=== PATIENT | female | born 2000 | race Hispanic/Latino ===

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

== ENCOUNTER 2021-10-14 18:08 | Emergency (ER) | payer OTHER ==
--- OUTSIDE RECORDS SUMMARY | 2021-10-14 18:11 | XMS REPORT | Continuity of Care Document ---
:2000 Author Organization [facility] t Address [address] [place] [address] Care Team Providers Name Role Phone Fatoumata Khan Primary Care Physician [phone] Gaviota Fong LMSW Attending Clinician Unavailable SUDARSHAN Attending Clinician Unavailable RADHA Attending Clinician Unavailable Ranjan MEZA Attending Clinician Unavailable Payers Payer Name Policy Type Policy Number Effective Date Expiration Date S ource Advance Directives Directive Decision Effective Termination Comments Source Date Date Healthcare Agents on N/A [facility] FileNameRelationshipHealthcare [facility] Agent Medical RelationshipCommunicationLeticia Branch [facility] [phone] (Mobile) Problems Condition Condition Condition Status Onset Resolution Last Treating Co mments Source Name Details Category Date Date Treatment Clinician Date Vitamin D Vitamin D Disease Active Uni vers deficiency deficiency 03-05 it y of 00:00: [address] Anxiety Anxiety Disease Active Univers and and 03-05 [place] [facility] [place] Irritabili Irritabili Disease Active U nivers ty and ty and 03-05 ity of anger anger 00:00: [address] Class 1 Class 1 Disease Active Univers obesity obesity 03-05 ity of due to due to 00:00: [place] excess excess 00 Medical calories calories Branch without without serious serious comorbidit comorbidit y with y with body mass body mass index index (BMI) of (BMI) of 34.0 to 34.0 to 34.9 in 34.9 in adult adult Ingrown Ingrown Disease Active Univers hair hair - ity of 00:00: [place] [facility] Nexplanon Nexplanon Disease Active 2018-[address] in place -13 ity of 00:00: [place] 00 Medical Branch Other Other Disease Active 2018-08 [facility] general general 1-04 ity of counseling counseling 00:00: Jack conklin and advice and advice 00 Me dical for for Branch contracept contracept nancie nancie management management Routine Routine Disease Active 2018-08 [facility] 0-14 it y of follow[place] [facility] Allergies, Adverse Reactions, Alerts Allergy Allergy Status Severity Reaction(s) Onset Inactive Treating Comm ents Source Name Type Date Date Clinician NO KNOWN Drug Active Univers ALLERGIE Class ity of S [facility] Social History Social Habit Start Date Stop Date Quantity Comments Source History SDOH University o f Alcohol Frequency [place] M ed[facility] History SDOH University o f Alcohol Std [place] Medical Drinks Branch History SDOH University o f Alcohol Binge [place] [facility] [place] Alcohol intake 2021-03-05 2021-03-05 Current drinker Unive rsity of 00:00:00 00:00:00 of alcohol [place] [facility] (finding) [place] Alcohol Comment 2021-03-04 2021-03-04 occassional/rare Uni versity of 00:00:00 00:00:[address] [facility] Tobacco use and 2018-11-10 2018-11-10 Never used Universit y of exposure 00:00:00 00:00:[address] [facility] Sex Assigned At [birth year] Universit y of 00:00:00 00:00:[address] [facility] Smoking Status Start Date Stop Date Source [facility] Medications Ordered Filled Start Stop Current Ordering Indication Dosage Frequency Signature Comments Components Source Medication Medication Date Date Medication? Clinician (SIG) Name Name ergocalcife Yes [id number] Take 1 Univers rol, 7-13 capsule by ity of vitamin d2, 00:00: mouth [place] (VITAMIN 00 weekly. Medical D2) 1,250 Branch mcg (50,000 unit) capsule traZODone Yes [id number] 50mg Take 1 U nivers 50 mg 7-12 tablet by ity of tablet 00:00: mouth at [place] 00 bedtime. Medical Branch levonorgest 2019-08 Yes [id number] 1{tbl} Take 1 Univers rel-ethinyl 1-18 tablet by ity of estradiol 00:00: mouth [place] (SRONYX) 00 daily. Medical 0.1-20 Branch mg-mcg per tablet Immunizations Ordered Filled Immunization Date Status Comments [facility] e Immunization Name Name Influenza Virus 2020-07-11 Completed Universit y of Vaccine Quad .5 mL 00:00:00 [facility] IM 6+ MO Branch HPV9 2019-05-16 Completed University 00:00:[address] [facility] TDAP (ADACEL) 2019-03-07 Completed University of VACCINE 00:00:[address] [facility] Influenza Virus 2018-11-10 Completed Universit y of Vaccine Quad .5 mL 00:00:00 [facility] 6+ MO Branch HPV 2015-04-17 Completed [facility] 00:00:[address] [facility] Procedures This patient has no known procedures. Encounters Start End Encounter Admission Attending Care Care Encounter Source Date/Time Date/Time Type Type Clinicians Facility Department ID 2021-09-17 2021-09-17 JOSEFINA Schuler [id number] Univers 00:00:00 00:00:00 Management Naa [place] [id number] [id number] [address] 2021-04-08 2021-04-08 Outpatient R SUDARSHAN [facility] [id number] Univers 15:00:00 15:00:00 [facility] [id number] 2021-04-08 [facility] [id number] Univers 15:00:00 15:00:00 [facility] 2021-03-04 2021-03-04 Outpatient R RADHA [facility] [id number] Univers 15:00:00 15:00:00 VICTORIA [id number] mary o [facility] 2021-03-04 2021-03-04 [facility] [id number] Univers 15:00:00 15:00:[address] [facility] 2021-02-06 2021-02-06 Outpatient R DERRICK, [facility] [id number] Univers 13:15:00 13:15:00 FATOUMATA [id number] ity o f [facility] 2020-10-11 2020-10-11 Outpatient R AKINSIPE, [facility] [id number] Univers 15:15:00 15:15:00 FATOUMATA [id number] ity o f [facility] 2020-10-11 2020-10-11 Outpatient R AKINSIPE, [facility] [id number] Univers 15:15:00 15:15:00 FATOUMATA ity o [facility] 2020-09-11 2020-09-11 Outpatient R AKINSIPE, [facility] [id number] Univers 15:00:00 15:00:00 FATOUMATA [id number] ity o [facility] 2020-09-11 2020-09-11 Outpatient R AKINSIPE, [facility] [id number] Univers 15:00:00 15:00:00 FATOUMATA ity o [facility] 2020-07-11 2020-07-11 Outpatient R AKINSIPE, [facility] [id number] Univers 16:00:00 16:00:00 FATOUMATA [id number] ity o [facility] 2020-07-11 2020-07-11 Outpatient R AKINSIPE, [facility] [id number] Univers 16:00:00 16:00:00 FATOUMATA ity o [facility] 2020-07-10 2020-07-10 Outpatient R AKINSIPE, [facility] [id number] Univers 15:00:00 15:00:00 FATOUMATA [id number] ity o [facility] 2020-07-10 2020-07-10 Outpatient R AKINSIPE, [facility] [id number] Univers 15:00:00 15:00:00 FATOUMATA ity o [facility] 2020-06-20 2020-06-20 Outpatient R AKINSIPE, [facility] [id number] Univers 08:15:00 08:15:00 FATOUMATA [id number] ity o [facility] 2020-06-20 2020-06-20 Outpatient R AKINSIPE, [facility] [id number] Univers 08:15:00 08:15:[address] [facility] 2020-01-24 2020-01-24 Outpatient R DERRIKC [facility] [id number] Univers 15:30:00 15:30:00 FATOUMATA [id number] mary silva [facility] 2020-01-24 2020-01-24 Outpatient R DERRICK [facility] [id number] Univers 15:30:00 15:30:00 FATOUMATA hernandez [facility] Results This patient has no known results.
--- NOTE | 2021-10-14 21:12 | RAD REPORT ---
EXAM DESCRIPTION: Abdelrahman Single View10/14/2021 9:05 pm CLINICAL HISTORY: Chest pain COMPARISON: 2015 FINDINGS: The lungs appear clear of acute infiltrate. The heart is normal size IMPRESSION: No acute abnormalities displayed
[2021-10-14] MEDS ORDERED: KETOROLAC 30 MG/ML INJ ONE (21:21)
[2021-10-14] MEDS ORDERED: METHYLPREDNISOLONE 125 MG INJ ONE (21:21)
[2021-10-14 21:29] LABS: Urine Blood Trace-intact (Negative); Urine Glucose Negative (Negative); Urine Protein Negative (Negative)
[2021-10-14 21:56] LABS: Absolute Lymphocytes (CBC) 3.5 K/uL (0.7-4.9); Hematocrit 38.8 % (36.0-45.0); Lymphocytes % 37.5 % (15.3-44.8); MPV 7.2 fL (7.6-11.3); RBC Red Blood Cell Count 4.52 M/uL (3.86-4.86)
[2021-10-14 22:05] LABS: BUN Blood Urea Nitrogen 6 mg/dL (7-18); Bicarbonate 28 mmol/L (21-32); Glucose Level 111 mg/dL (74-106); Potassium 3.4 mmol/L (3.5-5.1); Sodium Level 140 mmol/L (136-145)
--- NOTE | 2021-10-14 22:13 | EDPHYS ---
Physician Documentation [facility] Name: Erna Villeda Age: 20 yrs Sex: Female : 2000 Arrival Date: 10/14/2021 Time: 18:11 Bed 12 Private MD: ED Physician Fernando Alston HPI: 10/14 21:39 This 20 yrs old Female presents to ER via Ambulatory with complaints of Back kdr Pain, Shortness Of Breath. 21:39 The patient presents with pain that is acute, with no known mechanism of injury. The kdr symptoms are located in the. Onset: The symptoms/episode began/occurred gradually, 1 week(s) ago. The pain does not radiate. Associated signs and symptoms: Pertinent positives: weakness, Shortness of breath. The problem was sustained from unknown cause. Modifying factors: The patient symptoms are alleviated by nothing, the patient symptoms are aggravated by any movement, movement. Severity of symptoms: At their worst the symptoms were mild, in the emergency department the symptoms are unchanged. The patient has not experienced similar symptoms in the past. The patient has not recently seen a physician. Patient states that she has had back pain for about a week and also has been short of breath. She feels as if the pain prohibits her from taking a deep breath makes her short of breath. She denies any cough, fever or other associated upper respiratory symptoms. Historical: - Allergies: 18:47 No Known Allergies; ph - PMHx: 18:47 UTI; ph - Immunization history:: Adult Immunizations unknown. - Social history:: Smoking status: Patient denies any tobacco usage or history of. ROS: 21:59 Constitutional: Negative for fever, chills, and weight loss, Eyes: Negative for injury, kdr pain, redness, and discharge, ENT: Negative for injury, pain, and discharge, Neck: Negative for injury, pain, and swelling, Cardiovascular: Negative for chest pain, palpitations, and edema, Abdomen/GI: Negative for abdominal pain, nausea, vomiting, diarrhea, and constipation, : Negative for injury, bleeding, discharge, and swelling, MS/Extremity: Negative for injury and deformity, Skin: Negative for injury, rash, and discoloration, Neuro: Negative for headache, weakness, numbness, tingling, and seizure activity. Psych: Negative for depression, anxiety, suicide ideation, homicidal ideation, and hallucinations, Allergy/Immunology: Negative for hives, rash, and allergies, Endocrine: Negative for neck swelling, polydipsia, polyuria, polyphagia, and marked weight changes, Hematologic/Lymphatic: Negative for swollen nodes, abnormal bleeding, and unusual bruising. 21:59 Respiratory: Positive for dyspnea on exertion, shortness of breath, on exertion. Negative for cough, hemoptysis, orthopnea, pleurisy, sputum production. 21:59 Back: Positive for pain at rest, pain with movement, of the left scapular area and right scapular area. 22:14 : Positive for urinary symptoms, burning with urination. kdr Exam: 21:59 Constitutional: This is a well developed, well nourished patient who is awake, alert, kdr and in no acute distress. Head/Face: Normocephalic, atraumatic. Eyes: Pupils equal round and reactive to light, extra-ocular motions intact. Lids and lashes normal. Conjunctiva and sclera are non-icteric and not injected. Cornea within normal limits. Periorbital areas with no swelling, redness, or edema. Neck: Trachea midline, no thyromegaly or masses palpated, and no cervical lymphadenopathy. Supple, full range of motion without nuchal rigidity, or vertebral point tenderness. No Meningismus. Chest/axilla: Normal chest wall appearance and motion. Nontender with no deformity. No lesions are appreciated. Cardiovascular: Regular rate and rhythm with a normal S1 and S2. No gallops, murmurs, or rubs. Normal PMI, no JVD. No pulse deficits. Respiratory: Lungs have equal breath sounds bilaterally, clear to auscultation and percussion. No rales, rhonchi or wheezes noted. No increased work of breathing, no retractions or nasal flaring. Abdomen/GI: Soft, non-tender, with normal bowel sounds. No distension or tympany. No guarding or rebound. No evidence of tenderness throughout. Back: No spinal tenderness. No costovertebral tenderness. Full range of motion. Skin: Warm, dry with normal turgor. Normal color with no rashes, no lesions, and no evidence of cellulitis. MS/ Extremity: Pulses equal, no cyanosis. Neurovascular intact. Full, normal range of motion. Neuro: Awake and alert, GCS 15, oriented to person, place, time, and situation. Cranial nerves II-XII grossly intact. Motor strength 5/5 in all extremities. Sensory grossly intact. Cerebellar exam normal. Normal gait. Psych: Awake, alert, with orientation to person, place and time. Behavior, mood, and affect are within normal limits. Vital Signs: 18:45 BP 114 / 76; Pulse 77; Resp 18; Temp 98.9; Pulse Ox 100% on R/A; Weight 63.5 kg; Height ph 4 ft. 9 in. (144.78 cm); 22:24 BP 125 / 74; Pulse 66; Resp 16 S; Temp 97.7(O); Pulse Ox 100% on R/A; bb 18:45 Body Mass Index 30.30 (63.50 kg, 144.78 cm) ph MDM: 21:59 Data reviewed: vital signs, nurses notes, lab test result(s), radiologic studies. kdr Counseling: I had a detailed discussion with the patient and/or guardian regarding: the historical points, exam findings, and any diagnostic results supporting the discharge/admit diagnosis, lab results, radiology results, the need for outpatient follow up. 22:12 Patient medically screened. kdr 10/14 20:32 Order name: CBC with Diff; Complete Time: 22:05 kdr 10/14 20:32 Order name: Chem 7; Complete Time: 22:11 kdr 10/14 20:30 Order name: CXR XRAY; Complete Time: 22:05 kdr 10/14 21:28 Order name: Urine Dipstick-Ancillary; Complete Time: 22:05 EDCO 10/14 21:31 Order name: Urine --Ancillary (enter results) mw 10/14 20:30 Order name: Urine Dipstick-Ancillary (obtain specimen); Complete Time: 21:31 kdr 10/14 20:30 Order name: Urine Test (obtain specimen); Complete Time: 21:31 kdr Administered Medications: 20:34 CANCELLED (Other Intervention Used): Ketorolac 15 mg IM once bb 21:31 Drug: SOLU-Medrol (methylPrednisoLONE) 125 mg Route: IVP; Site: left antecubital; bb 22:12 Follow up: Response: No adverse reaction bb 21:36 Drug: Ketorolac 15 mg Route: IVP; Site: left antecubital; bb 22:12 Follow up: Response: No adverse reaction bb 22:12 Drug: Bactrim (trimethoprim-sulfamethoxazole) (160 mg-800 mg (DS) 1 tablet Route: PO; bb 22:26 Follow up: Response: No adverse reaction bb Disposition Summary: 10/14/21 22:12 Discharge Ordered Location: Home kdr Problem: new kdr Symptoms: have improved kdr Condition: Stable kdr Diagnosis - Chest pain on breathing kdr - UTI/ Urinary tract infection, site not specified kdr Followup: kdr - With: Private Physician - When: 2 - 3 days - Reason: If symptoms return, Further diagnostic work-up, Recheck today's complaints, Continuance of care, Re-evaluation by your physician Discharge Instructions: - Discharge Summary Sheet kdr - Chest Wall Pain kdr - Costochondritis kdr - Dysuria kdr - Urinary Tract Infection, Adult, [id number] kdr Forms: - Medication Reconciliation Form kdr - Thank You Letter kdr - Antibiotic Education kdr Prescriptions: - Ibuprofen 600 mg Oral Tablet - take 1 tablet by ORAL route every 6 hours As needed take with food; 30 tablet; kdr Refills: 0, Product Selection Permitted - Medrol (Ton) 4 mg Oral Tablets, Dose Pack - take 1 tablet by ORAL route as directed - follow package instructions; 1 kdr packet; Refills: 0, Product Selection Permitted - Bactrim DS 800-160 mg Oral Tablet - take 1 tablet by ORAL route every 12 hours for 7 days; 14 tablet; Refills: 0, kdr Product Selection Permitted Signatures: Dispatcher [employer] Fernando Jones MD MD kdr Marian Heredia RN RN bb Yeni Dunham RN RN ph Corrections: (The following items were deleted from the chart) 20:34 20:31 Ketorolac 15 mg IM once ordered. kdr bb
--- NOTE | 2021-10-14 22:13 | ER ---
Nurse's Notes [facility] Name: Erna Villeda Age: 20 yrs Sex: Female : 2000 Arrival Date: 10/14/2021 Time: 18:11 Bed 12 Private MD: Diagnosis: Chest pain on breathing;UTI/ Urinary tract infection, site not specified Presentation: 10/14 18:45 Chief complaint: Patient states: Upper back pain x 1 week, also reports SOB, states, " ph It's like I can't breath good because of the pain." Denies cough, fever, or other symptoms, also denies injury. Coronavirus screen: Vaccine status: Patient reports being unvaccinated. Ebola Screen: No symptoms or risks identified at this time. Initial Sepsis Screen: Does the patient meet any 2 criteria? No. Patient's initial sepsis screen is negative. Does the patient have a suspected source of infection? No. Patient's initial sepsis screen is negative. Risk Assessment: Do you want to hurt yourself or someone else? Patient reports no desire to harm self or others. Onset of symptoms was October 14, 2021. 18:45 Method Of Arrival: Ambulatory ph 18:45 Acuity: SIVA 4 ph Historical: - Allergies: 18:47 No Known Allergies; ph - PMHx: 18:47 UTI; ph - Immunization history:: Adult Immunizations unknown. - Social history:: Smoking status: Patient denies any tobacco usage or history of. Screenin:22 Abuse screen: Denies threats or abuse. Nutritional screening: No deficits noted. bb Tuberculosis screening: No symptoms or risk factors identified. Fall Risk None identified. Assessment: 20:22 General: Appears in no apparent distress. well groomed, Behavior is calm, cooperative. bb General: Reports she has been having upper back pain x 1 week and SOB starting today. Pain: Complains of pain in back. Neuro: Level of Consciousness is awake, alert, obeys commands, Oriented to person, place, time, situation. Cardiovascular: Capillary refill < 3 seconds Patient's skin is warm and dry. Respiratory: Respiratory effort is even, unlabored, Respiratory pattern is regular. GI: No signs and/or symptoms were reported involving the gastrointestinal system. Derm: Skin is pink, warm \\T\\ dry. Musculoskeletal: Circulation, motion, and sensation intact. 22:23 Reassessment: Patient is alert, oriented x 3, equal unlabored respirations, skin bb warm/dry/pink. pt verbalized understanding of and agrees to plan of care states pain has improved, discharge instructions given pt ambulated with steady gait to exit. Vital Signs: 18:45 BP 114 / 76; Pulse 77; Resp 18; Temp 98.9; Pulse Ox 100% on R/A; Weight 63.5 kg; Height ph 4 ft. 9 in. (144.78 cm); 22:24 BP 125 / 74; Pulse 66; Resp 16 S; Temp 97.7(O); Pulse Ox 100% on R/A; bb 18:45 Body Mass Index 30.30 (63.50 kg, 144.78 cm) ph ED Course: 18:11 Patient arrived in ED. mr 18:47 Triage completed. ph 18:47 Arm band placed on Patient placed in waiting room, Patient notified of wait time. ph 19:32 Fernando Alston MD is Attending Physician. kdr 20:22 Marian Heredia RN is Primary Nurse. bb 20:22 Patient has correct armband on for positive identification. Call light in reach. bb 21:05 CXR XRAY In Process Unspecified. EDMS 21:30 Initial lab(s) drawn, by me, sent to lab. Urine collected: clean catch specimen, clear. bb Inserted saline lock: 22 gauge in left antecubital area, using aseptic technique. Blood collected. 22:25 No provider procedures requiring assistance completed. IV discontinued, intact, bb bleeding controlled, No redness/swelling at site. Pressure dressing applied. Administered Medications: 20:34 CANCELLED (Other Intervention Used): Ketorolac 15 mg IM once bb 21:31 Drug: SOLU-Medrol (methylPrednisoLONE) 125 mg Route: IVP; Site: left antecubital; bb 22:12 Follow up: Response: No adverse reaction bb 21:36 Drug: Ketorolac 15 mg Route: IVP; Site: left antecubital; bb 22:12 Follow up: Response: No adverse reaction bb 22:12 Drug: Bactrim (trimethoprim-sulfamethoxazole) (160 mg-800 mg (DS) 1 tablet Route: PO; bb 22:26 Follow up: Response: No adverse reaction bb Outcome: 22:12 Discharge ordered by . kdr 22:26 Discharged to home ambulatory. bb 22:26 Condition: stable 22:26 Discharge instructions given to patient, Instructed on discharge instructions, follow up and referral plans. medication usage, Demonstrated understanding of instructions, follow-up care, medications, Prescriptions given X 3. 22:32 Patient left the ED. bb Signatures: Dispatcher [employer] EDMS Fernando Alston MD MD kdr Rivera, Mary mr Marian Heredia RN RN bb Yeni Dunham RN RN ph
[2021-10-14] MEDS ORDERED: SMZ./TMP. 800/160 MG TABLET ONE (22:17)
[2021-10-14 23:54] VITALS: O2SAT 100
[2021-10-14 23:55] VITALS: BP 125/74; TEMP 97.7
== END 2021-10-14 22:32 | disposition home or self-care (01) ==
LOC: ER 18:08
DX: R07.1 Chest pain on breathing (principal); N39.0 Urinary tract infection, site not specified
CPT/HCPCS: 85025; 80048; 36415; 81025; 81003; 71045; 96375; 96374; 99284; J2930

== ENCOUNTER 2022-04-29 00:56 | Emergency (ER) | payer OTHER ==
--- OUTSIDE RECORDS SUMMARY | 2022-04-29 00:59 | XMS REPORT | Continuity of Care Document ---
:2000 Author Organization [facility] t Address [facility]3 Ruben Oswald [address] [place] [address] Care Team Providers Name Role Phone Katie Khan Primary Care Physician [phone] Katie Khan Attending Clinician [phone] Payers Payer Name Policy Type Policy Number Effective Date Expiration Date S ource Problems Condition Condition Condition Status Onset Resolution Last Treating Co mments Source Name Details Category Date Date Treatment Clinician Date Vitamin D Vitamin D Disease Active Uni vers deficiency deficiency 03-05 it y of 00:00: [address] Branch Anxiety Anxiety Disease Active Univers and and 7 [place] [facility] [place] Irritabili Irritabili Disease Active U nivers ty and ty and 03-05 ity of anger anger 00:00: [address] Obesity Obesity Disease Active Univers (BMI (BMI 7-13 ity of 30-39.9) 30-39.9) 00:00: [address] Branch Ingrown Ingrown Disease Active Univers hair hair - ity of 00:00: [address] Other Other Disease Active 2018-08 Univers general general 1-04 [place] advice and advice 00 Sd dical for for Branch contracept contracept nancie nancie management management Allergies, Adverse Reactions, Alerts This patient has no known allergies or adverse reactions. Social History Social Habit Start Date Stop Date Quantity Comments Source History [facility] University o f Alcohol Frequency [place] [facility] History [facility] University o f Alcohol Std [place] [facility] Branch History [facility] o f Alcohol Binge [place] [facility] Exposure to 2022-03-09 2022-03-19 Not sure University of SARS-CoV-2 00:00:00 08:35:00 [facility] (event) Branch Alcohol intake 2022-03-19 2022-03-19 Current drinker Unive rsity of 00:00:00 00:00:00 of alcohol [facility] (finding) [place] Alcohol Comment 2021-03-04 2021-03-04 occassional/rare Uni versity of 00:00:00 00:00:00 [facility] Tobacco use and 2018-11-10 2018-11-10 Smokeless tobacco Un iversity of exposure 00:00:00 00:00:00 non-user [facility] Sex Assigned At [birth year] Universit y of 00:00:00 00:00:00 [facility] Smoking Status Start Date Stop Date Source Never smoked tobacco [facility] Medications Ordered Filled Start Stop Current Ordering Indication Dosage Frequency Signature Comments Components Source Medication Medication Date Date Medication? Clinician (SIG) Name Name tanyai 2021- Yes [id number] 1000mg Take 2 Univers n 500 mg 7-29 07-30 tablets by ity of tablet 00:00[place] 04[place]59 [place] for 1 Medical dose. Branch levonorgest Yes [id number] 1{tbl} Take 1 Univers rel-ethinyl 7-27 tablet by [place]y of estradiol [place] (SRONYX[place] 00 the Medical 0.1-20 morning. Branch mg-mcg per tablet levonorgest Yes [id number] 1{tbl} Take 1 Univers rel-ethinyl 7-27 tablet [place] estradiol [place] (SR[place] 00 the Medical 0.1-20 morning. Branch mg-mcg per tablet Immunizations Ordered Filled Immunization Date Status Comments Sour e Immunization Name Name Influenza Virus 2020-07-11 Completed Universit y of Vaccine Quad .5 mL 00:00:00 [facility] IM 6+ MO [place] Influenza Virus 2020-07-11 Completed Universit y of Vaccine Quad .5 mL 00:00:00 [facility] 6+ [place] Branch HPV9 2019-05-16 Completed University of 00:00:00 [facility] HPV9 2019-05-16 Completed University of 00:00:00 [facility] TDAP (ADACEL) 2019-03-07 Completed University of VACCINE 00:00:00 [facility] TDAP (ADACEL) 2019-03-07 Completed University of VACCINE 00:00:00 [facility] Influenza Virus 2018-11-10 Completed Universit y of Vaccine Quad .5 mL 00:00:00 [facility] 6+ MO Branch Influenza Virus 2018-11-10 Completed Universit y of Vaccine Quad .5 mL 00:00:00 [facility] 6+ [place] Branch HPV 2015-04-17 Completed University of 00:00:00 [facility] HPV 2015-04-17 Completed University 00:00:00 [facility] Procedures This patient has no known procedures. Encounters Start End Encounter Admission Attending Care Care Encounter Source Date/Time Date/Time Type Type Clinicians Facility Department ID 2022-04-10 2022-04-10 Refill [facility] [id number] Univers 00:00:00 00:00:00 Katie Woodruff STICK WELDER [id number] ity of REGIONAL [id number] Guilherme as MATERNAL [id number] [facility] & CHILD [address] [place] [address] 2022-03-21 2022-03-21 Telephone [facility] [id number] Univers 00:00:00 00:00:00 Katie Woodruff STICK WELDER [id number] ity of REGIONAL [id number] Guil[place]me as MATERNAL [id number] [facility] & CHILD [address] [place] [address] Results This patient has no known results.
[2022-04-29] MEDS ORDERED: NA CHLORIDE 0.9% 1,000 ML ONE (02:12)
[2022-04-29 02:17] LABS: Urine Blood 1+ (Negative); Urine Glucose Negative (Negative); Urine Protein Negative (Negative); Urine Specific Gravity >=1.030 (1.005-1.030); Urine pH 6.5 (5.0-7.0)
[2022-04-29 02:37] LABS: Absolute Lymphocytes (CBC) 3.4 K/uL (0.7-4.9); Hematocrit 37.4 % (36.0-45.0); Lymphocytes % 37.7 % (15.3-44.8); MPV 7.1 fL (7.6-11.3); RBC Red Blood Cell Count 4.35 M/uL (3.86-4.86)
[2022-04-29 02:47] LABS: BUN Blood Urea Nitrogen 10 mg/dL (7-18); Bicarbonate 26 mmol/L (21-32); Glomerular Filtration Rate 134 ml/min (=/>90); Glucose Level 157 mg/dL (74-106); Potassium 3.5 mmol/L (3.5-5.1); Sodium Level 140 mmol/L (136-145)
[2022-04-29 02:53] LABS: HCG, Quantitative < 1 mIU/mL (1-3)
--- NOTE | 2022-04-29 03:00 | ER ---
Nurse's Notes [facility] Name: Erna Villeda Age: 21 yrs Sex: Female : 2000 Arrival Date: 04/29/2022 Time: 00:57 Bed 26 Private MD: Diagnosis: Abnormal uterine and vaginal bleeding, unspecified;Dysmenorrhea, unspecified Presentation: 04/29 01:25 Chief complaint: Patient states: "I have been cramping a bleeding a little, but it this tw5 isn't my time for my period. I have also been really nauseous, dizzy, and I have a headache.". Coronavirus screen: Vaccine status: Patient reports receiving the 2nd dose of the covid vaccine. unknown. Ebola Screen: Patient negative for fever greater than or equal to 101.5 degrees Fahrenheit, and additional compatible Ebola Virus Disease symptoms Patient denies exposure to infectious person. Patient denies travel to an Ebola-affected area in the 21 days before illness onset. Initial Sepsis Screen: Does the patient meet any 2 criteria? HR > 90 bpm. Does the patient have a suspected source of infection? Yes: Acute abdominal pain. Risk Assessment: Do you want to hurt yourself or someone else? Patient reports no desire to harm self or others. Onset of symptoms was April 28, 2022. 01:25 Method Of Arrival: Ambulatory tw5 01:25 Acuity: SIVA 3 tw5 Triage Assessment: 01:59 General: Appears in no apparent distress. Behavior is calm, cooperative, appropriate tw5 for age. Pain: Complains of pain in suprapubic area, right lower quadrant and left lower quadrant Pain currently is 5 out of 10 on a pain scale. at worst was 8 out of 10 on a pain scale. GI: Bowel sounds present X 4 quads. 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 - Social history:: Smoking status: Patient denies any tobacco usage or history of. Screenin:00 Abuse screen: Denies threats or abuse. Denies injuries from another. Nutritional tw5 screening: No deficits noted. Tuberculosis screening: No symptoms or risk factors identified. Fall Risk None identified. Assessment: 02:00 General: Appears in no apparent distress. comfortable, Behavior is calm. Neuro: No tw5 deficits noted. Cardiovascular: No deficits noted. Respiratory: No deficits noted. GI: Abd is soft and non tender X 4 quads. Reports cramping. Vital Signs: 01:25 BP 120 / 56; Pulse 97; Resp 18; Temp 97.8; Pulse Ox 97% ; Weight 65.77 kg; Height 4 ft. tw5 9 in. (144.78 cm); Pain 8/10; 03:14 BP 112 / 58; Pulse 80; Resp 18; Pulse Ox 100% ; tw5 01:25 Body Mass Index 31.38 (65.77 kg, 144.78 cm) tw5 ED Course: 00:57 Patient arrived in ED. ja2 01:15 Don Alves MD is Attending Physician. [facility] 01:25 Nicole Fortune is Primary Nurse. tw5 01:59 Triage completed. tw5 01:59 Arm band placed on Patient placed in an exam room. tw5 02:00 Awaiting lab results. tw5 02:00 Patient has correct armband on for positive identification. Bed in low position. Call tw5 light in reach. Side rails up X 1. Pulse ox on. NIBP on. Door closed. Noise minimized. Moved to private room. Warm blanket given. Verbal reassurance given. 02:00 Urine collected: clean catch specimen. tw5 02:13 Basic Metabolic Panel Sent. tw5 02:13 CBC with Diff Sent. tw5 02:13 Quantitative Hcg Sent. tw5 02:14 Abo/rh Typing Sent. tw5 02:14 Initial lab(s) drawn, by ca, sent to lab. Inserted saline lock: 20 gauge in right tw5 antecubital area, using aseptic technique. Blood collected. 03:06 US Transvaginal Ob In Process Unspecified. EDMS 03:14 No provider procedures requiring assistance completed. IV discontinued, intact, tw5 bleeding controlled, No redness/swelling at site. Pressure dressing applied. Administered Medications: 02:13 Drug: NS 0.9% 1000 ml Route: IV; Rate: 1 bolus; Site: right antecubital; tw5 03:14 Follow up: Response: No adverse reaction; IV Status: Completed infusion; IV Intake: tw5 1000ml 03:14 Drug: Ketorolac 30 mg Route: IVP; Site: right antecubital; tw5 03:14 Follow up: Response: No adverse reaction; Medication administered at discharge. Medication: 02:00 VIS not applicable for this client. tw5 Intake: 03:14 IV: 1000ml; Total: 1000ml. Outcome: 02:59 Discharge ordered by MD. hogue 03:14 Discharged to home ambulatory. tw 03:14 Condition: improved 03:14 Discharge instructions given to patient, Instructed on discharge instructions, follow up and referral plans. Demonstrated understanding of instructions, follow-up care, medications, Prescriptions given X 1. 03:15 Patient left the ED. Signatures: Dispatcher [employer] Don Kerr MD MD cha Alexander, Nicole Robertson tw5
--- NOTE | 2022-04-29 03:01 | EDPHYS ---
Physician Documentation [facility] Name: Erna Villeda Age: 21 yrs Sex: Female : 2000 Arrival Date: 04/29/2022 Time: 00:57 Bed 26 Private MD: ED Physician Don Alves HPI: 04/29 02:55 This 21 yrs old Female presents to ER via Ambulatory with complaints of lennie Abdominal Cramping, Vaginal Bleeding, Headache, Dizziness. 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 - Social history:: Smoking status: Patient denies any tobacco usage or history of. ROS: 02:55 Constitutional: Negative for fever, chills, and weight loss, Eyes: Negative for injury, lennie pain, redness, and discharge, ENT: Negative for injury, pain, and discharge, Neck: Negative for injury, pain, and swelling, Cardiovascular: Negative for chest pain, palpitations, and edema, Respiratory: Negative for shortness of breath, cough, wheezing, and pleuritic chest pain, Abdomen/GI: Negative for abdominal pain, nausea, vomiting, diarrhea, and constipation, Back: Negative for injury and pain, MS/Extremity: Negative for injury and deformity, Skin: Negative for injury, rash, and discoloration, Neuro: Negative for headache, weakness, numbness, tingling, and seizure, Psych: Negative for depression, anxiety, suicide ideation, homicidal ideation, and hallucinations, Allergy/Immunology: Negative for hives, rash, and allergies, Endocrine: Negative for neck swelling, polydipsia, polyuria, polyphagia, and marked weight changes, Hematologic/Lymphatic: Negative for swollen nodes, abnormal bleeding, and unusual bruising. 02:55 : Positive for vaginal bleeding, menstrual abnormality. Exam: 02:55 Constitutional: This is a well developed, well nourished patient who is awake, alert, lennie and in no acute distress. Head/Face: Normocephalic, atraumatic. Eyes: Pupils equal round and reactive to light, extra-ocular motions intact. Lids and lashes normal. Conjunctiva and sclera are non-icteric and not injected. Cornea within normal limits. Periorbital areas with no swelling, redness, or edema. ENT: Nares patent. No nasal discharge, no septal abnormalities noted. Tympanic membranes are normal and external auditory canals are clear. Oropharynx with no redness, swelling, or masses, exudates, or evidence of obstruction, uvula midline. Mucous membranes moist. Neck: Trachea midline, no thyromegaly or masses palpated, and no cervical lymphadenopathy. Supple, full range of motion without nuchal rigidity, or vertebral point tenderness. No Meningismus. Chest/axilla: Normal chest wall appearance and motion. Nontender with no deformity. No lesions are appreciated. Cardiovascular: Regular rate and rhythm with a normal S1 and S2. No gallops, murmurs, or rubs. Normal PMI, no JVD. No pulse deficits. Respiratory: Lungs have equal breath sounds bilaterally, clear to auscultation and percussion. No rales, rhonchi or wheezes noted. No increased work of breathing, no retractions or nasal flaring. Abdomen/GI: Soft, non-tender, with normal bowel sounds. No distension or tympany. No guarding or rebound. No evidence of tenderness throughout. Back: No spinal tenderness. No costovertebral tenderness. Full range of motion. Skin: Warm, dry with normal turgor. Normal color with no rashes, no lesions, and no evidence of cellulitis. MS/ Extremity: Pulses equal, no cyanosis. Neurovascular intact. Full, normal range of motion. Neuro: Awake and alert, GCS 15, oriented to person, place, time, and situation. Cranial nerves II-XII grossly intact. Motor strength 5/5 in all extremities. Sensory grossly intact. Cerebellar exam normal. Normal gait. Psych: Awake, alert, with orientation to person, place and time. Behavior, mood, and affect are within normal limits. 02:55 : CVA tenderness, is absent, Pelvic Exam: is not necessary for this patient, Gravid exam: Sexual behavior: the patient is sexually active, and reports a single partner. Vital Signs: 01:25 BP 120 / 56; Pulse 97; Resp 18; Temp 97.8; Pulse Ox 97% ; Weight 65.77 kg; Height 4 ft. tw5 9 in. (144.78 cm); Pain 8/10; 03:14 BP 112 / 58; Pulse 80; Resp 18; Pulse Ox 100% ; tw5 01:25 Body Mass Index 31.38 (65.77 kg, 144.78 cm) tw5 MDM: 01:[address] [facility] 02:57 Differential diagnosis: dysfunctional uterine bleeding, endometriosis, lennie menometrorrhagia, menorrhea, nonspecific abdominal pain, urinary tract infection. Data reviewed: vital signs, nurses notes, lab test result(s), radiologic studies, ultrasound. Data interpreted: hall monitor: rate is 973 beats/min, rhythm is regular, Pulse oximetry: is not applicable for this patient encounter. Counseling: I had a detailed discussion with the patient and/or guardian regarding: the historical points, exam findings, and any diagnostic results supporting the discharge/admit diagnosis, lab results, radiology results, the need for outpatient follow up, for definitive care, an OB/Gyne specialist. 04/29 01:19 Order name: Abo/rh Typing [facility] 04/29 01:19 Order name: Basic Metabolic Panel; Complete Time: 02:[address] [facility] 04/29 01:19 Order name: CBC with Diff; Complete Time: 02:[address] [facility] 04/29 01:19 Order name: Quantitative Hcg; Complete Time: 02:[address] [facility] 04/29 02:18 Order name: Urine Dipstick-Ancillary; Complete Time: 02:38 EDMS 04/29 01:19 Order name: IV Saline Lock; Complete Time: 02:[address] [facility] 04/29 01:19 Order name: Labs collected and sent; Complete Time: 02:[address] [facility] 04/29 01:19 Order name: NPO; Complete Time: 02:[address] [facility] 04/29 01:19 Order name: Urine Dipstick-Ancillary (obtain specimen); Complete Time: 02:[address] [facility] 04/29 01:19 Order name: Urine Test (obtain specimen); Complete Time: 02:[address] [facility] 04/29 01:19 Order name: US Transvaginal Ob [facility] Administered Medications: 02:13 Drug: NS 0.9% 1000 ml Route: IV; Rate: 1 bolus; Site: right antecubital; tw5 03:14 Follow up: Response: No adverse reaction; IV Status: Completed infusion; IV Intake: tw5 1000ml 03:14 Drug: Ketorolac 30 mg Route: IVP; Site: right antecubital; tw5 03:14 Follow up: Response: No adverse reaction; Medication administered at discharge. tw5 Disposition Summary: 04/29/22 02:59 Discharge Ordered Location: Home lennie Problem: new lennie Symptoms: have improved lennie Condition: Stable lennie Diagnosis - Abnormal uterine and vaginal bleeding, unspecified lennie - Dysmenorrhea, unspecified lennie Followup: lennie - With: Private Physician - When: 2 - 3 days - Reason: Recheck today's complaints, Continuance of care, Re-evaluation by your physician Discharge Instructions: - Discharge Summary Sheet lennie - Abnormal Uterine Bleeding lennie - Dysmenorrhea lennie - Dysfunctional Uterine Bleeding lennie - Pelvic Pain, Female lennie - Pelvic Pain, Female, [id number] lennie - Abnormal Uterine Bleeding, [id number] lennie - Dysmenorrhea, [id number] lennie Forms: - Medication Reconciliation Form lennie - Thank You Letter lennie - Antibiotic Education lennie - Prescription Opioid Use [facility] Prescriptions: - Ibuprofen 600 mg Oral Tablet - take 1 tablet by ORAL route every 6 hours As needed take with food; 20 tablet; [facility] Refills: 0, Product Selection Permitted Signatures: Dispatcher [employer] Don Kerr MD MD cha Wood, Tiffany tw5
[2022-04-29] MEDS ORDERED: KETOROLAC 30 MG/ML INJ ONE (03:19)
[2022-04-29 06:32] VITALS: TEMP 97.8
[2022-04-29 06:43] VITALS: BP 112/58; O2SAT 100
--- NOTE | 2022-04-29 15:08 | RAD REPORT ---
EXAM DESCRIPTION: US - Transvaginal OB - 04/29/2022 7:18 am CLINICAL HISTORY: ABD CRAMPING, TECHNIQUE: Real-time transabdominal obstetrical ultrasound of the maternal pelvis and a first trimes ter with image documentation. COMPARISON: No relevant prior studies available. FINDINGS: Gestation: No intrauterine gestational sac. Uterus/cervix: The uterus is anteverted. No myometrial mass. Ovaries: Right and left ovarian measurements are 2.5 x 1.9 x 2.1 cm and 4.3 x 1.8 x 2 cm, respectiv camila. No mass. Free fluid: No free fluid. IMPRESSION: No demonstrable intrauterine . In light of the clinical history of positive pre gnancy test, the findings may represent sequelae of recent spontaneous . The possibility of v paulina early intrauterine or extrauterine cannot be excluded. Careful follow-up including pilo elation with beta-hCG levels is recommended. Electronically signed by: Tammie Cm MD 04/29/2022 3:31 AM CDT Due to temporary technical issues with the PACS/Fluency reporting system, reports are being signed by the in house radiologists without review as a courtesy to insure prompt reporting. The interpreting radiologist is fully responsible for the content of the report.
== END 2022-04-29 03:15 | disposition home or self-care (01) ==
LOC: ER 00:56
DX: N94.6 Dysmenorrhea, unspecified (principal)
CPT/HCPCS: 85025; 80048; 36415; 86900; 86901; 84702; 81003; 76817; J7030; 96361; 96374; 99284

== ENCOUNTER 2023-02-07 00:52 | Emergency (ER) | payer OTHER ==
--- OUTSIDE RECORDS SUMMARY | 2023-02-07 00:55 | XMS REPORT | Continuity of Care Document ---
:2000 Author Organization [facility] t Address [address] [place] [address] [address] [place] [address] Care Team Providers Name Role Phone Katie Khan Primary Care Physician KATIE MEZA Attending Clinician Unavailable Katie Khan Attending Clinician [phone] MALA MCCLOUD Attending Clinician Unavailable Doctor Unassigned, [place] Attending Clinician Unavailable Naa Fong LMSW Attending Clinician Unavailable CHALO HEATON Attending Clinician Unavailable VICTORIA GARCIA Attending Clinician Unavailable Payers Payer Name Policy Type Policy Number Effective Date Expiration Date [facility] [id number] 2022 [facility] [place] STAR 00:00:00 Problems Condition Condition Condition Status Onset Resolution Last Treating Co mments Source Name Details Category Date Date Treatment Clinician Date Vitamin D Vitamin D Disease Active Uni vers deficiency deficiency 03-05 it y of 00:00: [address] Branch Anxiety Anxiety Disease Active Univers and and 03-05 [place] [facility] [place] Irritabili Irritabili Disease Active U nivers ty and ty and 03-05 ity of anger anger 00:: [address] Obesity Obesity Disease Active Univers (BMI (BMI 7- ity of 30-39.9) 30-39.9) 00:00: [address] Ingrown Ingrown Disease Active Univers hair hair 09-19 ity of 00:00: [place] 00 Medical Branch Other Other Disease Active 2018-08 [facility] general general 1-04 ity of counseling [place] advice and advice 00 Me dical for for Branch contracept contracept nancie nancie management management Allergies, Adverse Reactions, Alerts Allergy Allergy Status Severity Reaction(s) Onset Inactive Treating Comm ents Source Name Type Date Date Clinician NO KNOWN Drug Active Univers ALLERGIE Class ity of S [facility] Social History Social Habit Start Date Stop Date Quantity Comments Source History SDOH University o f Alcohol Frequency [place] [facility] History SDOH University o f Alcohol Std [place] [facility] Drinks [facility] History SDAK University o f Alcohol Binge [place] [facility] Exposure to 2022-08-23 2022-09-02 Not sure University of SARS-CoV-2 00:00:00 09:26:00 [facility] (event) [place] Alcohol intake 2022-03-19 2022-03-19 Current drinker Unive rsity of 00:00:00 00:00:[address] [facility] (finding) [place] Alcohol Comment 2021-03-04 2021-03-04 occassional/rare Uni versity of 00:00:00 00:00:00 [facility] Tobacco use and 2018-11-10 2018-11-10 Smokeless tobacco Un iversity of exposure 00:00:00 00:00:00 non-user [facility] Sex Assigned At [birth year] Universit y of 00:00:00 00:00:00 [facility] Smoking Status Start Date Stop Date Source Never smoked tobacco [facility] Medications Ordered Filled Start Stop Current Ordering Indication Dosage Frequency Signature Comments Components Source Medication Medication Date Date Medication? Clinician (SIG) Name Name levonorgest Yes [id number] 1{tbl} Take 1 Univers rel-ethinyl 9-26 tablet by ity of estradiol [place] 00 the Medical 0.1-20 morning. Branch mg-mcg per tablet levonorgest Yes [id number] 1{tbl} Take 1 Univers rel-ethinyl 9-26 tablet by ity of estradiol [place] 00 the Medical 0.1-20 morning. Branch mg-mcg per tablet levonorgest Yes [id number] 1{tbl} Take 1 Univers rel-ethinyl 9-26 tablet by ity of estradiol [place] 00 the Medical 0.1-20 morning. Branch mg-mcg per tablet levonorgest Yes [id number] 1{tbl} Take 1 Univers rel-ethinyl 9-26 tablet by ity of estradiol [place] ([place] 00 the Medical 0.1-20 morning. Branch mg-mcg per tablet azithromyci 2021- No [id number] 1000mg Take 2 Univers n 500 mg 7-29 07-30 tablets by ity of tablet 00:00: 04:59 [place] now for 1 Medical dose. Branch levonorgest Yes [id number] 1{tbl} Take 1 Univers rel-ethinyl 7-27 tablet by ity of estradiol [place] ([place] 00 the Medical 0.1-20 morning. Branch mg-mcg per tablet levonorgest Yes [id number] 1{tbl} Take 1 Univers rel-ethinyl 7-27 tablet by ity of estradiol [place] ([place] 00 the Medical 0.1-20 morning. Branch mg-mcg per tablet levonorgest Yes [id number] 1{tbl} Take 1 Univers rel-ethinyl 7-27 tablet by ity of estradiol [place] (SR[place] 00 the Medical 0.1-20 morning. Branch mg-mcg per tablet levonorgest Yes [id number] 1{tbl} Take 1 Univers rel-ethinyl 7-27 tablet by ity of estradiol [place] (SR[place] 00 the Medical 0.1-20 morning. Branch mg-mcg per tablet levonorgest 2021- No [id number] 1{tbl} Take 1 Univers rel-ethinyl 7-27 09-21 tablet by it y of estradiol 00:00: 00:00 mouth in [place] (SRONYX) 00 :00 the Medical 0.1-20 morning. Branch mg-mcg per tablet Immunizations Ordered Filled Immunization Date Status Comments [facility] e Immunization Name Name Influenza Virus 2020-07-11 Completed Universit y of Vaccine Quad .5 mL 00:00:00 [place] [facility] IM 6+ MO Branch Influenza Virus 2020-07-11 Completed Universit y of Vaccine [place] .5 mL 00:00:00 [place] [facility] IM 6+ MO Branch Influenza Virus 2020-07-11 Completed Universit y of Vaccine [place] .5 mL 00:00:00 [place] [facility] IM 6+ MO Branch Influenza Virus 2020-07-11 Completed Universit y of Vaccine [place] .5 mL 00:00:00 [place] [facility] IM 6+ MO Branch Influenza Virus 2020-07-11 Completed Universit y of Vaccine [place] .5 mL 00:00:00 [place] [facility] IM 6+ MO Branch Influenza Virus 2020-07-11 Completed Universit y of Vaccine Quad .5 mL 00:00:00 [place] [facility] IM 6+ MO Branch Influenza Virus 2020-07-11 Completed Universit y of Vaccine [place] .5 mL 00:00:00 [place] [facility] IM 6+ MO Branch Influenza Virus 2020-07-11 Completed Universit y of Vaccine [place] .5 mL 00:00:00 [facility] 6+ MO Branch HPV9 2019-05-16 Completed University of 00:00:00 [facility] HPV9 2019-05-16 Completed University of 00:00:00 [facility] HPV9 2019-05-16 Completed University of 00:00:00 [facility] HPV9 2019-05-16 Completed University of 00:00:00 [facility] Branch HPV9 2019-05-16 Completed University of 00:00:00 [facility] Branch HPV9 2019-05-16 Completed University of 00:00:00 [facility] Branch HPV9 2019-05-16 Completed University of 00:00:00 [facility] HPV9 2019-05-16 Completed University of 00:00:00 [facility] TDAP (ADACEL) 2019-03-07 Completed University of VACCINE 00:00:00 [facility] TDAP (ADACEL) 2019-03-07 Completed University of VACCINE 00:00:00 [facility] TDAP (ADACEL) 2019-03-07 Completed University of VACCINE 00:00:00 [facility] TDAP (ADACEL) 2019-03-07 Completed University of VACCINE 00:00:00 [place] [facility] TDAP (ADACEL) 2019-03-07 Completed University of VACCINE 00:00:00 [facility] TDAP (ADACEL) 2019-03-07 Completed University of VACCINE 00:00:00 [facility] TDAP (ADACEL) 2019-03-07 Completed University of VACCINE 00:00:00 [facility] TDAP (ADACEL) 2019-03-07 Completed University of VACCINE 00:00:00 [facility] Influenza Virus 2018-11-10 Completed Universit y of Vaccine Quad .5 mL 00:00:00 [place] [facility] IM 6+ MO Branch Influenza Virus 2018-11-10 Completed Universit y of Vaccine Quad .5 mL 00:00:00 [place] [facility] IM 6+ MO Branch Influenza Virus 2018-11-10 Completed Universit y of Vaccine Quad .5 mL 00:00:00 [facility] 6+ MO Branch Influenza Virus 2018-11-10 Completed Universit y of Vaccine Quad .5 mL 00:00:00 [facility] 6+ MO Branch Influenza Virus 2018-11-10 Completed Universit y of Vaccine Quad .5 mL 00:00:00 [facility] 6+ MO Branch Influenza Virus 2018-11-10 Completed Universit y of Vaccine Quad .5 mL 00:00:00 [facility] 6+ MO Branch Influenza Virus 2018-11-10 Completed Universit y of Vaccine Quad .5 mL 00:00:00 [facility] 6+ MO Branch Influenza Virus 2018-11-10 Completed Universit y of Vaccine Quad .5 mL 00:00:00 [facility] 6+ MO Branch HPV 2015-04-17 Completed University of 00:00:00 [facility] HPV 2015-04-17 Completed University of 00:00:00 [facility] HPV 2015-04-17 Completed University of 00:00:00 [facility] HPV 2015-04-17 Completed University of 00:00:00 [facility] HPV 2015-04-17 Completed University of 00:00:00 [facility] HPV 2015-04-17 Completed University of 00:00:00 [facility] HPV 2015-04-17 Completed University of 00:00:00 [facility] HPV 2015-04-17 Completed University of 00:00:00 [facility] Vital Signs Vital Name Observation Time Observation Value Comments Source Systolic blood 2022-09-02 15:22:00 117 mm[Hg] Univer sity of pressure [facility] Diastolic blood 2022-09-02 15:22:00 77 mm[Hg] Unive rsity of pressure [facility] Heart rate 2022-09-02 15:22:00 63 /min [facility] Body temperature 2022-09-02 15:22:00 36.17 [facility] 2022-09-02 15:22:00 20 /min [facility] Body height 2022-09-02 15:22:00 144.8 cm [facility] Body weight 2022-09-02 15:22:00 64.774 kg [facility] BMI 2022-09-02 15:22:00 30.90 kg/m2 [facility] Procedures This patient has no known procedures. Encounters Start End Encounter Admission Attending Care Care Encounter Source Date/Time Date/Time Type Type Clinicians Facility Department ID 2023-03-20 2023-03-20 Outpatient R [facility] [id number] Univers 14:00:00 14:00:00 KATIE leon f [facility] 2023-02-06 2023-02-06 Outpatient SFA [facility] [id number] [place] 17:09:18 17:09:18 [id number] F [place] 2022-09-03 2022-09-03 Telephone [facility] [id number] [facility] 00:00:00 00:00:00 Katie Woodruff WET PAN OPERATOR [id number] ity [facility] [id number] [place] as MATERNAL [id number] [facility] & CHILD [address] [place] [address] 2022-09-02 2022-09-02 Outpatient R AKINSIPE, [facility] [id number] Univers 09:15:00 10:00:59 KATIE hernandez o f [facility] 2022-09-02 2022-09-02 Office [facility] [id number] [facility] 09:15:00 10:00:59 Visit Katie Woodruff WET PAN OPERATOR [id number] ity [facility] [id number] [place] MATERNAL [id number] [facility] & CHILD [address] [place] [address] 2022-07-31 2022-07-31 Outpatient R ROGERS, [facility] [id number] Univers 09:45:00 09:45:00 MALA ity [facility] 2022-06-06 2022-06-06 Outpatient R AKINSIPE, [facility] [id number] Univers 13:30:00 13:30:00 KATIE ity o f [facility] 2022-06-02 2022-06-02 Outpatient R AKINSIPE, [facility] [id number] Univers 08:15:00 08:15:00 KATIE ity o f [facility] 2022-05-14 2022-05-14 Refill [facility] [id number] Univers 00:00:00 00:00:00 Katie C WET PAN OPERATOR [id number] ity of REGIONAL [id number] [place] MATERNAL [id number] [facility] ical & CHILD [address] [place] [address] 2022-05-01 2022-05-01 Outpatient R [facility] [id number] Univers 13:45:00 13:45:00 ity [facility] 2022-05-01 2022-05-01 Telephone [facility] [id number] Univers 00:00:00 00:00:00 Katie C WET PAN OPERATOR [id number] ity of REGIONAL [id number] [place] as MATERNAL [id number] [facility] & CHILD [address] [place] [address] 2022-04-30 2022-04-30 [facility] [id number] Univers 00:00:00 00:00:00 Katie C WET PAN OPERATOR [id number] ity of REGIONAL [id number] [place] MATERNAL [id number] [facility] & CHILD [address] [place] [address] 2022-04-10 2022-04-10 [facility] [id number] Univers 00:00:00 00:00:00 Katie C WET PAN OPERATOR [id number] ity of REGIONAL [id number] [place] MATERNAL [id number] [facility] & CHILD [address] [place] [address] 2022-03-21 2022-03-21 Telephone [facility] [id number] Univers 00:00:00 00:00:00 Katie C WET PAN OPERATOR [id number] ity of REGIONAL [id number] [place] MATERNAL [id number] [facility] CHILD [address] [place] [address] 2022-03-21 2022-03-21 Telephone [facility] [id number] Univers 00:00:00 00:00:00 Katie C WET PAN OPERATOR [id number] ity of [facility] [id number] [place] as MATERNAL [id number] [address] 2022-03-19 2022-03-19 Outpatient R AKINBANNER [id number] Univers 08:15:00 09:30:09 KATIE ity o f [facility] 2022-03-19 2022-03-19 Office [facility] [id number] Univers 08:15:00 09:30:09 Visit Katie C WET PAN OPERATOR [id number] ity of [facility] [id number] [place] MATERNAL [id number] [address] 2022-03-19 2022-03-19 Outpatient R AKINBANNER [id number] Univers 08:15:00 08:15:00 KATIE ity o f [facility] 2022-03-19 2022-03-19 Orders Doctor DOLAN [id number] Univers 00:00:00 00:00:00 Only Unassigned, BRETT [id number] ity of [place] [facility] [id number] [place] as [id number] [address] 2021-09-17 2021-09-17 JOSEFINA Schuler [id number] Univers 00:00:00 00:00:00 Management Naa O[place]LEY [id number] [place] [id number] Ade ceron [id number] [place] [id number] Branch 2021-04-08 2021-04-08 Outpatient R SUDARSHAN, [facility] [id number] Univers 15:00:00 15:00:00 CHALO hernandez [facility] 2021-03-04 2021-03-04 Outpatient R RADHA, [facility] [id number] Univers 15:00:00 15:00:00 VICTORIA ity o [facility] 2020-10-11 2020-10-11 Outpatient R AKINSIPE, [facility] [id number] Univers 15:15:00 15:15:00 KATIE ity o [facility] 2020-09-11 2020-09-11 Outpatient R AKINSIPE, [facility] [id number] Univers 15:00:00 15:00:00 KATIE ity o f [facility] 2020-07-11 2020-07-11 Outpatient R AKINSIPE, [facility] [id number] Univers 16:00:00 16:00:00 KATIE ity o f [facility] 2020-07-10 2020-07-10 Outpatient R AKINSIPE, [facility] [id number] Univers 15:00:00 15:00:00 KATIE ity o [facility] 2020-06-20 2020-06-20 Outpatient R AKINSIPE, [facility] [id number] Univers 08:15:00 08:15:00 KATIE ity o f [facility] 2020-01-24 2020-01-24 Outpatient R AKINSIPE, [facility] [id number] Univers 15:30:00 15:30:00 KATIE ity o [facility] Results This patient has no known results.
[2023-02-07] MEDS ORDERED: KETOROLAC 30 MG/ML INJ ONE (01:55)
[2023-02-07] MEDS ORDERED: DIPHENHYDRAMINE 50 MG/ML VIAL ONE (01:55)
[2023-02-07] MEDS ORDERED: METOCLOPRAMIDE 10 MG/2mL INJ ONE (01:55)
[2023-02-07] MEDS ORDERED: NA CHLORIDE 0.9% 1,000 ML ONE (01:55)
[2023-02-07 02:08] LABS: Lymphocytes % 39.7 % (15.3-44.8); MCV 85.8 fL (80-100); MPV 6.8 fL (7.6-11.3); RBC Red Blood Cell Count 4.67 M/uL (3.86-4.86)
[2023-02-07 02:22] LABS: Specific Gravity 1.031 (1.005-1.030)
[2023-02-07 02:22] LABS: SARS-CoV-2 Antigen Rapid Res Negative (Negative)
[2023-02-07 02:32] LABS: Albumin 4.5 g/dL (3.4-5.0); Bilirubin Direct 0.1 mg/dL (0-0.2); Bilirubin Indirect, Calculated 0.4 mg/dL (0.2-0.8); Bilirubin Total 0.5 mg/dL (0.2-1.0); Potassium 3.2 mEq/L (3.5-5.1); Troponin High Sensitivity 3.1 pg/mL (<58.9)
--- NOTE | 2023-02-07 02:32 | ER ---
Nurse's Notes [facility] Name: Erna Villeda Age: 22 yrs Sex: Female : 2000 Arrival Date: 02/07/2023 Time: 00:52 Bed 4 Private MD: Diagnosis: Syncope Near;Headache;Other specified noninfective gastroenteritis and colitis Presentation: 02/07 01:11 Chief complaint: Patient states: "I've been passing out, having headaches, and my heart as6 has been beating fast". Coronavirus screen: At this time, the client does not indicate any symptoms associated with coronavirus-19. Ebola Screen: No symptoms or risks identified at this time. Initial Sepsis Screen: Does the patient meet any 2 criteria? No. Patient's initial sepsis screen is negative. Does the patient have a suspected source of infection? No. Patient's initial sepsis screen is negative. Risk Assessment: Do you want to hurt yourself or someone else? Patient reports no desire to harm self or others. Onset of symptoms was February 04, 2023. 01:11 Method Of Arrival: Ambulatory as6 01:11 Acuity: SIVA 3 as6 Triage Assessment: 02:39 Headache History: The patient has had previous headaches. General: Appears in no kl apparent distress. Pain: Pain began gradually, Also complains of nausea. Historical: - Allergies: 01:14 No Known Allergies; as6 - Home Meds: 01:14 None [Active]; as6 - PMHx: 01:14 None; as6 - PSHx: 01:14 None; as6 - Immunization history:: Client reports receiving the 2nd dose of the Covid vaccine. - Social history:: Smoking status: Patient denies any tobacco usage or history of. - Family history:: not pertinent. Screenin:04 [facility] ED Fall Risk Assessment (Adult) History of falling in the last 3 months, kl including since admission No falls in past 3 months (0 pts) Confusion or Disorientation No (0 pts) Intoxicated or Sedated No (0 pts) Impaired Gait No (0 pts) Mobility Assist Device Used No (0 pt) Altered Elimination No (0 pt) Score/Fall Risk Level 0 - 2 = Low Risk Oriented to surroundings, Maintained a safe environment. Abuse screen: Denies threats or abuse. Nutritional screening: No deficits noted. Tuberculosis screening: No symptoms or risk factors identified. Assessment: 01:45 General: Appears in no apparent distress. comfortable, Behavior is calm, cooperative. kl Pain: Complains of pain in top of head and forehead Pain currently is 5 out of 10 on a pain scale. Quality of pain is described as aching, dull. Neuro: No deficits noted. Level of Consciousness is awake, alert, obeys commands, Oriented to person, place, time, situation, Gas Meter Repairer are equal bilaterally Moves all extremities. Full function Gait is steady, Speech is normal, Facial symmetry appears normal, Pupils are PERRLA. Cardiovascular: No deficits noted. Respiratory: No deficits noted. GI: No deficits noted. No signs and/or symptoms were reported involving the gastrointestinal system. : No deficits noted. No signs and/or symptoms were reported regarding the genitourinary system. EENT: Reports pain. Vital Signs: 01:11 BP 115 / 86; Pulse 89; Resp 18 S; Temp 98.1(TE); Pulse Ox 100% on R/A; Weight 58.06 kg as6 (R); Height 4 ft. 9 in. ; Pain 5/10; 02:04 BP 120 / 93; Pulse 105; Resp 16; Pulse Ox 100% on R/A; kl 02:38 BP 127 / 89; Pulse 92; Resp 18; Pulse Ox 99% ; kl 01:11 Body Mass Index 27.70 (58.06 kg, 144.78 cm) as6 01:11 Pain Scale: Adult as6 [place] Coma Score: 02:30 Eye Response: spontaneous(4). Motor Response: obeys commands(6). Verbal Response: sp4 oriented(5). Total: 15. ED Course: 00:55 Patient arrived in ED. ag3 01:14 Josue Marino MD is Attending Physician. sp4 01:14 Triage completed. as6 01:15 Arm band placed on. as6 01:50 Inserted saline lock: 20 gauge in right antecubital area, using aseptic technique. Blood collected. 02:04 Patient has correct armband on for positive identification. Bed in low position. Call kl light in reach. Side rails up X2. 02:08 Basic Metabolic Panel Sent. kl 02:08 CBC with Diff Sent. kl 02:08 LFT's Sent. kl 02:08 NT PRO-BNP Sent. kl 02:08 Troponin HS Sent. kl 02:08 Influenza Screen (a \\T\\ B) Sent. kl 02:08 SARS RAPID Sent. kl 02:08 Urinalysis W/Microscopic Sent. kl 02:08 Test, Urine Sent. kl 02:38 No provider procedures requiring assistance completed. IV discontinued, intact, kl bleeding controlled, No redness/swelling at site. Pressure dressing applied. Administered Medications: 01:55 Drug: diphenhydrAMINE IVP 25 mg Route: IVP; Site: right antecubital; kl 02:38 Follow up: Response: No adverse reaction; Marked relief of symptoms kl 01:57 Drug: metoCLOPramide IVP 10 mg Route: IVP; Site: right antecubital; kl 02:39 Follow up: Response: No adverse reaction; Marked relief of symptoms kl 02:08 Drug: NS 0.9% IV 1000 ml Route: IV; Rate: 1 bolus; Site: right antecubital; kl 02:08 Drug: Ketorolac IVP 30 mg Route: IVP; Site: right antecubital; kl 02:39 Follow up: Response: No adverse reaction; Marked relief of symptoms kl Medication: 02:40 VIS not applicable for this client. kl Outcome: 02:31 Discharge ordered by . sp4 02:39 Discharged to home ambulatory, with family. kl 02:39 Condition: improved 02:39 Discharge instructions given to patient, Instructed on discharge instructions, follow up and referral plans. medication usage, Demonstrated understanding of instructions, follow-up care, medications, Prescriptions given X 3. 02:40 Patient left the ED. kl Signatures: Lucia Corona RN [place] Ashby, RN RN as6 Josue Marino MD MD sp4
--- NOTE | 2023-02-07 02:32 | EDPHYS ---
Physician Documentation [facility] Name: Erna Villeda Age: 22 yrs Sex: Female : 2000 Arrival Date: 02/07/2023 Time: 00:52 Bed 4 Private MD: ED Physician Josue Marino HPI: 02/07 01:14 This 22 yrs old Female presents to ER via Unassigned with complaints of sp4 Headache, Syncope. 02:26 Very pleasant 22-year-old female presents with acute onset of dizziness, headache, sp4 nausea, diarrhea, nonbloody diarrhea also dyspnea elevated heart rate and feeling unwell starting yesterday morning. 02:27 Patient reported to triage nurse she has been passing out but she has denied actual sp4 syncope at home reported near passing out episode. . Historical: - Allergies: 01:14 No Known Allergies; as6 - Home Meds: 01:14 None [Active]; as6 - PMHx: 01:14 None; as6 - PSHx: 01:14 None; as6 - Immunization history:: Client reports receiving the 2nd dose of the Covid vaccine. - Social history:: Smoking status: Patient denies any tobacco usage or history of. - Family history:: not pertinent. ROS: 02:27 Constitutional: Negative for fever, chills, and weight loss, positive generalized sp4 weakness, dizziness, headache, nausea, diarrhea, dyspnea, rapid heart rate. Also positive for near syncope Eyes: Negative for injury, pain, redness, and discharge, ENT: Negative for injury, pain, and discharge, Neck: Negative for injury, pain, and swelling, Cardiovascular: Negative for chest pain, palpitations, and edema, positive for rapid heart rate Respiratory: Negative for cough, wheezing, and pleuritic chest pain, positive shortness of breath Abdomen/GI: Negative for abdominal pain, and constipation, positive nausea vomiting diarrhea Back: Negative for injury and pain, : Negative for injury, bleeding, discharge, and swelling, MS/Extremity: Negative for injury and deformity, Skin: Negative for injury, rash, and discoloration, Neuro: Negative for weakness, numbness, tingling, and seizure, positive headache Psych: Negative for depression, anxiety, Allergy/Immunology: Negative for hives, rash, and allergies Endocrine: Negative for neck swelling, polydipsia, polyuria, polyphagia, and weight changes Hematologic/Lymphatic: Negative for swollen nodes, abnormal bleeding, and unusual bruising Exam: 02:27 Constitutional: This is a well developed, well nourished patient who is awake, alert, sp4 and in no acute distress. Head/Face: Normocephalic, atraumatic. Eyes: Pupils equal round and reactive to light, extra-ocular motions intact. Lids and lashes normal. Conjunctiva and sclera are not injected. Cornea within normal limits. Periorbital areas with no swelling, redness, or edema. ENT: Nares patent. No nasal discharge, no septal abnormalities noted. Tympanic membranes are normal and external auditory canals are clear. Oropharynx with no redness, swelling, or masses, exudates, or evidence of obstruction, uvula midline. Mucous membranes moist. Neck: Trachea midline, no thyromegaly or masses palpated, and no cervical lymphadenopathy. Supple, full range of motion without nuchal rigidity, or vertebral point tenderness. Chest/axilla: Normal chest wall appearance and motion. Nontender with no deformity. No lesions are appreciated. Cardiovascular: Regular rate and rhythm with a normal S1 and S2. No gallops, murmurs, or rubs. Normal PMI, no JVD. No pulse deficits. Respiratory: Lungs have equal breath sounds bilaterally, clear to auscultation and percussion. No rales, rhonchi or wheezes noted. No increased work of breathing, no retractions or nasal flaring. Abdomen/GI: Soft, non-tender, with normal bowel sounds. No distension or tympany. No guarding or rebound. No evidence of tenderness throughout. Back: No spinal tenderness. No costovertebral tenderness. Skin: Warm, dry with normal turgor. Normal color with no rashes, no lesions, and no evidence of cellulitis. MS/ Extremity: Pulses equal, no cyanosis. Neurovascular intact. Full, normal range of motion. Neuro: Awake and alert, GCS 15, oriented to person, place, time, and situation. Cranial nerves II-XII grossly intact. Motor strength 5/5 in all extremities. Sensory grossly intact. Psych: Awake, alert, with orientation to person, place and time. Behavior, mood, and affect are within normal limits 02:27 ECG was reviewed by the Attending Physician. EKG 0 156, reveals normal sinus rhythm at the rate of 74. Right axis, otherwise negative again Vital Signs: 01:11 BP 115 / 86; Pulse 89; Resp 18 S; Temp 98.1(TE); Pulse Ox 100% on R/A; Weight 58.06 kg as6 (R); Height 4 ft. 9 in. ; Pain 5/10; 02:04 BP 120 / 93; Pulse 105; Resp 16; Pulse Ox 100% on R/A; kl 02:38 BP 127 / 89; Pulse 92; Resp 18; Pulse Ox 99% ; kl 01:11 Body Mass Index 27.70 (58.06 kg, 144.78 cm) as6 01:11 Pain Scale: Adult as6 Kapil Coma Score: 02:30 Eye Response: spontaneous(4). Motor Response: obeys commands(6). Verbal Response: sp4 oriented(5). Total: 15. MDM: 01:15 Patient medically screened. sp4 02:30 Differential diagnosis: migraine, sinusitis, tension headache, vasomotor headache. Data sp4 reviewed: vital signs, nurses notes, lab test result(s), EKG. ED course: CBC is normal at this time, mildly elevated platelets, test negative, COVID test negative, EKG normal, patient reported she would like to go home at this time without finishing her work-up. Will prescribe Fioricet for headache, nausea Zofran, and also Lomotil for diarrhea.. 02/07 01:15 Order name: Test, Urine; Complete Time: 02: 4 02/07 01:15 Order name: Urinalysis W/Microscopic 4 02/07 01:26 Order name: SARS RAPID; Complete Time: 02:4 02/07 01:26 Order name: Influenza Screen (a \T\ B); Complete Time: 02: 4 02/07 01:27 Order name: Basic Metabolic Panel; Complete Time: 4 02/07 01:27 Order name: CBC with Diff; Complete Time: 02: sp4 02/07 01:27 Order name: LFT's; Complete Time: 02: 4 02/07 01:27 Order name: NT PRO-BNP; Complete Time: 4 02/07 01:27 Order name: Troponin HS; Complete Time: :34 sp4 02/07 01:27 Order name: EKG; Complete Time: 01:27 sp4 02/07 01:27 Order name: Cardiac monitoring; Complete Time: 02:08 sp4 02/07 01:27 Order name: EKG - Nurse/Tech; Complete Time: 02:08 sp4 02/07 01:27 Order name: IV Saline Lock; Complete Time: 02:08 sp4 02/07 01:27 Order name: Labs collected and sent; Complete Time: 02: sp4 02/07 01:27 Order name: O2 Per Protocol; Complete Time: 02:08 sp4 02/07 01:27 Order name: O2 Sat Monitoring; Complete Time: 02:08 4 EC:27 Rate is 74 beats/min. Rhythm is regular, Normal Sinus Rhythm. MN interval is normal. sp4 QRS interval is normal. QT interval is normal. T waves are Normal. No ST changes noted. Clinical impression: Normal ECG. Interpreted by me. Administered Medications: 01:55 Drug: diphenhydrAMINE IVP 25 mg Route: IVP; Site: right antecubital; kl 02:38 Follow up: Response: No adverse reaction; Marked relief of symptoms kl 01:57 Drug: metoCLOPramide IVP 10 mg Route: IVP; Site: right antecubital; kl 02:39 Follow up: Response: No adverse reaction; Marked relief of symptoms kl 02:08 Drug: NS 0.9% IV 1000 ml Route: IV; Rate: 1 bolus; Site: right antecubital; kl 02:08 Drug: Ketorolac IVP 30 mg Route: IVP; Site: right antecubital; kl 02:39 Follow up: Response: No adverse reaction; Marked relief of symptoms kl Disposition Summary: 02/07/23 02:31 Discharge Ordered Location: Home sp4 Problem: new sp4 Symptoms: have improved sp4 Condition: Stable sp4 Diagnosis - Syncope Near sp4 - Headache sp4 - Other specified noninfective gastroenteritis and colitis sp4 Followup: sp4 - With: Private Physician - When: 7 - 10 days - Reason: Recheck today's complaints Discharge Instructions: - Discharge Summary Sheet sp4 - Viral Gastroenteritis, Adult, [id number] sp4 Prescriptions: - Fioricet 50-300-40 mg Oral capsule - take 2 capsule by ORAL route every 6 hours as needed for pain;; 20 capsule; sp4 Refills: 0, Product Selection Permitted - ondansetron 4 mg Oral Tablet,disintegrating - take 1 tablet by ORAL route every 6 hours PRN nausea; 20 tablet; Refills: 0, sp4 Product Selection Permitted - Lomotil 2.5-0.025 mg Oral Tablet - take 1 tablet by ORAL route every 6 hours As needed PRN diarrhea; 20 tablet; sp4 Refills: 0, Product Selection Permitted Signatures: Dispatcher [employer] Lucia Horvath, RN Maury Medellin RN RN as6 Josue Marino MD MD sp4
[2023-02-07 02:40] LABS: Specific Gravity > 1.030 (1.005-1.030); Urine Bacteria <20 /HPF (<20); Urine Bilirubin NEGATIVE (Negative); Urine Blood 2+ (Negative); Urine Clarity Extremely Turbid (Clear); Urine Color Yellow (Yellow); Urine Glucose NEGATIVE (Negative); Urine Mucus 4+ /HPF (None Seen); Urine Protein 1+ (Negative); Urine Urobilinogen 2+ (Normal); Urine pH 6.5 (5.0-7.0)
[2023-02-07 03:09] VITALS: TEMP 98.1
[2023-02-07 03:11] VITALS: BP 127/89; O2SAT 99
--- NOTE | 2023-02-09 17:55 | EKG ---
Test Date: 2023-02-07 Test Time: 01:56:38 Business Relationship Manager: LAVINIA MEASUREMENT RESULTS: Intervals: Rate: 74 MT: 122 QRSD: 82 QT: 372 QTc: 412 [place]: P: 65 MT: 122 QRS: 100 T: 56 INTERPRETIVE STATEMENTS: Normal sinus rhythm Rightward axis Borderline ECG No previous ECG available for comparison Electronically Signed On 02-09-23 17:50:51 CDT by Hari Patel
== END 2023-02-07 02:40 | disposition home or self-care (01) ==
LOC: ER 00:52
DX: R51.9 Headache, unspecified (principal); K52.89 Other specified noninfective gastroenteritis and colitis; Z20.822 Contact with and (suspected) exposure to COVID-19
CPT/HCPCS: 93005; 87088; 85025; 81001; 87086; 80048; 36415; 81025; 80076; 84484; 83880; 87804 ×2; 96375; 96374; 99284; 87811; J2765; J1200; J7030

== ENCOUNTER → 2023-09-03 | Emergency (ER) | payer OTHER, SELFPAY ==
--- OUTSIDE RECORDS SUMMARY | 2023-09-03 12:12 | XMS REPORT | Continuity of Care Document ---
Author Name Unknown Address [address] [facility] th[address] Address [address] [facility] [place] [address] Care Team Providers Care Manager Hi Name Role Phone KATIE REYES Primary Care Physician Jenniferv ailKATIE Lopez Attending Clinician ETHEL Willingham Attending Clinician ETHEL Barriga Attending Clinician Taniaa daniel OBI-JEF SAMPSON Attending Clinician Unavailab le OBI-JEF SAMPSON Attending Clinician Unavail le Doctor Unassigned, [place] Attending Clinician U navailKatie Lim Attending Clinician + MALA MCCLOUD Attending Clinician Esa Fong LMSWNaa Attending Clinician CHALO Bullock Attending Clinician VICTORIA Anderson Attending Clinician Unavailangélica e Payers Payer Name Policy Type Policy Number Effective Date Expirati on Date Source [facility] [id number] 2022 00:00:00 2078 00:00:00 Problems Condition Name Condition Details Condition Category Status Onset Date Resolution Date Last Treatment Date Treating Clinician Comments Source Vitamin D deficiency Vitamin D deficiency Disease Active 03-05 00:00: 00 [facility] Anxiety and depression Anxiety and depression Disease Active 03-05 00:00: 00 [facility] Irritabili ty and anger Irritabili ty and anger Disease Active 03-05 00:00: 00 [facility] Obesity (BMI 30-39.9) Obesity (BMI 30-39.9) Disease Active 03-05 00:00: 00 [facility] Ingrown hair Ingrown hair Disease Active 09-19 00:00: 00 [facility] Other general counseling and advice for contracept nancie management Other general counseling and advice for contracept nancie management Disease Active 2018-08 00:00: 00 [facility] Allergies, Adverse Reactions, Alerts Allergy Name Allergy Type Status Severity Reaction(s) Onset Date Inactive Date Treating Clinician Comments Source NO KNOWN ALLERGIE S Drug Class Active [facility] Social History Social Habit Start Date Stop Date Quantity Comments Source Gender identity [facility] Sexual orientation U [facility] History SDOH Alcohol Frequency [facility] History SDOH Alcohol Std Drinks [facility] History SDOH Alcohol Binge [facility] History of Social function 2023-04-29 00:00:00 2023-04-29 00:00:00 [facility] Exposure to SARS-CoV-2 (event) 2022-08-23 00:00:00 2022-09-02 09:26:00 Not sure [facility] Alcohol intake 2022-03-19 00:00:00 2022-03-19 00:00:00 Current drinker of alcohol (finding) [facility] Alcohol Comment 2021-03-04 00:00:00 2021-03-04 00:00:00 occassional/rare [facility] Tobacco use and exposure 2018-11-10 00:00:00 2018-11-10 00:00:00 Smokeless tobacco non-user [facility] Sex Assigned At 2000 00:00:00 2000 00:00:00 [facility] Smoking Status Start Date Stop Date Source Never smoked tobacco [facility] Medications Ordered Medication Name Filled Medication Name Start Date Stop Date Current Medication? Ordering Clinician Indication Dosage Frequency Signature (SIG) Comments Components Source SERTraline 25 mg tablet 04-29 00:00: 00 Yes [id number] 25mg Take 1 tablet by mouth in the morning. [facility] SERTraline 25 mg tablet 04-29 00:00: 00 Yes [id number] 25mg Take 1 tablet by mouth in the morning. [facility] levonorgest rel-ethinyl estradiol (SRONYX) 0.1-20 mg-mcg per tablet 05-19 00:00: 00 Yes [id number] 1{tbl} Take 1 tablet by mouth in the morning. [facility] levonorgest rel-ethinyl estradiol (SRONYX) 0.1-20 mg-mcg per tablet 05-19 00:00: 00 Yes [id number] 1{tbl} Take 1 tablet by mouth in the morning. [facility] levonorgest rel-ethinyl estradiol (SRONYX) 0.1-20 mg-mcg per tablet 05-19 00:00: 00 Yes [id number] 1{tbl} Take 1 tablet by mouth in the morning. [facility] levonorgest rel-ethinyl estradiol (SRONYX) 0.1-20 mg-mcg per tablet 05-19 00:00: 00 Yes [id number] 1{tbl} Take 1 tablet by mouth in the morning. [facility] levonorgest rel-ethinyl estradiol (SRONYX) 0.1-20 mg-mcg per tablet 05-19 00:00: 00 Yes [id number] 1{tbl} Take 1 tablet by mouth in the morning. [facility] levonorgest rel-ethinyl estradiol (SRONYX) 0.1-20 mg-mcg per tablet 05-19 00:00: 00 Yes [id number] 1{tbl} Take 1 tablet by mouth in the morning. [facility] levonorgest rel-ethinyl estradiol (SRONYX) 0.1-20 mg-mcg per tablet 05-19 00:00: 00 Yes [id number] 1{tbl} Take 1 tablet by mouth in the morning. [facility] levonorgest rel-ethinyl estradiol (SRONYX) 0.1-20 mg-mcg per tablet 05-19 00:00: 00 Yes [id number] 1{tbl} Take 1 tablet by mouth in the morning. [facility] azithromyci n 500 mg tablet 03-21 00:00: 00 03-22 04:59 :00 No [id number] 1000mg Take 2 tablets by mouth once now for 1 dose. [facility] levonorgest rel-ethinyl estradiol (SRONYX) 0.1-20 mg-mcg per tablet 03-19 00:00: 00 Yes [id number] 1{tbl} Take 1 tablet by mouth in the morning. [facility] levonorgest rel-ethinyl estradiol (SRONYX) 0.1-20 mg-mcg per tablet 03-19 00:00: 00 Yes [id number] 1{tbl} Take 1 tablet by mouth in the morning. [facility] levonorgest rel-ethinyl estradiol (SRONYX) 0.1-20 mg-mcg per tablet 03-19 00:00: 00 Yes [id number] 1{tbl} Take 1 tablet by mouth in the morning. [facility] levonorgest rel-ethinyl estradiol (SRONYX) 0.1-20 mg-mcg per tablet 03-19 00:00: 00 Yes [id number] 1{tbl} Take 1 tablet by mouth in the morning. [facility] levonorgest rel-ethinyl estradiol (SRONYX) 0.1-20 mg-mcg per tablet 03-19 00:00: 00 05-14 00:00 :00 No [id number] 1{tbl} Take 1 tablet by mouth in the morning. [facility] Immunizations Ordered Immunization Name Filled Immunization Name Date Status Comments Source Influenza Virus Vaccine Quad .5 mL IM 6+ MO 2020-07-11 00:00:00 Completed [facility] Influenza Virus Vaccine Quad .5 mL IM 6+ MO 2020-07-11 00:00:00 Completed [facility] Influenza Virus Vaccine Quad .5 mL IM 6+ MO 2020-07-11 00:00:00 Completed [facility] Influenza Virus Vaccine Quad .5 mL IM 6+ MO 2020-07-11 00:00:00 Completed [facility] Influenza Virus Vaccine Quad .5 mL IM 6+ MO 2020-07-11 00:00:00 Completed [facility] Influenza Virus Vaccine Quad .5 mL IM 6+ MO 2020-07-11 00:00:00 Completed [facility] Influenza Virus Vaccine Quad .5 mL IM 6+ MO 2020-07-11 00:00:00 Completed [facility] Influenza Virus Vaccine Quad .5 mL IM 6+ MO 2020-07-11 00:00:00 Completed [facility] Influenza Virus Vaccine Quad .5 mL IM 6+ MO (FLUZONE/FLULAVAL/F LUARIX) 2020-07-11 00:00:00 Completed [facility] Influenza Virus Vaccine Quad .5 mL IM 6+ MO (FLUZONE/FLULAVAL/F LUARIX) 2020-07-11 00:00:00 Completed [facility] Influenza Virus Vaccine Quad .5 mL IM 6+ MO (FLUZONE/FLULAVAL/F LUARIX) 2020-07-11 00:00:00 Completed [facility] HPV9 2019-05-16 00:00:00 Completed [facility] HPV9 2019-05-16 00:00:00 Completed [facility] HPV9 2019-05-16 00:00:00 Completed [facility] HPV9 2019-05-16 00:00:00 Completed [facility] HPV9 2019-05-16 00:00:00 Completed [facility] HPV9 2019-05-16 00:00:00 Completed [facility] HPV9 2019-05-16 00:00:00 Completed [facility] HPV9 2019-05-16 00:00:00 Completed [facility] HPV9 2019-05-16 00:00:00 Completed [facility] HPV9 2019-05-16 00:00:00 Completed [facility] HPV9 2019-05-16 00:00:00 Completed [facility] TDAP (ADACEL) VACCINE 2019-03-07 00:00:00 Completed [facility] TDAP (ADACEL) VACCINE 2019-03-07 00:00:00 Completed [facility] TDAP (ADACEL) VACCINE 2019-03-07 00:00:00 Completed [facility] TDAP (ADACEL) VACCINE 2019-03-07 00:00:00 Completed [facility] TDAP (ADACEL) VACCINE 2019-03-07 00:00:00 Completed [facility] TDAP (ADACEL) VACCINE 2019-03-07 00:00:00 Completed [facility] TDAP (ADACEL) VACCINE 2019-03-07 00:00:00 Completed [facility] TDAP (ADACEL) VACCINE 2019-03-07 00:00:00 Completed [facility] TDAP (ADACEL) VACCINE 2019-03-07 00:00:00 Completed [facility] TDAP (ADACEL) VACCINE 2019-03-07 00:00:00 Completed [facility] TDAP (ADACEL) VACCINE 2019-03-07 00:00:00 Completed [facility] Influenza Virus Vaccine Quad .5 mL IM 6+ MO 2018-11-10 00:00:00 Completed [facility] Influenza Virus Vaccine Quad .5 mL IM 6+ MO 2018-11-10 00:00:00 Completed [facility] Influenza Virus Vaccine Quad .5 mL IM 6+ MO 2018-11-10 00:00:00 Completed [facility] Influenza Virus Vaccine Quad .5 mL IM 6+ MO 2018-11-10 00:00:00 Completed [facility] Influenza Virus Vaccine Quad .5 mL IM 6+ MO 2018-11-10 00:00:00 Completed [facility] Influenza Virus Vaccine Quad .5 mL IM 6+ MO 2018-11-10 00:00:00 Completed [facility] Influenza Virus Vaccine Quad .5 mL IM 6+ MO 2018-11-10 00:00:00 Completed [facility] Influenza Virus Vaccine Quad .5 mL IM 6+ MO 2018-11-10 00:00:00 Completed [facility] Influenza Virus Vaccine Quad .5 mL IM 6+ MO (FLUZONE/FLULAVAL/F LUARIX) 2018-11-10 00:00:00 Completed [facility] Influenza Virus Vaccine Quad .5 mL IM 6+ MO (FLUZONE/FLULAVAL/F LUARIX) 2018-11-10 00:00:00 Completed [facility] Influenza Virus Vaccine Quad .5 mL IM 6+ MO (FLUZONE/FLULAVAL/F LUARIX) 2018-11-10 00:00:00 Completed [facility] HPV 2015-04-17 00:00:00 Completed [facility] HPV 2015-04-17 00:00:00 Completed [facility] HPV 2015-04-17 00:00:00 Completed [facility] HPV 2015-04-17 00:00:00 Completed [facility] HPV 2015-04-17 00:00:00 Completed [facility] HPV 2015-04-17 00:00:00 Completed [facility] HPV 2015-04-17 00:00:00 Completed [facility] HPV 2015-04-17 00:00:00 Completed [facility] HPV 2015-04-17 00:00:00 Completed [facility] HPV 2015-04-17 00:00:00 Completed [facility] HPV 2015-04-17 00:00:00 Completed [facility] Influenza Virus Vaccine Quad .5 mL IM 6+ MO (FLUZONE/FLULAVAL/F LUARIX) Unknown Completed [facility] TDAP (ADACEL) VACCINE Unknown Completed [facility] HPV Unknown Completed [facility] HPV9 Unknown Completed [facility] Influenza Virus Vaccine Quad .5 mL IM 6+ MO (FLUZONE/FLULAVAL/F LUARIX) Unknown Completed [facility] Vital Signs Vital Name Observation Time Observation Value Comments S ource Systolic blood pressure 2023-04-29 18:32:00 122 mm[Hg] [facility] Diastolic blood pressure 2023-04-29 18:32:00 77 mm[Hg] [facility] Heart rate 2023-04-29 18:32:00 77 /[facility] temperature 2023-04-29 18:32:00 36.33 Felipa [facility] Respiratory rate 2023-04-29 18:32:00 20 /min [facility] Body height 2023-04-29 18:32:00 144.8 cm [facility] Body weight 2023-04-29 18:32:00 62.143 kg [facility] BMI 2023-04-29 18:32:00 29.65 kg/m2 [facility] Oxygen saturation in Arterial blood by Pulse oximetry 2023-04-29 18:32:00 97 /min [facility] Systolic blood pressure 2022-09-02 15:22:00 117 mm[Hg] [facility] Diastolic blood pressure 2022-09-02 15:22:00 77 mm[Hg] [facility] Heart rate 2022-09-02 15:22:00 63 /min [facility] Body temperature 2022-09-02 15:22:00 36.17 Felipa [facility] Respiratory rate 2022-09-02 15:22:00 20 /min [facility] Body height 2022-09-02 15:22:00 144.8 cm [facility] Body weight 2022-09-02 15:22:00 64.774 kg [facility] BMI 2022-09-02 15:22:00 30.90 kg/m2 [facility] Procedures Procedure Date / Time Performed Performing Clinicia n Source ASSIGNMENT OF BENEFITS 2023-04-29 18:28:07 Docto r Unassigned, [place] [facility] Encounters Start Date/Time End Date/Time Encounter Type Admission Type Attending Clinicians Care Facility Care Department Encounter ID Source 2023-06-17 14:30:00 2023-06-17 14:30:00 Outpatient R KATIE REYES [facility] [id number] [facility] 2023-06-02 14:30:00 2023-06-02 14:30:00 Outpatient R ETHEL BENZ CHERYAL [facility] [id number] [facility] 2023-05-13 13:20:00 2023-05-13 13:20:00 Outpatient R SAMPSON MACIAS UZOMA [facility] [id number] [facility] 2023-04-29 15:20:00 2023-04-29 15:20:00 Outpatient R OBI-JEF , SAMPSON OBI-JEF , SAMPSON [facility] [id number] [facility] 2023-04-29 13:20:00 2023-04-29 14:00:56 Outpatient R OBI-JEF , SAMPSON OBI-JEF , SAMPSON [facility] [id number] [facility] 2023-04-29 13:20:00 2023-04-29 14:00:56 Office Visit Obi-Sampson Espinoza [facility] 1..840.114 350.1.13.10 4.2.7.2.686 [id number] [facility] 2023-04-29 00:00:00 2023-04-29 00:00:00 Orders Only Doctor Unassigned, [place] [facility] 1..840.114 350.1.13.10 4.2.7.2.686 [id number] [facility] 2023-03-20 14:00:00 2023-03-20 14:00:00 Outpatient R KATIE REYES [facility] [id number] [facility] 2023-02-06 17:09:18 2023-02-06 17:09:18 Outpatient SFA PRITESH [id number] Bhask[facility] Art [facility] 2022-09-04 00:00:00 2022-09-04 00:00:00 Patient Secure Msg Katie Reyes [facility] & [facility]ILD [facility] 1..840.114 350.1.13.10 4.2.7.2.686 [id number] [facility] 2022-09-03 00:00:00 2022-09-03 00:00:00 Telephone Katie Reyes [facility]ILD [facility] ..840.114 350.1.13.10 4.2.7.2.686 [id number] [facility] 2022-09-02 09:15:00 2022-09-02 10:00:59 Outpatient R KATIE REYES [facility] [id number] [facility] 2022-09-02 09:15:00 2022-09-02 10:00:59 Office Visit Katie Reyes [facility] [employer] [facility] & CHILD [facility] 1..840.114 350.1.13.10 4.2.7.2.686 [id number] [facility] 2022-07-31 09:45:00 2022-07-31 09:45:00 Outpatient R MALA MCCLOUD [facility] [id number] [facility] 2022-06-06 13:30:00 2022-06-06 13:30:00 Outpatient R KATIE REYES [facility] [id number] [facility] 2022-06-02 08:15:00 2022-06-02 08:15:00 Outpatient R KATIE REYES [facility] [id number] [facility] 2022-05-14 00:00:00 2022-05-14 00:00:00 Refill Katie Reyes [facility] [employer] [facility] & CHILD [facility] ..840.114 350..13.10 4.2.7.2.686 [id number] [facility] 2022-05-01 13:45:00 2022-05-01 13:45:00 Outpatient R [facility] [id number] [facility] 2022-05-01 00:00:00 2022-05-01 00:00:00 Telephone Katie Reyes [facility] [employer] [facility] CHILD [facility] 1..840.114 350.1.13.10 4.2.7.2.686 [id number] [facility] 2022-04-30 00:00:00 2022-04-30 00:00:00 Telephone Katie Reyes [employer] [facility] & CHILD [facility] 1.2.840.114 350.1.13.10 4.2.7.2.686 [id number] [facility] 2022-04-10 00:00:00 2022-04-10 00:00:00 Refill Katie Reyes [facility] [employer] [facility] CHILD [facility] 1.2.840.114 350.1.13.10 4.2.7.2.686 [id number] [facility] 2022-03-21 00:00:00 2022-03-21 00:00:00 Telephone Katie Reyes [facility] [employer] [facility] CHILD [facility] 1.2.840.114 350.1.13.10 4.2.7.2.686 [id number] [facility] 2022-03-21 00:00:00 2022-03-21 00:00:00 Telephone Katie Reyes [employer] [facility] CHILD [facility] 1.2.840.114 350.1.13.10 4.2.7.2.686 [id number] [facility] 2022-03-19 08:15:00 2022-03-19 09:30:09 Outpatient R KATIE REYES [facility] [id number] [facility] 2022-03-19 08:15:00 2022-03-19 09:30:09 Office Visit Katie Reyes [employer] [facility] & CHILD [facility] 1.2.840.114 350.1.13.10 4.2.7.2.686 [id number] [facility] 2022-03-19 08:15:00 2022-03-19 08:15:00 Outpatient R KATIE REYES [facility] [id number] [facility] 2022-03-19 00:00:00 2022-03-19 00:00:00 Orders Only Doctor Unassigned, [place] [facility] 1..840.114 350.1.13.10 4.2.7.2.686 [id number] [facility] 2021-09-17 00:00:00 2021-09-17 00:00:00 Case Management Naa Fong 1..840.114 350.1.13.10 4.2.7.2.686 [id number] [facility] 2021-04-08 15:00:00 2021-04-08 15:00:00 Outpatient R CHALO HEATON [facility] [id number] [facility] 2021-03-04 15:00:00 2021-03-04 15:00:00 Outpatient R VICTORIA GARCIA [facility] [id number] [facility] 2020-10-11 15:15:00 2020-10-11 15:15:00 Outpatient R KATIE REYES [facility] [id number] [facility] 2020-09-11 15:00:00 2020-09-11 15:00:00 Outpatient R KATIE REYES [facility] [id number] [facility] 2020-07-11 16:00:00 2020-07-11 16:00:00 Outpatient R KATIE REYES [facility] [id number] [facility] 2020-07-10 15:00:00 2020-07-10 15:00:00 Outpatient R KATIE REYES [facility] [id number] [facility] 2020-06-20 08:15:00 2020-06-20 08:15:00 Outpatient KATIE KENDALL [facility] [id number] [facility] 2020-01-24 15:30:00 2020-01-24 15:30:00 Outpatient KATIE KENDALL [facility] [id number] [facility]
--- NOTE | 2023-09-03 12:21 | ER ---
Nurse's Notes [facility] Name: Erna Villeda Age: 22 yrs Sex: Female : 2000 Arrival Date: 09/03/2023 Time: 12:09 Bed Waiting Private MD: Diagnosis: Acute tonsillitis, unspecified Presentation: 09/03 12:20 Chief complaint: Patient states: Throat pain and swelling since Thursday, denies fevers ph or other symptoms. Coronavirus screen: Vaccine status: Patient reports receiving the 1st dose of the Covid vaccine. Ebola Screen: No symptoms or risks identified at this time. Initial Sepsis Screen: Does the patient meet any 2 criteria? No. Patient's initial sepsis screen is negative. Does the patient have a suspected source of infection? No. Patient's initial sepsis screen is negative. Risk Assessment: Do you want to hurt yourself or someone else? Patient reports no desire to harm self or others. Onset of symptoms was September 03, 2023. 12:20 Method Of Arrival: Ambulatory ph 12:20 Acuity: SIAV 4 ph Triage Assessment: 12:21 General: Appears in no apparent distress. uncomfortable, well groomed, Behavior is ph calm, cooperative, appropriate for age, Denies fever. Pain: Complains of pain in throat. EENT: Throat is reddened has patchy exudate has enlarged tonsils bilaterally Reports pain when swallowing. Historical: - Allergies: 12:22 No Known Allergies; ph - Immunization history:: Adult Immunizations unknown. - Social history:: Smoking status: unknown. - Family history:: not pertinent. - Hospitalizations: : No recent hospitalization is reported. Screenin:22 [facility] ED Fall Risk Assessment (Adult) History of falling in the last 3 months, ph including since admission No falls in past 3 months (0 pts) Score/Fall Risk Level 0 - 2 = Low Risk. Abuse screen: Denies threats or abuse. Denies injuries from another. Nutritional screening: No deficits noted. Tuberculosis screening: No symptoms or risk factors identified. Vital Signs: 12:20 BP 119 / 74; Pulse 103; Resp 18; Temp 98.9; Pulse Ox 100% on R/A; Weight 55.79 kg; ph Height 4 ft. 9 in. ; 12:20 Body Mass Index 26.62 (55.79 kg, 144.78 cm) ED Course: 12:13 Patient arrived in ED. mg5 12:16 Juan Ochoa MD is Attending Physician. rn 12:21 Triage completed. ph 12:22 Arm band placed on Patient placed in waiting room. ph 12:45 Patient has correct armband on for positive identification. ph 12:45 No provider procedures requiring assistance completed. Patient did not have IV access ph during this emergency room visit. 12:46 Yeni Dunham, RN is Primary Nurse. ph Administered Medications: No medications were administered Medication: 12: VIS not applicable for this client. ph Outcome: 12: Discharge ordered by . rn 12:46 Discharged to home ambulatory, ph 12:46 Condition: good 12:46 Discharge instructions given to patient, Instructed on discharge instructions, follow up and referral plans. medication usage, Demonstrated understanding of instructions, follow-up care, medications, Prescriptions given X 1, 12:47 Patient left the ED. ph Signatures: Juan Ochoa MD MD rn Hall, Patricia, RN RN jj Hua [facility] mg5
--- NOTE | 2023-09-03 12:21 | EDPHYS ---
Physician Documentation Formerly [facility] Name: Erna Villeda Age: 22 yrs Sex: Female : 2000 Arrival Date: 09/03/2023 Time: 12:09 Bed Waiting Private MD: ED Physician Juan Ochoa HPI: 09/03 12:19 This 22 yrs old Female presents to ER via Unassigned with complaints of Sore rn Throat - Swelling. 12:19 The patient presents with sore throat. The patient describes throat pain as raw. Onset: rn The symptoms/episode began/occurred 2 day(s) ago. Severity of symptoms: At their worst the symptoms were moderate, in the emergency department the symptoms are unchanged. Modifying factors: The symptoms are alleviated by nothing, the symptoms are aggravated by swallowing. The patient has not experienced similar symptoms in the past. Historical: - Allergies: 12:22 No Known Allergies; ph - Immunization history:: Adult Immunizations unknown. - Social history:: Smoking status: unknown. - Family history:: not pertinent. - Hospitalizations: : No recent hospitalization is reported. ROS: 12:19 Constitutional: Negative for fever, chills, and weight loss, ENT: Positive for sore rn throat Cardiovascular: Negative for chest pain, palpitations, and edema, Respiratory: Negative for shortness of breath, cough, wheezing, and pleuritic chest pain, Exam: 12:19 Constitutional: This is a well developed, well nourished patient who is awake, alert, rn and in no acute distress. ENT: Positive for bilateral tonsillar hypertrophy with exudate, uvula midline, no evidence of peritonsillar abscess, no stridor Vital Signs: 12:20 BP 119 / 74; Pulse 103; Resp 18; Temp 98.9; Pulse Ox 100% on R/A; Weight 55.79 kg; ph Height 4 ft. 9 in. ; 12:20 Body Mass Index 26.62 (55.79 kg, 144.78 cm) ph MDM: 12:16 Patient medically screened. rn 12:19 Differential diagnosis: group A strep tonsillitis, laryngitis, pharyngitis, rn tonsillitis. Data reviewed: vital signs, nurses notes, and as a result, I will discharge patient. Counseling: I had a detailed discussion with the patient and/or guardian regarding the historical points, exam findings, and any diagnostic results supporting the discharge/admit diagnosis, the need for outpatient follow up, to return to the emergency department if symptoms worsen or persist or if there are any questions or concerns that arise at home. Special discussion: I discussed with the patient/guardian in detail that at this point there is no indication for admission to the hospital. It is understood, however, that if the symptoms persist or worsen the patient needs to return immediately for re-evaluation. Administered Medications: No medications were administered Disposition Summary: 09/03/23 12:21 Discharge Ordered Notes: Location: Home rn Problem: new rn Symptoms: have improved rn Condition: Stable rn Diagnosis - Acute tonsillitis, unspecified rn Followup: rn - With: Private Physician - When: As needed - Reason: Recheck today's complaints, Re-evaluation by your physician Discharge Instructions: - Discharge Summary Sheet rn - Tonsillitis rn Forms: - Medication Reconciliation Form rn - Thank You Letter rn - Antibiotic analytics intern - Prescription Opioid Use rn - Patient Portal Instructions rn - Leadership Thank You Letter rn Prescriptions: - Augmentin 875-125 mg Oral Tablet - take 1 tablet ORAL route every 12 hours for 10 days; 20 tablet; Refills: 0, rn Product Selection Permitted Signatures: Juan Ochoa MD MD rn Hall, Patricia, RN RN ph
[2023-09-03 15:19] VITALS: BP 119/74; TEMP 98.9; O2SAT 100
== END ==
LOC: ER 12:09
DX: J03.90 Acute tonsillitis, unspecified (principal)
CPT/HCPCS: 99283

== ENCOUNTER 2023-11-25 13:38 | Emergency (ER) | payer SELFPAY ==
--- OUTSIDE RECORDS SUMMARY | 2023-11-25 13:41 | XMS REPORT | Continuity of Care Document ---
Author Name Unknown Address [address] [facility] [address]. [address] th[address] Address [address] [facility] [place] [address] Care Team Providers Care Topographic Computator Name Role Phone Katie Khna Primary Care Physicia n MALA MCCLOUD Attending Clinician Esa Trevino RN, Irina Puente Attending Clinician Unav ailKATIE Lopez Attending Clinician ETHEL Willingham Attending Clinician ETHEL Barriga Attending Clinician Esa KIRKPATRICKJEFAnabella HODGEZOMA Attending Clinician Unavailab le OBI-JEFSAMPSON HODGE Attending Clinician Unavail le Doctor Unassigned, [place] Attending Clinician U navailKatie Lim Attending Clinician + Naa Fong LMSW Attending Clinician CHALO Bullock Attending Clinician VICTORIA Anderson Attending Clinician Unavailangélica rizvi Payers Payer Name Policy Type Policy Number Effective Date Expirati on Date Source [facility] [id number] 2022 00:00:00 2078 00:00:00 Problems Condition Name Condition Details Condition Category Status Onset Date Resolution Date Last Treatment Date Treating Clinician Comments Source Vitamin D deficiency Vitamin D deficiency Disease Active 03-05 00:00: 00 [facility] Anxiety and depression Anxiety and depression Disease Active 03-05 00:00: 00 [facility] Irritabili ty and anger Irritabili ty and anger Disease Active 03-05 00:00: 00 [facility] Obesity (BMI 30-39.9) Obesity (BMI 30-39.9) Disease Active 03-05 00:00: 00 [facility] Ingrown hair Ingrown hair Disease Active 09-19 00:00: 00 [facility] Other general counseling and advice for contracept nancie management Other general counseling and advice for contracept nancie management Disease Active 2018-08 00:00: 00 [facility] Allergies, Adverse Reactions, Alerts Allergy Name Allergy Type Status Severity Reaction(s) Onset Date Inactive Date Treating Clinician Comments Source NO KNOWN ALLERGIE S Drug Class Active [facility] Social History Social Habit Start Date Stop Date Quantity Comments Source Gender identity [facility] Sexual orientation U [facility] History SDOH Alcohol Frequency [facility] History SDOH Alcohol Std Drinks [facility] History SDOH Alcohol Binge [facility] History of Social function 2023-04-29 00:00:00 2023-04-29 00:00:00 [facility] Tobacco use and exposure 2023-04-29 00:00:00 2023-04-29 00:00:00 Smokeless tobacco non-user [facility] Alcohol intake 2023-04-29 00:00:00 2023-04-29 00:00:00 Current drinker of alcohol (finding) [facility] Exposure to SARS-CoV-2 (event) 2022-08-23 00:00:00 2022-09-02 09:26:00 Not sure [facility] Alcohol Comment 2021-03-04 00:00:00 2021-03-04 00:00:00 occassional/rare [facility] Sex Assigned At 2000 00:00:00 2000 00:00:00 [facility] Smoking Status Start Date Stop Date Source Never smoked tobacco [facility] Medications Ordered Medication Name Filled Medication Name Start Date Stop Date Current Medication? Ordering Clinician Indication Dosage Frequency Signature (SIG) Comments Components Source SERTraline 25 mg tablet 04-29 00:00: 00 Yes [id number] 25mg Take 1 tablet by mouth in the morning. [facility] levonorgest rel-ethinyl estradiol (SRONYX) 0.1-20 mg-mcg per tablet 05-19 00:00: 00 Yes [id number] 1{tbl} Take 1 tablet by mouth in the morning. [facility] azithromyci n 500 mg tablet 03-21 00:00: 00 03-22 04:59 :00 No [id number] 1000mg Take 2 tablets by mouth once now for 1 dose. [facility] levonorgest rel-ethinyl estradiol (SRONYX) 0.1-20 mg-mcg per tablet 03-19 00:00: 00 05-14 00:00 :00 No [id number] 1{tbl} Take 1 tablet by mouth in the morning. [facility] Immunizations Ordered Immunization Name Filled Immunization Name Date Status Comments Source Influenza Virus Vaccine Quad .5 mL IM 6+ MO 2020-07-11 00:00:00 Completed [facility] Influenza Virus Vaccine Quad .5 mL IM 6+ MO 2020-07-11 00:00:00 Completed [facility] Influenza Virus Vaccine Quad .5 mL IM 6+ MO 2020-07-11 00:00:00 Completed [facility] Influenza Virus Vaccine Quad .5 mL IM 6+ MO 2020-07-11 00:00:00 Completed [facility] Influenza Virus Vaccine Quad .5 mL IM 6+ MO 2020-07-11 00:00:00 Completed [facility] Influenza Virus Vaccine Quad .5 mL IM 6+ MO 2020-07-11 00:00:00 Completed [facility] Influenza Virus Vaccine Quad .5 mL IM 6+ MO 2020-07-11 00:00:00 Completed [facility] Influenza Virus Vaccine Quad .5 mL IM 6+ MO 2020-07-11 00:00:00 Completed [facility] Influenza Virus Vaccine Quad .5 mL IM 6+ MO (FLUZONE/FLULAVAL/F LUARIX) 2020-07-11 00:00:00 Completed [facility] Influenza Virus Vaccine Quad .5 mL IM 6+ MO (FLUZONE/FLULAVAL/F LUARIX) 2020-07-11 00:00:00 Completed [facility] Influenza Virus Vaccine Quad .5 mL IM 6+ MO (FLUZONE/FLULAVAL/F LUARIX) 2020-07-11 00:00:00 Completed [facility] HPV9 2019-05-16 00:00:00 Completed [facility] HPV9 2019-05-16 00:00:00 Completed [facility] HPV9 2019-05-16 00:00:00 Completed [facility] HPV9 2019-05-16 00:00:00 Completed [facility] HPV9 2019-05-16 00:00:00 Completed [facility] HPV9 2019-05-16 00:00:00 Completed [facility] HPV9 2019-05-16 00:00:00 Completed [facility] HPV9 2019-05-16 00:00:00 Completed [facility] HPV9 2019-05-16 00:00:00 Completed [facility] HPV9 2019-05-16 00:00:00 Completed [facility] HPV9 2019-05-16 00:00:00 Completed [facility] TDAP (ADACEL) VACCINE 2019-03-07 00:00:00 Completed [facility] TDAP (ADACEL) VACCINE 2019-03-07 00:00:00 Completed [facility] TDAP (ADACEL) VACCINE 2019-03-07 00:00:00 Completed [facility] TDAP (ADACEL) VACCINE 2019-03-07 00:00:00 Completed [facility] TDAP (ADACEL) VACCINE 2019-03-07 00:00:00 Completed [facility] TDAP (ADACEL) VACCINE 2019-03-07 00:00:00 Completed [facility] TDAP (ADACEL) VACCINE 2019-03-07 00:00:00 Completed [facility] TDAP (ADACEL) VACCINE 2019-03-07 00:00:00 Completed [facility] TDAP (ADACEL) VACCINE 2019-03-07 00:00:00 Completed [facility] TDAP (ADACEL) VACCINE 2019-03-07 00:00:00 Completed [facility] TDAP (ADACEL) VACCINE 2019-03-07 00:00:00 Completed [facility] Influenza Virus Vaccine Quad .5 mL IM 6+ MO 2018-11-10 00:00:00 Completed [facility] Influenza Virus Vaccine Quad .5 mL IM 6+ MO 2018-11-10 00:00:00 Completed [facility] Influenza Virus Vaccine Quad .5 mL IM 6+ MO 2018-11-10 00:00:00 Completed [facility] Influenza Virus Vaccine Quad .5 mL IM 6+ MO 2018-11-10 00:00:00 Completed [facility] Influenza Virus Vaccine Quad .5 mL IM 6+ MO 2018-11-10 00:00:00 Completed [facility] Influenza Virus Vaccine Quad .5 mL IM 6+ MO 2018-11-10 00:00:00 Completed [facility] Influenza Virus Vaccine Quad .5 mL IM 6+ MO 2018-11-10 00:00:00 Completed [facility] Influenza Virus Vaccine Quad .5 mL IM 6+ MO 2018-11-10 00:00:00 Completed [facility] Influenza Virus Vaccine Quad .5 mL IM 6+ MO (FLUZONE/FLULAVAL/F LUARIX) 2018-11-10 00:00:00 Completed [facility] Influenza Virus Vaccine Quad .5 mL IM 6+ MO (FLUZONE/FLULAVAL/F LUARIX) 2018-11-10 00:00:00 Completed [facility] Influenza Virus Vaccine Quad .5 mL IM 6+ MO (FLUZONE/FLULAVAL/F LUARIX) 2018-11-10 00:00:00 Completed [facility] HPV 2015-04-17 00:00:00 Completed [facility] HPV 2015-04-17 00:00:00 Completed [facility] HPV 2015-04-17 00:00:00 Completed [facility] HPV 2015-04-17 00:00:00 Completed [facility] HPV 2015-04-17 00:00:00 Completed [facility] HPV 2015-04-17 00:00:00 Completed [facility] HPV 2015-04-17 00:00:00 Completed [facility] HPV 2015-04-17 00:00:00 Completed [facility] HPV 2015-04-17 00:00:00 Completed [facility] HPV 2015-04-17 00:00:00 Completed [facility] HPV 2015-04-17 00:00:00 Completed [facility] Influenza Virus Vaccine Quad .5 mL IM 6+ MO (FLUZONE/FLULAVAL/F LUARIX) Unknown Completed [facility] TDAP (ADACEL) VACCINE Unknown Completed [facility] HPV Unknown Completed [facility] HPV9 Unknown Completed [facility] Influenza Virus Vaccine Quad .5 mL IM 6+ MO (FLUZONE/FLULAVAL/F LUARIX) Unknown Completed [facility] Influenza Virus Vaccine Quad .5 mL IM 6+ MO (FLUZONE/FLULAVAL/F LUARIX) Unknown Completed [facility] TDAP (ADACEL) VACCINE Unknown Completed [facility] HPV Unknown Completed [facility] HPV9 Unknown Completed [facility] Influenza Virus Vaccine Quad .5 mL IM 6+ MO (FLUZONE/FLULAVAL/F LUARIX) Unknown Completed [facility] Vital Signs Vital Name Observation Time Observation Value Comments S ource Systolic blood pressure 2023-04-29 18:32:00 122 mm[Hg] [facility] Diastolic blood pressure 2023-04-29 18:32:00 77 mm[Hg] [facility] Heart rate 2023-04-29 18:32:00 77 /min [facility] Body temperature 2023-04-29 18:32:00 36.33 Felipa [facility] Respiratory rate 2023-04-29 18:32:00 20 /min [facility] Body height 2023-04-29 18:32:00 144.8 cm [facility] Body weight 2023-04-29 18:32:00 62.143 kg [facility] BMI 2023-04-29 18:32:00 29.65 kg/m2 [facility] Oxygen saturation in Arterial blood by Pulse oximetry 2023-04-29 18:32:00 97 /min [facility] Systolic blood pressure 2022-09-02 15:22:00 117 mm[Hg] [facility] Diastolic blood pressure 2022-09-02 15:22:00 77 mm[Hg] [facility] Heart rate 2022-09-02 15:22:00 63 /min [facility] Body temperature 2022-09-02 15:22:00 36.17 Felipa [facility] Respiratory rate 2022-09-02 15:22:00 20 /min [facility] Body height 2022-09-02 15:22:00 144.8 cm [facility] Body weight 2022-09-02 15:22:00 64.774 kg [facility] BMI 2022-09-02 15:22:00 30.90 kg/m2 [facility] Procedures Procedure Date / Time Performed Performing Clinicia n Source ASSIGNMENT OF BENEFITS 2023-04-29 18:28:07 Docto r Unassigned, [place] [facility] Encounters Start Date/Time End Date/Time Encounter Type Admission Type Attending Clinicians Care Facility Care Department Encounter ID Source 2023-09-23 15:00:00 2023-09-23 15:00:00 Outpatient R MALA MCCLOUD [facility] [id number] [facility] 2023-09-21 00:00:00 2023-09-21 00:00:00 Telephone Irina Trevino [id number] 350.1.13.10 4.2.7.2.686 [id number] [facility] 2023-06-17 14:30:00 2023-06-17 14:30:00 Outpatient R KATIE REYES [facility] [id number] [facility] 2023-06-02 14:30:00 2023-06-02 14:30:00 Outpatient R ETHEL BENZ CHERYAL [facility] [id number] [facility] 2023-05-13 13:20:00 2023-05-13 13:20:00 Outpatient R OBAnnita-Anabella FUCH[facility] [id number] [facility] 2023-04-29 15:20:00 2023-04-29 15:20:00 Outpatient R OBI-JEF , SAMPSON OBI-JEF , SAMPSON [facility] [id number] [facility] 2023-04-29 13:20:00 2023-04-29 14:00:56 Outpatient R [facility]BI[facility]JEF , [facility] [id number] [facility] 2023-04-29 13:20:00 2023-04-29 14:00:56 [facility] 1..840.114 350.1.13.10 4.2.7.2.686 [id number] [facility] 2023-04-29 00:00:00 2023-04-29 00:00:00 Orders Only Doctor Unassigned, [place] [facility] 1..840.114 350.1.13.10 4.2.7.2.686 [id number] [facility] 2023-03-20 14:00:00 2023-03-20 14:00:00 Outpatient R KATIE REYES [facility] [id number] [facility] 2023-02-06 17:09:18 2023-02-06 17:09:18 Outpatient [facility] [id number] 0616 Bhaskar Art Curry 2022-09-04 00:00:00 2022-09-04 00:00:00 Patient Secure Msg Katie Reyes [facility] MACHINE [facility] 1..840.114 350.1.13.10 4.2.7.2.686 [id number] [facility] 2022-09-03 00:00:00 2022-09-03 00:00:00 Telephone Katie Reyes [facility] MACHINE [facility] & CHILD [facility] 1..840.114 350.1.13.10 4.2.7.2.686 [id number] [facility] 2022-09-02 09:15:00 2022-09-02 10:00:59 Outpatient R KATIE REYES [facility] [id number] [facility] 2022-09-02 09:15:00 2022-09-02 10:00:59 Office Visit Katie Reyes [facility] MACHINE [facility] & CHILD [facility] ..840.114 350.1.13.10 4.2.7.2.686 [id number] [facility] 2022-07-31 09:45:00 2022-07-31 09:45:00 Outpatient R MALA MCCLOUD [facility] [id number] [facility] 2022-06-06 13:30:00 2022-06-06 13:30:00 Outpatient R KATIE REYES [facility] [id number] [facility] 2022-06-02 08:15:00 2022-06-02 08:15:00 Outpatient R KATIE REYES [facility] [id number] [facility] 2022-05-14 00:00:00 2022-05-14 00:00:00 Refill Katie Reyes [facility] MACHINE [facility] & CHILD [facility] ..840.114 350.1.13.10 4.2.7.2.686 [id number] [facility] 2022-05-01 13:45:00 2022-05-01 13:45:00 Outpatient R [facility] [id number] [facility] 2022-05-01 00:00:00 2022-05-01 00:00:00 Telephone Katie Reyes [facility] MACHINE [facility] CHILD [facility] [id number] 350.1.13.10 4.2.7.2.686 [id number] [facility] 2022-04-30 00:00:00 2022-04-30 00:00:00 Telephone Katie Reyes MACHINE [facility] CHILD [facility] 1.2.840.114 350.1.13.10 4.2.7.2.686 [id number] [facility] 2022-04-10 00:00:00 2022-04-10 00:00:00 Refill Katie Reyes [facility] MACHINE [facility] 1.2840.114 350.1.13.10 4.2.7.2.686 [id number] [facility] 2022-03-21 00:00:00 2022-03-21 00:00:00 Telephone Katie Reyes [facility] MACHINE [facility] 1.840.114 350.1.13.10 4.2.7.2.686 [id number] [facility] 2022-03-21 00:00:00 2022-03-21 00:00:00 Telephone Katie Reyes MACHINE [facility] CHILD [facility] 1.2840.114 350.1.13.10 4.2.7.2.686 [id number] [facility] 2022-03-19 08:15:00 2022-03-19 09:30:09 Outpatient R KATIE REYES [facility] [id number] [facility] 2022-03-19 08:15:00 2022-03-19 09:30:09 Office Visit Katie Reyes MACHINE [facility] CHILD [facility] 1.2840.114 350.1.13.10 4.2.7.2.686 [id number] [facility] 2022-03-19 08:15:00 2022-03-19 08:15:00 Outpatient R KATIE REYES [facility] [id number] [facility] 2022-03-19 00:00:00 2022-03-19 00:00:00 Orders Only Doctor Unassigned, [place] [facility] 1..840.114 350.1.13.10 4.2.7.2.686 [id number] [facility] 2021-09-17 00:00:00 2021-09-17 00:00:00 Case Management Naa Fong 1..840.114 350.1.13.10 4.2.7.2.686 [id number] [facility] 2021-04-08 15:00:00 2021-04-08 15:00:00 Outpatient R CHALO HEATON [facility] [id number] [facility] 2021-03-04 15:00:00 2021-03-04 15:00:00 Outpatient R VICTORIA GARCIA [facility] [id number] [facility] 2020-10-11 15:15:00 2020-10-11 15:15:00 Outpatient R KATIE REYES [facility] [id number] [facility] 2020-09-11 15:00:00 2020-09-11 15:00:00 Outpatient R KATIE REYES [facility] [id number] [facility] 2020-07-11 16:00:00 2020-07-11 16:00:00 Outpatient R KATIE REYES [facility] [id number] [facility] 2020-07-10 15:00:00 2020-07-10 15:00:00 Outpatient R KATIE REYES [facility] [id number] [facility] 2020-06-20 08:15:00 2020-06-20 08:15:00 Outpatient R KATIE REYES [facility] [id number] [facility] 2020-01-24 15:30:00 2020-01-24 15:30:00 Outpatient R KATIE REYES [facility] [id number] [facility] Notes Date/Time Note Provider Source 2023-09-21 14:32:36 wo++[id number] anCKZWPsJ [id number] [id number]:36Form atting of this note is different from the original.Erna Bradshawarez [id number]/29/24Incoming call from patient after receiving a text message from [facility] regarding Well Women exam.Current overdue topics are as followsHealth Maintenance DueTopic Date DueWELL CARE VISIT: 12-21 YEARS (yearly) Never doneMENINGOCOCCAL B VACCINES (1 of 2 - Risk Bexsero 2-dose series) Never doneSDOH Financial Resource Strain Never doneSDOH Food Insecurity Never doneSDOH Transportation Needs Never doneHEPATITIS C (HCV) SCREEN Never doneCervical Cancer Screening Never doneCHLAMYDIA SCREENING 09/02/2023Incoming call from a patient who received a text for a Well Women exam. Patient was scheduled for a WWE on Saturday September 23, 2023 at 3:00pm and arrival at 2:45PM.Patient was given the date, time and location of the Well Women exam.Irina Trevino RN 09/21/2023 2:32 PM [id number] encounter [id number]:35:35Tele phone encounter [id number] ailable for patient [id number] matted C-CDA narrative [id number] Trevino RN[address] Iy[id number] [id number] [id number]|[id number] .[id number] Irina Trevino RN [facility]"
[2023-11-25] MEDS ORDERED: KETOROLAC 30 MG/ML INJ ONE (13:55)
[2023-11-25] MEDS ORDERED: ONDANSETRON 4 MG/2 ML VIAL ONE (13:55)
[2023-11-25] MEDS ORDERED: NA CHLORIDE 0.9% 1,000 ML ONE (13:56)
[2023-11-25 14:09] LABS: Absolute Eosinophils 0.2 K/uL (0-0.5); Absolute Lymphocytes (CBC) 2.4 K/uL (0.7-4.9); Absolute Monocytes 0.7 K/uL (0.1-1.3); Absolute Neutrophil 4.3 K/uL (1.8-8.0); Basophils % 0.5 % (0-1.3); Eosinophils % 2.4 % (0-4.4); Hematocrit 40.5 % (36.0-45.0); Lymphocytes % 31.9 % (15.3-44.8); MCH 30.3 pg (27.0-35.0); MCHC 34.6 g/dL (32.0-36.0); MCV 87.5 fL (80-100); MPV 6.7 fL (7.6-11.3); Monocytes % 8.9 % (3.3-12.3); Neutrophils % 56.3 % (41.7-73.7); Nucleated Red Blood Cells % 0.1 % (0-0); Platelets 445 thou/uL (152-406); RBC Red Blood Cell Count 4.63 M/uL (3.86-4.86); Red Cell Distribution Width 13.3 % (12.1-15.2); Specific Gravity > 1.030 (1.005-1.030)
[2023-11-25 14:11] LABS: Specific Gravity > 1.030 (1.005-1.030); Sqamous Epithelial 20-50 /HPF (None Seen); Urine Bacteria <20 /HPF (<20); Urine Bilirubin NEGATIVE (Negative); Urine Blood 3+ (OVER) (Negative); Urine Clarity Extremely Turbid (Clear); Urine Color Light-Orange (Yellow); Urine Culture Reflex Order NOT NEEDED; Urine Glucose NEGATIVE (Negative); Urine Ketones NEGATIVE (Negative); Urine Microscopic Reflex YN ORDER UMIC; Urine Mucus 4+ /HPF (None Seen); Urine Nitrite NEGATIVE (Negative); Urine Protein 1+ (Negative); Urine Urobilinogen Normal (Normal); Urine WBC 20-50 /HPF (<5)
[2023-11-25 14:26] LABS: Albumin 4.4 g/dL (3.4-5.0); Albumin/Globulin Ratio 1.1 (1.1-1.8); Bilirubin Total 0.5 mg/dL (0.2-1.0); Globulin 4.1 g/dL (2.3-3.5); Protein, Total 8.5 g/dL (6.4-8.2)
--- NOTE | 2023-11-25 15:20 | RAD REPORT ---
EXAM DESCRIPTION: CT - Abdomen Pelvis W Contrast - 11/25/2023 2:45 pm CLINICAL HISTORY: ABD PAIN COMPARISON: Abdomen Pelvis W Contrast dated 11/22/2022; Abdomen Pelvis W Contrast dated 11/25/2016; CT ABD PELVIS W CONTRAST dated 10/05/2015 TECHNIQUE: Thin cut axial CT imaging of the abdomen and pelvis was performed following intravenous a dministration of 100 mL Isovue 300. Multiplanar reformats were generated and reviewed. All CT scans are performed using dose optimization technique as appropriate and may include automated exposure control or mA/KV adjustment according to patient size. FINDINGS: No suspicious findings in the lung bases. The liver, spleen, adrenal glands, and pancreas show no suspicious findings. Gallbladder and biliary tree are also without suspicious finding. Symmetric renal function is seen with no hydronephrosis or suspicious renal mass. No dilated bowel loops or bowel wall thickening. No free air, free fluid or inflammatory stranding. N o hernia, mass or bulky lymphadenopathy. The urinary bladder is suboptimally distended limiting evalu ation. No suspicious bony findings. IMPRESSION: No acute intra-abdominal process.
--- NOTE | 2023-11-25 15:35 | EDPHYS ---
Physician Documentation [facility] Name: Erna Villeda Age: 23 yrs Sex: Female : 2000 Arrival Date: 11/25/2023 Time: 13:38 Bed 13 Private MD: ED Physician Don Alves HPI: 11/24 14:19 This 23 yrs old Female presents to ER via Ambulatory with complaints of kb Abdominal Pain. 14:19 Pt is a 23 year old female who presents for lower abd pain, n/v/d that started 3 days kb ago. Denies fever, urinary symptoms. States vomiting was the first day, but just nausea since then. States eating makes nausea worse so she hasn't had an appetite. 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 - Infectious Disease History:: Denies. - Social history:: Smoking status: Patient denies any tobacco usage or history of. ROS: 14:19 Constitutional: As per HPI kb Exam: 14:19 Constitutional: This is a well developed, well nourished patient who is awake, alert, kb and in no acute distress. Head/Face: Normocephalic, atraumatic. ENT: Moist Mucous membranes Cardiovascular: Regular rate Respiratory: Respirations even and unlabored. No increased work of breathing. Talking in full sentences Skin: Warm, dry with normal turgor. Normal color. MS/ Extremity: Pulses equal, no cyanosis. Neurovascular intact. Full, normal range of motion. Neuro: Awake and alert, GCS 15, oriented to person, place, time, and situation. Moves all extremities. Normal gait. 14:19 Abdomen/GI: Inspection: abdomen appears normal, Bowel sounds: normal, Palpation: soft, in all quadrants, mild abdominal tenderness, in the right lower quadrant and left lower quadrant, Vital Signs: 13:51 BP 115 / 72; Pulse 71; Resp 17; Temp 98.1(O); Pulse Ox 98% ; Weight 65.77 kg; Height 4 ap3 ft. 9 in. ; Pain 7/10; 15:05 BP 135 / 90; Pulse 66; Resp 16; Pulse Ox 99% ; bp 16:17 BP 121 / 75; Pulse 71; Resp 16; Pulse Ox 99% ; bp 13:51 Body Mass Index 31.38 (65.77 kg, 144.78 cm) ap3 13:51 Pain Scale: Adult ap3 MDM: 13:41 Patient medically screened. kb 14:19 Differential diagnosis: appendicitis, diverticulitis, non-specific abd pain, urinary kb tract infection, gastroenteritis. Data reviewed: vital signs, nurses notes. 15:33 Counseling: I had a detailed discussion with the patient and/or guardian regarding the kb historical points, exam findings, and any diagnostic results supporting the discharge/admit diagnosis, lab results, radiology results, the need for outpatient follow up, a family practitioner, to return to the emergency department if symptoms worsen or persist or if there are any questions or concerns that arise at home. 11/24 13:50 Order name: CBC with Diff; Complete Time: 14:18 kb 11/24 13:50 Order name: CMP; Complete Time: 14:27 kb 11/24 13:50 Order name: Lipase; Complete Time: 14:27 kb 11/24 13:50 Order name: Test, Urine; Complete Time: 14:10 kb 11/24 13:50 Order name: Urinalysis w/ reflexes; Complete Time: 14:12 kb 11/24 13:50 Order name: CT Abd/Pelvis - IV Contrast Only; Complete Time: 15:28 kb 11/24 13:50 Order name: IV Saline Lock; Complete Time: 13:59 kb 11/24 13:50 Order name: Labs collected and sent; Complete Time: 13:59 kb Administered Medications: 14:00 Drug: NS 0.9% IV 1000 ml IV at 1 bolus Per protocol; 1000 mL bolus Route: IV; Rate: 1 mb9 bolus; Site: right antecubital; 16:19 Follow up: IV Status: Completed infusion; IV Intake: 1000ml bp 14:00 Drug: Ondansetron IVP 4 mg IVP once; over 2 minutes Route: IVP; Site: right antecubital;mb9 16:19 Follow up: Response: No adverse reaction bp 14:03 Drug: TORadol - Ketorolac IVP 15 mg IVP once Route: IVP; Site: right antecubital; mb9 16:19 Follow up: Response: No adverse reaction bp Disposition Summary: 11/25/23 15:34 Discharge Ordered Notes: Location: Home kb Condition: Stable kb Diagnosis - Lower abdominal pain, unspecified kb Followup: kb - With: Emergency Department - When: As needed - Reason: Worsening of condition Followup: kb - With: Private Physician - When: 2 - 3 days - Reason: Recheck today's complaints, Continuance of care, Re-evaluation by your physician Discharge Instructions: - Discharge Summary Sheet kb - Viral Gastroenteritis, Adult, [id number] kb - Abdominal Pain, Adult, [id number] kb Forms: - Medication Reconciliation Form kb - Thank You Letter kb - Antibiotic Education kb - Prescription Opioid Use kb - Patient Portal Instructions kb - Leadership Thank You Letter kb Prescriptions: - Zofran 4 mg Oral tablet - take 1 tablet ORAL route every 6 hours As needed; 12 tablet; Refills: 0, kb Product Selection Permitted - dicyclomine 20 mg Oral tablet - take 1 tablet ORAL route 4 times per day As needed; 20 tablet; Refills: 0, kb Product Selection Permitted Signatures: Dispatcher [employer] Palma Sanz, ALYSIA GARCIAP-Sophie Rutherford RN RN ap3 Marily Perry RN RN mb9 Leander Peoples RN bp
--- NOTE | 2023-11-25 15:35 | ER ---
Nurse's Notes [facility] Name: Erna Villeda Age: 23 yrs Sex: Female : 2000 Arrival Date: 11/25/2023 Time: 13:38 Bed 13 Private MD: Diagnosis: Lower abdominal pain, unspecified Presentation: 11/24 13:51 Chief complaint: Patient states: she has been having diffuse abdominal pain since ap3 Thursday11/21/23. patient also reports nausea and diarrhea in that same time frame. patient reports her pain to be a 7/10 on the pain scale at this time. Coronavirus screen: At this time, the client does not indicate any symptoms associated with coronavirus-19. Ebola Screen: No symptoms or risks identified at this time. Initial Sepsis Screen: Does the patient meet any 2 criteria? No. Patient's initial sepsis screen is negative. Does the patient have a suspected source of infection? No. Patient's initial sepsis screen is negative. Risk Assessment: Do you want to hurt yourself or someone else? Patient reports no desire to harm self or others. Onset of symptoms was November 21, 2023. 13:51 Method Of Arrival: Ambulatory ap3 13:51 Acuity: SIVA 3 ap3 Triage Assessment: 13:53 General: Appears ill, Behavior is calm, cooperative, appropriate for age. Pain: ap3 Complains of pain in abdomen Pain began 11/21/23. Neuro: Level of Consciousness is awake, alert, obeys commands, Oriented to person, place, time, situation, Appropriate for age. Cardiovascular: Patient's skin is warm and dry. Respiratory: Airway is patent Respiratory effort is even, unlabored, Respiratory pattern is regular, symmetrical. GI: Reports lower abdominal pain, upper abdominal pain, diarrhea, nausea. 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 - Infectious Disease History:: Denies. - Social history:: Smoking status: Patient denies any tobacco usage or history of. Screenin:55 Abuse screen: Denies threats or abuse. Nutritional screening: No deficits noted. ap3 Tuberculosis screening: No symptoms or risk factors identified. 16:18 [facility] ED Fall Risk Assessment (Adult) History of falling in the last 3 months, bp including since admission No falls in past 3 months (0 pts). Assessment: 14:00 General: SEE TRIAGE NOTE. bp 15:05 Reassessment: Patient appears in no apparent distress at this time. Patient is alert, bp oriented x 3, equal unlabored respirations, skin warm/dry/pink. 16:18 Reassessment: DC HOME. bp Vital Signs: 13:51 BP 115 / 72; Pulse 71; Resp 17; Temp 98.1(O); Pulse Ox 98% ; Weight 65.77 kg; Height 4 ap3 ft. 9 in. ; Pain 7/10; 15:05 BP 135 / 90; Pulse 66; Resp 16; Pulse Ox 99% ; bp 16:17 BP 121 / 75; Pulse 71; Resp 16; Pulse Ox 99% ; bp 13:51 Body Mass Index 31.38 (65.77 kg, 144.78 cm) ap3 13:51 Pain Scale: Adult ap3 ED Course: 13:41 Patient arrived in ED. mg5 13:41 Palma Marinelli FNP-C is [facility]. kb 13:41 Don Alves MD is Attending Physician. kb 13:45 Leander Peoples, ANTHONY is Primary Nurse. bp 13:52 Triage completed. ap3 13:54 Arm band placed on right wrist. ap3 13:59 Test, Urine Sent. mb9 13:59 CBC with Diff Sent. mb9 13:59 CMP Sent. mb9 13:59 Lipase Sent. mb9 13:59 Urinalysis w/ reflexes Sent. mb9 14:01 Inserted saline lock: 20 gauge in right antecubital area, using aseptic technique. mb9 Blood collected. 14:02 Placed in gown. Bed in low position. Call light in reach. Side rails up X 1. Client mb9 placed on continuous cardiac and pulse oximetry monitoring. NIBP monitoring applied. Door closed. Noise minimized. Warm blanket given. 14:03 Initial lab(s) drawn, by me, sent to lab. Urine collected: clean catch specimen, clear. mb9 14:47 CT Abd/Pelvis - IV Contrast Only In Process Unspecified. EDMS 16:18 Provided Education on: N/A. bp 16:18 No provider procedures requiring assistance completed. IV discontinued, intact, bp bleeding controlled, No redness/swelling at site. Pressure dressing applied. Administered Medications: 14:00 Drug: NS 0.9% IV 1000 ml IV at 1 bolus Per protocol; 1000 mL bolus Route: IV; Rate: 1 mb9 bolus; Site: right antecubital; 16:19 Follow up: IV Status: Completed infusion; IV Intake: 1000ml bp 14:00 Drug: Ondansetron IVP 4 mg IVP once; over 2 minutes Route: IVP; Site: right antecubital;mb9 16:19 Follow up: Response: No adverse reaction bp 14:03 Drug: TORadol - Ketorolac IVP 15 mg IVP once Route: IVP; Site: right antecubital; mb9 16:19 Follow up: Response: No adverse reaction bp Medication: 14:03 VIS not applicable for this client. mb9 Intake: 16:19 IV: 1000ml; Total: 1000ml. bp Outcome: 15:34 Discharge ordered by . kb 16:18 Discharged to home ambulatory, bp 16:18 Condition: stable 16:18 Discharge instructions given to patient, Instructed on discharge instructions, follow up and referral plans. medication usage, Demonstrated understanding of instructions, follow-up care, medications, Prescriptions given X 2, 16:19 Patient left the ED. bp Signatures: Dispatcher [employer] EDAL Palma Marinelli, LIBBY-Ranjan GARCIAP-Leander Tavares RN RN bp Sophie Cotto RN RN [email or web address] Marily Perry, RN RN mb9 Shiloh Hua mg5
[2023-11-25 17:00] VITALS: BP 121/75; TEMP 98.1; O2SAT 99
== END 2023-11-25 16:19 | disposition home or self-care (01) ==
LOC: ER 13:38
DX: R10.30 Lower abdominal pain, unspecified (principal)
CPT/HCPCS: 36415; 74177; 80053; 81001; 81025; 83690; 85025; 96361; 96374; 96375; 99284; J2405; J7030; Q9967

== ENCOUNTER 2024-09-02 09:19 | Emergency (ER) | payer OTHER ==
--- OUTSIDE RECORDS SUMMARY | 2024-09-02 09:22 | XMS REPORT | Continuity of Care Document ---
Author Name Unknown Address 1200 [facility]. [address] [facility] Address 1200 [facility] 1 [address] [place] [address] Care Team Providers Care Physician Coder Name Role Phone Katie Khan Primary Care Physicia n HUNTER CARTAGENA Attending Clinician Unavailable Hunter Valadez Attending Clinician [phone] ANTHONY ALEJANDRO Attending Clinician Unavailabl e Katie Khan Attending Clinician + Soraya, Ang-Rmchp Attending Clinician Unavailable Sherif Cartagena MD Attending Clinician [phone] SHERIF CARTAGENA Attending Clinician Unavailable MALA MCCLOUD Attending Clinician Irina Vásquez RN Attending Clinician Unav ailKATIE Lopez Attending Clinician Unavail ETHEL Paredes Attending Clinician UnavailETHEL Mccabe Attending Clinician Unavailmckayla sanchez OBI-JEF, SAMPSON Attending Clinician Unavailab le OBI-JEF SAM[place]ON Attending Clinician Unavail le Doctor Unassigned, [place] Attending Clinician U Naa Ratliff LMSW Attending Clinician UnaCHALO Sahni Attending Clinician Unavailable VICTORIA GARCIA Attending Clinician Unavailabl e Payers Payer Name Policy Type Policy Number Effective Date Expirati on Date Source [facility] [id number] 2024 00:00:00 Problems Condition Name Condition Details Condition Category Status Onset Date Resolution Date Last Treatment Date Treating Clinician Comments Source Vitamin D deficiency Vitamin D deficiency Disease Active 03-05 00:00: 00 [facility] Anxiety and depression Anxiety and depression Disease Active 03-05 00:00: 00 [facility] Irritabili ty and anger Irritabili ty and anger Disease Active 03-05 00:00: 00 [facility] Obesity (BMI 30-39.9) Obesity (BMI 30-39.9) Disease Active 03-05 00:00: 00 [facility] Other general counseling and advice for contracept nancie management Other general counseling and advice for contracept nancie management Disease Active 2018-08 00:00: 00 [facility] Ingrown hair Ingrown hair Disease Resolve d 09-19 00:00: 00 2024-02-11 00:00:00 2024-02-11 07:26:29 [facility] Nexplanon in place Nexplanon in place Disease Resolve d 2018-08 00:00: 00 2022-03-19 00:00:00 2022-03-19 09:01:02 [facility] Routine follow-up Routine follow-up Disease Resolve d 2018-08 00:00: 00 2022-03-19 00:00:00 2022-03-19 09:00:57 [facility] Single liveborn Single liveborn Disease Resolve d - 00:00: 00 2019-06-06 00:00:00 2019-06-06 15:41:33 [facility] Pre-eclamp shelbi, antepartum Pre-eclamp shelbi, antepartum Disease Resolve d 9 00:00: 00 2019-06-06 00:00:00 2019-06-06 15:41:30 [facility] (spontaneo us vaginal delivery) (spontaneo us vaginal delivery) Disease Resolve d 9- 00:00: 00 2019-06-06 00:00:00 2019-06-06 15:41:35 [facility] Iron deficiency anemia due to chronic blood loss Iron deficiency anemia due to chronic blood loss Disease Resolve d 9-22 00:00: 00 2019-06-06 00:00:00 2019-06-06 15:41:29 [facility] Second degree perineal laceration Second degree perineal laceration Disease Resolve d 9-22 00:00: 00 2019-06-06 00:00:00 2019-06-06 15:41:32 [facility] 39 weeks gestation of 39 weeks gestation of Disease Resolve d 9- 00:00: 00 2019-06-06 00:00:00 2019-06-06 15:41:26 [facility] Vaginal bleeding in Vaginal bleeding in Disease Resolve d 5-09 00:00: 00 2019-06-06 00:00:00 2019-06-06 15:41:24 [facility] Abnormal maternal glucose tolerance, antepartum Abnormal maternal glucose tolerance, antepartum Disease Resolve d 3-21 00:00: 00 2019-06-06 00:00:00 2019-06-06 15:41:27 [facility] Supervisio n of high-risk of young primigravi da Supervisio n of high-risk of young primigravi da Disease Resolve d 3-20 00:00: 00 2019-06-06 00:00:00 2019-06-06 15:41:34 [facility] Allergies, Adverse Reactions, Alerts Allergy Name Allergy Type Status Severity Reaction(s) Onset Date Inactive Date Treating Clinician Comments Source NO KNOWN ALLERGIE S Drug Class Active [facility] Social History Social Habit Start Date Stop Date Quantity Comments Source [facility] History SDOH Alcohol Frequency [facility] History SDOH Alcohol Std Drinks [facility] History SDOH Alcohol Binge [facility] Alcoholic beverage intake 2024-06-22 00:00:00 2024-06-22 00:00:00 Current drinker of alcohol (finding) [facility] History of Social function 2024-02-09 00:00:00 2024-02-09 00:00:00 [facility] Tobacco use and exposure 2023-04-29 00:00:00 2023-04-29 00:00:00 Smokeless tobacco non-user [facility] Alcohol intake 2023-04-29 00:00:00 2023-04-29 00:00:00 Current drinker of alcohol (finding) [facility] Exposure to SARS-CoV-2 (event) 2022-08-23 00:00:00 2022-09-02 09:26:00 Not sure [facility] Alcohol Comment 2021-03-04 00:00:00 2021-03-04 00:00:00 occassional/rare [facility] Sex assigned at 2000 00:00:00 2000 00:00:00 [facility] Smoking Status Start Date Stop Date Source Never smoked tobacco [facility] Medications Ordered Medication Name Filled Medication Name Start Date Stop Date Current Medication? Ordering Clinician Indication Dosage Frequency Signature (SIG) Comments Components Source metroNIDAZO LE 500 mg tablet 02-11 00:00: 00 Yes [id number] 500mg Take 1 tablet by mouth every 12 (twelve) hours. [facility] Nitrofurant oin&Nit. Macrocryst (MACROBID) 100 mg capsule 02-10 00:00: 00 Yes [id number] 100mg Take 1 capsule by mouth in the morning and 1 capsule in the evening. [facility] levonorgest rel-ethinyl estradiol 0.1-20 mg-mcg per tablet 02-08 00:00: 00 Yes [id number] 1{tbl} Take 1 tablet by mouth in the morning. [facility] SERTraline 25 mg tablet 04-29 00:00: 00 Yes [id number] 25mg Take 1 tablet by mouth in the morning. [facility] levonorgest rel-ethinyl estradiol (SRONYX) 0.1-20 mg-mcg per tablet 05-19 00:00: 00 02-08 00:00 :00 No [id number] 1{tbl} Take 1 tablet by mouth in the morning. [facility] azithromyci n 500 mg tablet 03-21 00:00: 00 03-22 04:59 :00 No [id number] 1000mg Take 2 tablets by mouth once now for [address] [facility] levonorgest rel-ethinyl estradiol (SRONYX) 0.1-20 mg-mcg per tablet 03-19 00:00: 00 05-14 00:00 :00 No [id number] 1{tbl} Take 1 tablet by mouth in the morning. [facility] Immunizations Ordered Immunization Name Filled Immunization Name Date Status Comments Source Influenza Virus Vaccine Quad .5 mL IM 6+ MO 2020-07-11 00:00:00 Completed [facility] Influenza Virus Vaccine Quad .5 mL IM 6+ MO 2020-07-11 00:00:00 Completed [facility] Influenza Virus Vaccine Quad .5 mL IM 6+ MO 2020-07-11 00:00:00 Completed [facility] Influenza Virus Vaccine Quad .5 mL IM 6+ MO 2020-07-11 00:00:00 Completed [facility] Influenza Virus Vaccine Quad .5 mL IM 6+ MO 2020-07-11 00:00:00 Completed [facility] Influenza Virus Vaccine Quad .5 mL IM 6+ MO 2020-07-11 00:00:00 Completed [facility] Influenza Virus Vaccine Quad .5 mL IM 6+ MO 2020-07-11 00:00:00 Completed [facility] Influenza Virus Vaccine Quad .5 mL IM 6+ MO (FLUZONE/FLULAVAL/F LUARIX) 2020-07-11 00:00:00 Completed [facility] Influenza Virus Vaccine Quad .5 mL IM 6+ MO (FLUZONE/FLULAVAL/F LUARIX) 2020-07-11 00:00:00 Completed [facility] Influenza Virus Vaccine Quad .5 mL IM 6+ MO (FLUZONE/FLULAVAL/F LUARIX) 2020-07-11 00:00:00 Completed HPV9 2019-05-16 00:00:00 Completed [facility] HPV9 2019-05-16 00:00:00 Completed [facility] HPV9 2019-05-16 00:00:00 Completed [facility] HPV9 2019-05-16 00:00:00 Completed [facility] HPV9 2019-05-16 00:00:00 Completed [facility] HPV9 2019-05-16 00:00:00 Completed [facility] HPV9 2019-05-16 00:00:00 Completed [facility] HPV9 2019-05-16 00:00:00 Completed [facility] HPV9 2019-05-16 00:00:00 Completed [facility] HPV9 2019-05-16 00:00:00 Completed [facility] TDAP (ADACEL) VACCINE 2019-03-07 00:00:00 Completed [facility] TDAP (ADACEL) VACCINE 2019-03-07 00:00:00 Completed [facility] TDAP (ADACEL) VACCINE 2019-03-07 00:00:00 Completed [facility] TDAP (ADACEL) VACCINE 2019-03-07 00:00:00 Completed [facility] TDAP (ADACEL) VACCINE 2019-03-07 00:00:00 Completed [facility] TDAP (ADACEL) VACCINE 2019-03-07 00:00:00 Completed [facility] TDAP (ADACEL) VACCINE 2019-03-07 00:00:00 Completed [facility] TDAP (ADACEL) VACCINE 2019-03-07 00:00:00 Completed [facility] TDAP (ADACEL) VACCINE 2019-03-07 00:00:00 Completed [facility] TDAP (ADACEL) VACCINE 2019-03-07 00:00:00 Completed [facility] Influenza Virus Vaccine Quad .5 mL IM 6+ MO 2018-11-10 00:00:00 Completed [facility] Influenza Virus Vaccine Quad .5 mL IM 6+ MO 2018-11-10 00:00:00 Completed [facility] Influenza Virus Vaccine Quad .5 mL IM 6+ MO 2018-11-10 00:00:00 Completed [facility] Influenza Virus Vaccine Quad .5 mL IM 6+ MO 2018-11-10 00:00:00 Completed [facility] Influenza Virus Vaccine Quad .5 mL IM 6+ MO 2018-11-10 00:00:00 Completed [facility] Influenza Virus Vaccine Quad .5 mL IM 6+ MO 2018-11-10 00:00:00 Completed [facility] Influenza Virus Vaccine Quad .5 mL IM 6+ MO 2018-11-10 00:00:00 Completed [facility] Influenza Virus Vaccine Quad .5 mL IM 6+ MO (FLUZONE/FLULAVAL/F LUARIX) 2018-11-10 00:00:00 Completed [facility] Influenza Virus Vaccine Quad .5 mL IM 6+ MO (FLUZONE/FLULAVAL/F LUARIX) 2018-11-10 00:00:00 Completed [facility] Influenza Virus Vaccine Quad .5 mL IM 6+ MO (FLUZONE/FLULAVAL/F LUARIX) 2018-11-10 00:00:00 Completed [facility] HPV 2015-04-17 00:00:00 Completed [facility] HPV 2015-04-17 00:00:00 Completed [facility] HPV 2015-04-17 00:00:00 Completed [facility] HPV 2015-04-17 00:00:00 Completed [facility] HPV 2015-04-17 00:00:00 Completed [facility] HPV 2015-04-17 00:00:00 Completed [facility] HPV 2015-04-17 00:00:00 Completed [facility] HPV 2015-04-17 00:00:00 Completed [facility] HPV 2015-04-17 00:00:00 Completed [facility] HPV 2015-04-17 00:00:00 Completed [facility] Influenza Virus Vaccine Quad .5 mL IM 6+ MO (FLUZONE/FLULAVAL/F LUARIX) Unknown Completed [facility] TDAP (ADACEL) VACCINE Unknown Completed [facility] HPV Unknown Completed [facility] HPV9 Unknown Completed [facility] Influenza Virus Vaccine Quad .5 mL IM 6+ MO (FLUZONE/FLULAVAL/F LUARIX) Unknown Completed [facility] TDAP (ADACEL) VACCINE Unknown Completed [facility] HPV Unknown Completed [facility] HPV9 Unknown Completed [facility] Influenza Virus Vaccine Quad .5 mL IM 6+ MO (FLUZONE/FLULAVAL/F LUARIX) Unknown Completed [facility] TDAP (ADACEL) VACCINE Unknown Completed [facility] HPV Unknown Completed [facility] HPV9 Unknown Completed [facility] Influenza Virus Vaccine Quad .5 mL IM 6+ MO (FLUZONE/FLULAVAL/F LUARIX) Unknown Completed [facility] TDAP (ADACEL) VACCINE Unknown Completed [facility] HPV Unknown Completed [facility] HPV9 Unknown Completed [facility] Influenza Virus Vaccine Quad .5 mL IM 6+ MO (FLUZONE/FLULAVAL/F LUARIX) Unknown Completed [facility] TDAP (ADACEL) VACCINE Unknown Completed [facility] HPV Unknown Completed [facility] HPV9 Unknown Completed [facility] Influenza Virus Vaccine Quad .5 mL IM 6+ MO (FLUZONE/FLULAVAL/F LUARIX) Unknown Completed [facility] TDAP (ADACEL) VACCINE Unknown Completed [facility] HPV Unknown Completed [facility] HPV9 Unknown Completed [facility] Vital Signs Vital Name Observation Time Observation Value Comments S ource Systolic blood pressure 2024-06-22 15:23:00 126 mm[Hg] [facility] Diastolic blood pressure 2024-06-22 15:23:00 81 mm[Hg] [facility] Heart rate 2024-06-22 15:23:00 80 /min [facility] Body temperature 2024-06-22 15:23:00 36.11 Felipa [facility] Respiratory rate 2024-06-22 15:23:00 18 /min [facility] Body height 2024-06-22 15:23:00 144.8 cm [facility] Body weight 2024-06-22 15:23:00 70.308 kg [facility] BMI 2024-06-22 15:23:00 33.54 kg/m2 [facility] Systolic blood pressure 2024-02-09 20:44:00 114 mm[Hg] [facility] Diastolic blood pressure 2024-02-09 20:44:00 70 mm[Hg] [facility] Heart rate 2024-02-09 20:44:00 67 /[facility] 2024-02-09 20:44:00 36.56 Felipa [facility] Respiratory rate 2024-02-09 20:44:00 18 /min [facility] Body weight 2024-02-09 20:44:00 69.4 kg [facility] BMI 2024-02-09 20:44:00 33.11 kg/m2 [facility] Systolic blood pressure 2023-04-29 18:32:00 122 mm[Hg] [facility] Diastolic blood pressure 2023-04-29 18:32:00 77 mm[Hg] [facility] Heart rate 2023-04-29 18:32:00 77 /min [facility] Body temperature 2023-04-29 18:32:00 36.33 Felipa [facility] Respiratory rate 2023-04-29 18:32:00 20 /min [facility] Body height 2023-04-29 18:32:00 144.8 cm [facility] Body weight 2023-04-29 18:32:00 62.143 kg [facility] BMI 2023-04-29 18:32:00 29.65 kg/m2 [facility] Oxygen saturation in Arterial blood by Pulse oximetry 2023-04-29 18:32:00 97 /min [facility] Systolic blood pressure 2022-09-02 15:22:00 117 mm[Hg] [facility] Diastolic blood pressure 2022-09-02 15:22:00 77 mm[Hg] [facility] Heart rate 2022-09-02 15:22:00 63 /min [facility] Body temperature 2022-09-02 15:22:00 36.17 Felipa [facility] Respiratory rate 2022-09-02 15:22:00 20 /min [facility] Body height 2022-09-02 15:22:00 144.8 cm [facility] Body weight 2022-09-02 15:22:00 64.774 kg [facility] BMI 2022-09-02 15:22:00 30.90 kg/m2 [facility] Procedures Procedure Date / Time Performed Performing Clinicia n Source PAP SMEAR-LIQUID BASED-CP 2024-02-09 21:49:00 Hunter Cartagena [facility] URINE CULTURE 2024-02-09 21:48:00 Hunter Cartagena [facility] POCT TEST 2024-02-09 20:46:00 Hunter Cartagena [facility] POCT URINALYSIS W/O SPECIFIC GRAVITY 2024-02-09 20:46:00 Hunter Cartagena [facility] ASSIGNMENT OF BENEFITS 2023-04-29 18:28:07 Docto r Unassigned, [place] [facility] Encounters Start Date/Time End Date/Time Encounter Type Admission Type Attending Clinicians Care Facility Care Department Encounter ID Source 2024-06-22 10:00:00 2024-06-22 10:54:56 Outpatient R HUNTER CARTAGENA [facility] [id number] [facility] 2024-06-22 10:00:00 2024-06-22 10:54:56 Office Visit Hunter Cartagena [facility] SCHEDULE CHECKER [facility] & CHILD [facility] 1.2.840.114 350.1.13.10 4.2.7.2.[id number] [facility] 2024-05-03 16:00:00 2024-05-03 16:00:00 Outpatient R HUNTER CARTAGENA [facility] [id number] [facility] 2024-03-07 09:15:00 2024-03-07 09:15:00 Outpatient R ANTHONY ALEJANDRO [facility] [id number] [facility] 2024-02-24 00:00:00 2024-02-24 15:58:32 Telephone Katie Reyes [facility] SCHEDULE CHECKER [facility] CHILD [facility] 1.2.840.114 350.1.13.10 4.2.7.2.[id number] [facility] 2024-02-12 00:00:00 2024-02-12 08:41:56 Case Management Hunter Cartagena [facility] SCHEDULE CHECKER [facility]ILD [facility] 1.2.840.114 350.1.13.10 4.2.7.2.[id number] [facility] 2024-02-11 14:45:00 2024-02-11 14:45:00 Demo Event Specialist Visit Lab, Ang-Rmchp Sherif Cartagena [facility] SCHEDULE CHECKER [facility] & CHILD [facility] 1.2.840.114 350.1.13.10 4.2.7.2.[id number] [facility] 2024-02-11 14:45:00 2024-02-11 14:43:55 Outpatient R SHERIF CARTAGENA SARAH [facility] [id number] [facility] 2024-02-09 15:30:00 2024-02-09 16:49:28 Outpatient R HUNTER CARTAGENA [facility] [id number] [facility] 2024-02-09 15:30:00 2024-02-09 16:49:28 Office Visit Hunter Cartagena [facility] SCHEDULE CHECKER [facility]ILD [facility] 1..840.114 350.1.13.10 4.2.7.2.[id number] [facility] 2023-09-23 15:00:00 2023-09-23 15:00:00 Outpatient R MALA MCCLOUD [facility] [id number] [facility] 2023-09-21 00:00:00 2023-09-21 00:00:00 Telephone Irina Trevino 1..840.114 350.1.13.10 4.2.7.2.[id number] [facility] 2023-06-17 14:30:00 2023-06-17 14:30:00 Outpatient R KATIE REYES [facility] [id number] [facility] 2023-06-02 14:30:00 2023-06-02 14:30:00 Outpatient R TEHEL BENZ CHERYAL [facility] [id number] [facility] 2023-05-13 13:20:00 2023-05-13 13:20:00 Outpatient R OBI-JEF , SAMPSON OBI-JEF , SAMPSON [facility] [id number] [facility] 2023-04-29 15:20:00 2023-04-29 15:20:00 Outpatient R OBI-JEF , SAMPSON OBI-JEF , SAMPOSN [facility] [id number] [facility] 2023-04-29 13:20:00 2023-04-29 14:00:56 Outpatient R OBI-JEF , SAMPSON OBI-JEF , SAMPSON [facility] [id number] [facility] 2023-04-29 13:20:00 2023-04-29 14:00:56 Office Visit Obi-Jef , Sampson [facility] 1..840.114 350.1.13.10 4.2.7.2.[id number] [facility] 2023-04-29 00:00:00 2023-04-29 00:00:00 Orders Only Doctor Unassigned, [place] [facility] 1..840.114 350.1.13.10 4.2.7.2.[id number] [facility] 2023-03-20 14:00:00 2023-03-20 14:00:00 Outpatient R KATIE REYES [facility] [id number] [facility] 2023-02-06 17:09:18 2023-02-06 17:09:18 Outpatient SFA SFA [id number] Bhaskar Zapien 2022-09-04 00:00:00 2022-09-04 00:00:00 Patient Secure MsKatie Acosta [facility] SCHEDULE CHECKER [facility]ILD [facility] 1.840.114 350.1.13.10 4.2.7.2.[id number] [facility] 2022-09-03 00:00:00 2022-09-03 00:00:00 Telephone Katie Reyes [facility] SCHEDULE CHECKER [facility]ILD [facility] 1.840.114 350.1.13.10 4.2.7.2.[id number] [facility] 2022-09-02 09:15:00 2022-09-02 10:00:59 Outpatient R KATIE REYES [facility] [id number] [facility] 2022-09-02 09:15:00 2022-09-02 10:00:59 Office Visit Katie Reyes [facility] SCHEDULE CHECKER [facility] .840.114 350.1.13.10 4.2.7.2.[id number] [facility] 2022-07-31 09:45:00 2022-07-31 09:45:00 Outpatient R MALA MCCLOUD [facility] [id number] [facility] 2022-06-06 13:30:00 2022-06-06 13:30:00 Outpatient R KATIE REYES [facility] [id number] [facility] 2022-06-02 08:15:00 2022-06-02 08:15:00 Outpatient R KATIE REYES [facility] [id number] [facility] 2022-05-14 00:00:00 2022-05-14 00:00:00 Refill Ktaie Reyes [facility] SCHEDULE CHECKER [facility] 1.840.114 350.1.13.10 4.2.7.2.[id number] [facility] 2022-05-01 13:45:00 2022-05-01 13:45:00 Outpatient R [facility] [id number] [facility] 2022-05-01 00:00:00 2022-05-01 00:00:00 Telephone Katie ReyesMB SCHEDULE CHECKER [facility] 1.2.840.114 350.1.13.10 4.2.7.2.[id number] [facility] 2022-04-30 00:00:00 2022-04-30 00:00:00 Telephone Katie Reyes [facility] SCHEDULE CHECKER [facility] 1.2.840.114 350.1.13.10 4.2.7.2.[id number] [facility] 2022-04-10 00:00:00 2022-04-10 00:00:00 Refill Katie Reyes SCHEDULE CHECKER [facility] 1.2.840.114 350.1.13.10 4.2.7.2.[id number] [facility] 2022-03-21 00:00:00 2022-03-21 00:00:00 Telephone Katie Reyes SCHEDULE CHECKER [facility] 1.2.840.114 350.1.13.10 4.2.7.2.[id number] [facility] 2022-03-21 00:00:00 2022-03-21 00:00:00 Telephone Katie Reyes [facility] SCHEDULE CHECKER [facility]ILD [facility] 1.2.840.114 350.1.13.10 4.2.7.2.[id number] [facility] 2022-03-19 08:15:00 2022-03-19 09:30:09 Outpatient R KATIE REYES [facility] [id number] [facility] 2022-03-19 08:15:00 2022-03-19 09:30:09 Office Visit Katie Reyes [facility] SCHEDULE CHECKER [facility] 1..840.114 350.1.13.10 4.2.7.2.[id number] [facility] 2022-03-19 08:15:00 2022-03-19 08:15:00 Outpatient R KATIE REYES [facility] [id number] [facility] 2022-03-19 00:00:00 2022-03-19 00:00:00 Orders Only Doctor Unassigned, [place] [facility] 1..840.114 350.1.13.10 4.2.7.2.[id number] [facility] 2021-09-17 00:00:00 2021-09-17 00:00:00 Case Management Naa Fong 1..840.114 350.1.13.10 4.2.7.2.[id number] [facility] 2021-04-08 15:00:00 2021-04-08 15:00:00 Outpatient R CHALO HEATON [facility] [id number] [facility] 2021-03-04 15:00:00 2021-03-04 15:00:00 Outpatient R VICTORIA GARCIA [facility] [id number] [facility] 2020-10-11 15:15:00 2020-10-11 15:15:00 Outpatient R KATIE REYES [facility] [id number] [facility] 2020-09-11 15:00:00 2020-09-11 15:00:00 Outpatient R KATIE REYES [facility] [id number] [facility] 2020-07-11 16:00:00 2020-07-11 16:00:00 Outpatient R KATIE REYES [facility] [id number] [facility] 2020-07-10 15:00:00 2020-07-10 15:00:00 Outpatient R KATIE REYES [facility] [id number] [facility] 2020-06-20 08:15:00 2020-06-20 08:15:00 Outpatient R KATIE REYES [facility] [id number] [facility] 2020-01-24 15:30:00 2020-01-24 15:30:00 Outpatient R KATIE REYES [facility] [id number] [facility] Results Test Description Test Time Test Comments Results Result Co mments [facility]/o Specific [id number] 20:46:00* Test Item Value Reference Range Interpretation Comme nts POCT PH U (test code = 3254) 5 mg/dl 5-8 POCT U LEUK EST (test code = 3263) Neg Negative - Negative POCT U NIT (test code = 3262) Neg Negative - Negati ve POCT U PROT (test code = 3259) Trace Negative - Negat nancie POCT U GLU (test code = 3256) Nml Negative - Negati ve POCT U KETONE (test code = 3258) None Negative - Neg ative POCT U BLD (test code = 3257) Trace Negative - Negati ve [facility]
--- NOTE | 2024-09-02 09:53 | RAD REPORT ---
EXAMINATION: XR RIGHT ANKLE CLINICAL INDICATION: . twisted ankle TECHNIQUE:Two view radiograph of the right ankle were obtained. COMPARISON: No prior exam. FINDINGS: No bone or joint abnormality detected.
--- NOTE | 2024-09-02 09:53 | ER ---
Nurse's Notes [facility] Name: Erna Villeda Age: 23 yrs Sex: Female : 2000 Arrival Date: 09/02/2024 Time: 09:19 Bed 4 Private MD: Diagnosis: Right ankle sprain Presentation: 09/02 09:26 Initial Sepsis Screen: Does the patient meet any 2 criteria? No. Patient's initial ph sepsis screen is negative. Does the patient have a suspected source of infection? No. Patient's initial sepsis screen is negative. Risk Assessment: Do you want to hurt yourself or someone else? Patient reports no desire to harm self or others. Onset of symptoms was September 02, 2024. 09:28 Chief complaint: Patient states: R ankle pain after slipping down the stairs 1 hour ll1 [employer]. Coronavirus screen: Client denies travel out of the [place] in the last 14 days. At this time, the client does not indicate any symptoms associated with coronavirus-19. Ebola Screen: Patient denies travel to an Ebola-affected area in the 21 days before illness onset. 09:28 Method Of Arrival: Wheelchair ll1 09:28 Acuity: SIVA 4 ll1 Triage Assessment: 09:30 General: Appears uncomfortable, Behavior is calm, cooperative, appropriate for age. ll1 Pain: Complains of pain in R ankle Quality of pain is described as aching. Historical: - Allergies: 09:28 No Known Allergies; ll1 - Home Meds: :28 None [Active]; ll1 - PMHx: :28 UTI; ll1 - PSHx: :28 None; ll1 - Immunization history:: Adult Immunizations up to date. - Infectious Disease History:: Denies. - Social history:: Smoking status: Patient denies any tobacco usage or history of. Screenin:25 [facility] ED Fall Risk Assessment (Adult) History of falling in the last 3 months, ph including since admission Yes- single mechanical fall (1 pt) Confusion or Disorientation No (0 pts) Intoxicated or Sedated No (0 pts) Impaired Gait No (0 pts) Mobility Assist Device Used No (0 pt) Altered Elimination No (0 pt) Score/Fall Risk Level 0 - 2 = Low Risk Oriented to surroundings, Maintained a safe environment, Hourly rounding (assess needs \T\ fall precautionary measures) done. Abuse screen: Denies threats or abuse. Denies injuries from another. Nutritional screening: No deficits noted. Tuberculosis screening: No symptoms or risk factors identified. Assessment: 09:38 General: Appears in no apparent distress. comfortable, Behavior is calm, cooperative. ph Pain: Complains of pain in right ankle. Neuro: Level of Consciousness is awake, alert, obeys commands, Oriented to person, place, time, situation. Cardiovascular: Capillary refill < 3 seconds in bilateral fingers Patient's skin is warm and dry. Respiratory: Airway is patent Respiratory effort is even, unlabored, Respiratory pattern is regular, symmetrical. Musculoskeletal: Circulation, motion, and sensation intact. Vital Signs: 09:28 BP 126 / 78; Pulse 88; Resp 16; Temp 97.5; Pulse Ox 100% on R/A; Weight 68.04 kg; ll1 Height 4 ft. 9 in. ; Pain 6/10; 09:28 Body Mass Index 32.46 (68.04 kg, 144.78 cm) ll1 09:28 Pain Scale: Adult ll1 ED Course: 09:20 Patient arrived in ED. ra3 09:21 Yeni Dunham, RN is Primary Nurse. ph 09:23 Maria G Rebolledo MD is Attending Physician. sp3 09:25 Arm band placed on Patient placed in an exam room, on a stretcher, on pulse oximetry. ph 09:26 Patient has correct armband on for positive identification. Bed in low position. Call ph light in reach. Side rails up X 1. Pulse ox on. NIBP on. Door closed. Noise minimized. 09:30 Triage completed. ll1 09:50 Ankle Right 3 View XRAY In Process Unspecified. EDMS 09:52 [employer] Jean Baptiste MD is Referral Physician. sp3 10:06 No provider procedures requiring assistance completed. Patient did not have IV access ph during this emergency room visit. Crutch training done. Lenny wrap to right ankle. Administered Medications: No medications were administered Medication: 09:25 VIS not applicable for this client. ph Outcome: 09:52 Discharge ordered by . sp3 10:06 Discharged to home ambulatory, with crutches, with significant other, ph 10:06 Condition: good 10:06 Discharge instructions given to patient, significant other, Instructed on discharge instructions, follow up and referral plans. crutch walking, Demonstrated understanding of instructions, follow-up care, crutch walking, 10:07 Patient left the ED. ph Signatures: Dispatcher [employer] Yeni Osman RN Kathy Boyer ph, RN RN ll1 Maria G Rebolledo MD MD sp3 Brooke García ra3
--- NOTE | 2024-09-02 09:53 | EDPHYS ---
Physician Documentation [facility] Name: Erna Villeda Age: 23 yrs Sex: Female : 2000 Arrival Date: 09/02/2024 Time: 09:19 Bed 4 Private MD: ED Physician Maria G Rebolledo HPI: 09/02 09:50 This 23 yrs old Female presents to ER via Wheelchair with complaints of Ankle sp3 Injury, Foot Injury. 09:50 23-year-old female with no significant past medical history presents with right ankle sp3 pain after "twisting it" while coming down the steps today. She denies any other injury including pain in the foot, knee or hip. Denies head injury, chest pain, shortness of breath, other extremity pain or any other signs or symptoms on ROS at this time.. Historical: - Allergies: 09:28 No Known Allergies; ll1 - Home Meds: 09:28 None [Active]; ll1 - PMHx: :28 UTI; ll1 - PSHx: 09:28 None; ll1 - Immunization history:: Adult Immunizations up to date. - Infectious Disease History:: Denies. - Social history:: Smoking status: Patient denies any tobacco usage or history of. ROS: 09:50 Constitutional: Negative for fever, chills, and weight loss, Eyes: Negative for injury, sp3 pain, redness, and discharge, Neck: Negative for injury, pain, and swelling, Cardiovascular: Negative for chest pain, palpitations, and edema, Respiratory: Negative for shortness of breath, cough, wheezing, and pleuritic chest pain, Abdomen/GI: Negative for abdominal pain, nausea, vomiting, diarrhea, and constipation, Back: Negative for injury and pain, : Negative for injury, bleeding, discharge, and swelling, Skin: Negative for injury, rash, and discoloration, Neuro: Negative for headache, weakness, numbness, tingling, and seizure, Psych: Negative for depression, anxiety, suicide ideation, homicidal ideation, and hallucinations, Allergy/Immunology: Negative for hives, rash, and allergies, Endocrine: Negative for neck swelling, polydipsia, polyuria, polyphagia, and marked weight changes, Hematologic/Lymphatic: Negative for swollen nodes, abnormal bleeding, and unusual bruising, 09:50 All other systems are negative, Exam: 09:51 Constitutional: This is a well developed, well nourished patient who is awake, alert, sp3 and in no acute distress. Head/Face: Normocephalic, atraumatic. Neck: Trachea midline, no thyromegaly or masses palpated, and no cervical lymphadenopathy. Supple, full range of motion without nuchal rigidity, or vertebral point tenderness. No Meningismus. Chest/axilla: Normal chest wall appearance and motion. Nontender with no deformity. No lesions are appreciated. Cardiovascular: Regular rate and rhythm with a normal S1 and S2. No gallops, murmurs, or rubs. Normal PMI, no JVD. No pulse deficits. Respiratory: Lungs have equal breath sounds bilaterally, clear to auscultation and percussion. No rales, rhonchi or wheezes noted. No increased work of breathing, no retractions or nasal flaring. Abdomen/GI: Soft, non-tender, with normal bowel sounds. No distension or tympany. No guarding or rebound. No evidence of tenderness throughout. Back: No spinal tenderness. No costovertebral tenderness. Full range of motion. Skin: Warm, dry with normal turgor. Normal color with no rashes, no lesions, and no evidence of cellulitis. Neuro: Awake and alert, GCS 15, oriented to person, place, time, and situation. Cranial nerves II-XII grossly intact. Motor strength 5/5 in all extremities. Sensory grossly intact. Cerebellar exam normal. Normal gait. Psych: Awake, alert, with orientation to person, place and time. Behavior, mood, and affect are within normal limits. 09:51 Musculoskeletal/extremity: Right ankle pain and pain to lateral malleolus. Patient states that she can put weight on it but it hurts. Neurovascular exam normal.. Vital Signs: 09:28 BP 126 / 78; Pulse 88; Resp 16; Temp 97.5; Pulse Ox 100% on R/A; Weight 68.04 kg; ll1 Height 4 ft. 9 in. ; Pain 6/10; 09:28 Body Mass Index 32.46 (68.04 kg, 144.78 cm) ll1 09:28 Pain Scale: Adult ll1 MDM: 09:28 Medical Screening Exam initiated sp3 09:51 Data reviewed: vital signs, nurses notes, radiologic studies. ED course: 21-year-old sp3 female with right ankle pain secondary to mechanical injury. Differential diagnosis includes ankle sprain versus fracture. X-ray demonstrates no fracture. We will place an Lenny wrap and discharged on crutches with follow-up to PCP as needed.. 09/02 09:29 Order name: Ankle Right 3 View XRAY; Complete Time: 09:57 sp3 09/02 09:49 Order name: Lenny Wrap; Complete Time: 10:07 sp3 09/02 09:49 Order name: Crutch Training; Complete Time: 10: sp3 Administered Medications: No medications were administered Disposition Summary: 09/02/24 09:52 Discharge Ordered Notes: Location: Home sp3 Condition: Stable sp3 Diagnosis - Right ankle sprain sp3 Followup: sp3 - With: [employer] Jean Baptiste MD - When: Upon discharge from the Emergency Department - Reason: Recheck today's complaints Discharge Instructions: - Discharge Summary Sheet sp3 - Ankle Sprain sp3 Forms: - Medication Reconciliation Form sp3 - Antibiotic Education sp3 - Prescription Opioid Use sp3 - Patient Portal Instructions sp3 - Leadership Thank You Letter sp3 Signatures: Dispatcher [employer] Yeni Osman RN RN Kathy Calero RN RN 1 Maria G Rebolledo MD MD sp3
[2024-09-02 10:20] VITALS: BP 126/78; TEMP 97.5; O2SAT 100
== END 2024-09-02 10:07 | disposition home or self-care (01) ==
LOC: ER 09:19
DX: S93.401A Sprain of unspecified ligament of right ankle, initial encounter (principal)
CPT/HCPCS: 99283

== ENCOUNTER 2024-12-15 10:35 | Emergency (ER) | payer OTHER, SELFPAY ==
--- OUTSIDE RECORDS SUMMARY | 2024-12-15 10:39 | XMS REPORT | Continuity of Care Document ---
Author Name Unknown Address [address] [facility] [address] [place] [address] [facility] Address [address] [facility] [address] [place] [address] Care Team Providers Care Manager Cleaning Name Role Phone KATIE REYES Primary Care Physician Unav MARITZA Vaughn Attending Clinician Unavailable MARITZA ALVARADO Attending Clinician Unavailable HUNTER CARTAGENA Attending Clinician Unavailable Hunter Valadez Attending Clinician [phone] ANTHONY ALEJANDRO Attending Clinician Unavailabl e Katie Khan Attending Clinician + Sammi Lira Attending Clinician Unavailable Sherif Cartagena MD Attending Clinician [phone] SHERIF CARTAGENA Attending Clinician Unavailable MALA MCCLOUD Attending Clinician UnavailIrina Roberts RN Attending Clinician Unav KATIE Castle Attending Clinician Unavail ETHEL Paredes Attending Clinician UnavailETHEL Mccabe Attending Clinician Unavailmckayla sanchez OBI-JEF SAMPSON Attending Clinician Unavailab le OBI-JEF, SAMPSON Attending Clinician Unavailab cook Doctor Unassigned, [place] Attending Clinician Naa Segovia LMSW Attending Clinician Unava CHALO Cornejo Attending Clinician Unavailable VICTORIA GARCIA Attending Clinician Unavailabl dmitri Payers Payer Name Policy Type Policy Number Effective Date Expirati on Date Source [facility] [id number] 2024 00:00:00 Problems Condition Name Condition Details Condition Category Status Onset Date Resolution Date Last Treatment Date Treating Clinician Comments Source Vitamin D deficiency Vitamin D deficiency Disease Active 03-05 00:00: 00 [facility] Anxiety and depression Anxiety and depression Disease Active 03-05 00:00: 00 [facility] Irritabili ty and anger Irritabili ty and anger Disease Active 03-05 00:00: 00 [facility] Obesity (BMI 30-39.9) Obesity (BMI 30-39.9) Disease Active 03-05 00:00: 00 [facility] Other general counseling and advice for contracept nancie management Other general counseling and advice for contracept nancie management Disease Active 2018-08 00:00: 00 [facility] Ingrown hair Ingrown hair Disease Resolve d 09-19 00:00: 00 2024-02-11 00:00:00 2024-02-11 07:26:29 [facility] Nexplanon in place Nexplanon in place Disease Resolve d 2018-08 00:00: 00 2022-03-19 00:00:00 2022-03-19 09:01:02 [facility] Routine follow-up Routine follow-up Disease Resolve d 2018-08 00:00: 00 2022-03-19 00:00:00 2022-03-19 09:00:57 [facility] Single liveborn Single liveborn Disease Resolve d 05-15 00:00: 00 2019-06-06 00:00:00 2019-06-06 15:41:33 [facility] Pre-eclamp shelbi, antepartum Pre-eclamp shelbi, antepartum Disease Resolve d 05-15 00:00: 00 2019-06-06 00:00:00 2019-06-06 15:41:30 [facility] (spontaneo us vaginal delivery) (spontaneo us vaginal delivery) Disease Resolve d 05-15 00:00: 00 2019-06-06 00:00:00 2019-06-06 15:41:35 [facility] Iron deficiency anemia due to chronic blood loss Iron deficiency anemia due to chronic blood loss Disease Resolve d 2018-0 9-22 00:00: 00 2019-06-06 00:00:00 2019-06-06 15:41:29 [facility] Second degree perineal laceration Second degree perineal laceration Disease Resolve d 2018-0 9-22 00:00: 00 2019-06-06 00:00:00 2019-06-06 15:41:32 [facility] 39 weeks gestation of 39 weeks gestation of Disease Resolve d 9-21 00:00: 00 2019-06-06 00:00:00 2019-06-06 15:41:26 [facility] Vaginal bleeding in Vaginal bleeding in Disease Resolve d 0 5-09 00:00: 00 2019-06-06 00:00:00 2019-06-06 15:41:24 [facility] Abnormal maternal glucose tolerance, antepartum Abnormal maternal glucose tolerance, antepartum Disease Resolve d 3-21 00:00: 00 2019-06-06 00:00:00 2019-06-06 15:41:27 [facility] Supervisio n of high-risk of young primigravi da Supervisio n of high-risk of young primigravi da Disease Resolve d 3-20 00:00: 00 2019-06-06 00:00:00 2019-06-06 15:41:34 [facility] Allergies, Adverse Reactions, Alerts Allergy Name Allergy Type Status Severity Reaction(s) Onset Date Inactive Date Treating Clinician Comments Source NO KNOWN ALLERGIE S Drug Class Active [facility] Social History Social Habit Start Date Stop Date Quantity Comments Source [facility]OH Alcohol Frequency [facility] History SDOH Alcohol Std Drinks [facility] History SDOH Alcohol Binge [facility] Alcoholic beverage intake 2024-06-22 00:00:00 2024-06-22 00:00:00 Current drinker of alcohol (finding) [facility] History of Social function 2024-02-09 00:00:00 2024-02-09 00:00:00 [facility] Tobacco use and exposure 2023-04-29 00:00:00 2023-04-29 00:00:00 Smokeless tobacco non-user [facility] Alcohol intake 2023-04-29 00:00:00 2023-04-29 00:00:00 Current drinker of alcohol (finding) [facility] Exposure to SARS-CoV-2 (event) 2022-08-23 00:00:00 2022-09-02 09:26:00 Not sure [facility] Alcohol Comment 2021-03-04 00:00:00 2021-03-04 00:00:00 occassional/rare [facility] Sex assigned at 2001 00:00:00 2000 00:00:00 [facility] Smoking Status Start Date Stop Date Source Never smoked tobacco [facility] Medications Ordered Medication Name Filled Medication Name Start Date Stop Date Current Medication? Ordering Clinician Indication Dosage Frequency Signature (SIG) Comments Components Source metroNIDAZO LE 500 mg tablet 02-11 00:00: 00 Yes [id number] 500mg Take 1 tablet by mouth every 12 (twelve) hours. [facility] Nitrofurant oin&Nit. Macrocryst (MACROBID) 100 mg capsule 02-10 00:00: 00 Yes [id number] 100mg Take 1 capsule by mouth in the morning and 1 capsule in the evening. [facility] levonorgest rel-ethinyl estradiol 0.1-20 mg-mcg per tablet 02-08 00:00: 00 Yes [id number] 1{tbl} Take 1 tablet by mouth in the morning. [facility] SERTraline 25 mg tablet 04-29 00:00: 00 Yes [id number] 25mg Take 1 tablet by mouth in the morning. [facility] levonorgest rel-ethinyl estradiol (SRONYX) 0.1-20 mg-mcg per tablet 05-19 00:00: 00 02-08 00:00 :00 No [id number] 1{tbl} Take 1 tablet by mouth in the morning. [facility] azithromyci n 500 mg tablet 03-21 00:00: 00 03-22 04:59 :00 No [id number] 1000mg Take 2 tablets by mouth once now for 1 dose. [facility] levonorgest rel-ethinyl estradiol (SRONYX) 0.1-20 mg-mcg per tablet 03-19 00:00: 00 05-14 00:00 :00 No [id number] 1{tbl} Take 1 tablet by mouth in the morning. [facility] Immunizations Ordered Immunization Name Filled Immunization Name Date Status Comments Source Influenza Virus Vaccine Quad .5 mL IM 6+ MO (FLUZONE/FLULAVAL/F LUARIX) 2024-02-24 00:00:00 Completed [facility] TDAP (ADACEL) VACCINE 2024-02-24 00:00:00 Completed [facility] HPV 2024-02-24 00:00:00 Completed [facility] HPV9 2024-02-24 00:00:00 Completed [facility] Influenza Virus Vaccine Quad .5 mL IM 6+ MO (FLUZONE/FLULAVAL/F LUARIX) 2023-09-21 00:00:00 Completed [facility] TDAP (ADACEL) VACCINE 2023-09-21 00:00:00 Completed [facility] HPV 2023-09-21 00:00:00 Completed [facility] HPV9 2023-09-21 00:00:00 Completed [facility] Influenza Virus Vaccine Quad .5 mL IM 6+ MO (FLUZONE/FLULAVAL/F LUARIX) 2022-09-04 00:00:00 Completed [facility] TDAP (ADACEL) VACCINE 2022-09-04 00:00:00 Completed [facility] HPV 2022-09-04 00:00:00 Completed [facility] HPV9 2022-09-04 00:00:00 Completed [facility] Influenza Virus Vaccine Quad .5 mL IM 6+ MO 2020-07-11 00:00:00 Completed [facility] Influenza Virus Vaccine Quad .5 mL IM 6+ MO 2020-07-11 00:00:00 Completed [facility] Influenza Virus Vaccine Quad .5 mL IM 6+ MO 2020-07-11 00:00:00 Completed [facility] Influenza Virus Vaccine Quad .5 mL IM 6+ MO 2020-07-11 00:00:00 Completed [facility] Influenza Virus Vaccine Quad .5 mL IM 6+ MO 2020-07-11 00:00:00 Completed [facility] Influenza Virus Vaccine Quad .5 mL IM 6+ MO 2020-07-11 00:00:00 Completed [facility] Influenza Virus Vaccine Quad .5 mL IM 6+ MO 2020-07-11 00:00:00 Completed [facility] Influenza Virus Vaccine Quad .5 mL IM 6+ MO (FLUZONE/FLULAVAL/F LUARIX) 2020-07-11 00:00:00 Completed [facility] Influenza Virus Vaccine Quad .5 mL IM 6+ MO (FLUZONE/FLULAVAL/F LUARIX) 2020-07-11 00:00:00 Completed [facility] Influenza Virus Vaccine Quad .5 mL IM 6+ MO (FLUZONE/FLULAVAL/F LUARIX) 2020-07-11 00:00:00 Completed HPV9 2019-05-16 00:00:00 Completed [facility] HPV9 2019-05-16 00:00:00 Completed [facility] HPV9 2019-05-16 00:00:00 Completed [facility] HPV9 2019-05-16 00:00:00 Completed [facility] HPV9 2019-05-16 00:00:00 Completed [facility] HPV9 2019-05-16 00:00:00 Completed [facility] HPV9 2019-05-16 00:00:00 Completed [facility] HPV9 2019-05-16 00:00:00 Completed [facility] HPV9 2019-05-16 00:00:00 Completed [facility] TDAP (ADACEL) VACCINE 2019-03-07 00:00:00 Completed [facility] TDAP (ADACEL) VACCINE 2019-03-07 00:00:00 Completed [facility] TDAP (ADACEL) VACCINE 2019-03-07 00:00:00 Completed [facility] TDAP (ADACEL) VACCINE 2019-03-07 00:00:00 Completed [facility] TDAP (ADACEL) VACCINE 2019-03-07 00:00:00 Completed [facility] TDAP (ADACEL) VACCINE 2019-03-07 00:00:00 Completed [facility] TDAP (ADACEL) VACCINE 2019-03-07 00:00:00 Completed [facility] TDAP (ADACEL) VACCINE 2019-03-07 00:00:00 Completed [facility] TDAP (ADACEL) VACCINE 2019-03-07 00:00:00 Completed [facility] Influenza Virus Vaccine Quad .5 mL IM 6+ MO 2018-11-10 00:00:00 Completed [facility] Influenza Virus Vaccine Quad .5 mL IM 6+ MO 2018-11-10 00:00:00 Completed [facility] Influenza Virus Vaccine Quad .5 mL IM 6+ MO 2018-11-10 00:00:00 Completed [facility] Influenza Virus Vaccine Quad .5 mL IM 6+ MO 2018-11-10 00:00:00 Completed [facility] Influenza Virus Vaccine Quad .5 mL IM 6+ MO 2018-11-10 00:00:00 Completed [facility] Influenza Virus Vaccine Quad .5 mL IM 6+ MO 2018-11-10 00:00:00 Completed [facility] Influenza Virus Vaccine Quad .5 mL IM 6+ MO 2018-11-10 00:00:00 Completed [facility] Influenza Virus Vaccine Quad .5 mL IM 6+ MO (FLUZONE/FLULAVAL/F LUARIX) 2018-11-10 00:00:00 Completed [facility] Influenza Virus Vaccine Quad .5 mL IM 6+ MO (FLUZONE/FLULAVAL/F LUARIX) 2018-11-10 00:00:00 Completed [facility] HPV 2015-04-17 00:00:00 Completed [facility] HPV 2015-04-17 00:00:00 Completed [facility] HPV 2015-04-17 00:00:00 Completed [facility] HPV 2015-04-17 00:00:00 Completed [facility] HPV 2015-04-17 00:00:00 Completed [facility] HPV 2015-04-17 00:00:00 Completed [facility] HPV 2015-04-17 00:00:00 Completed [facility] HPV 2015-04-17 00:00:00 Completed [facility] HPV 2015-04-17 00:00:00 Completed [facility] Vital Signs Vital Name Observation Time Observation Value Comments Jeff carmona Systolic blood pressure 2024-06-22 15:23:00 126 mm[Hg] [facility] Diastolic blood pressure 2024-06-22 15:23:00 81 mm[Hg] [facility] Heart rate 2024-06-22 15:23:00 80 /min [facility] Body temperature 2024-06-22 15:23:00 36.11 Felipa [facility] Respiratory rate 2024-06-22 15:23:00 18 /min [facility] Body height 2024-06-22 15:23:00 144.8 cm [facility] Body weight 2024-06-22 15:23:00 [facility]308 [facility] BMI 2024-06-22 15:23:00 33.54 kg/m2 [facility] Systolic blood pressure 2024-02-09 20:44:00 114 mm[Hg] [facility] Diastolic blood pressure 2024-02-09 20:44:00 70 mm[Hg] [facility] Heart rate 2024-02-09 20:44:00 67 /min [facility] Body temperature 2024-02-09 20:44:00 36.56 Felipa [facility] Respiratory rate 2024-02-09 20:44:00 18 /min [facility] Body weight 2024-02-09 20:44:00 69.4 kg [facility] BMI 2024-02-09 20:44:00 33.11 kg/m2 [facility] Systolic blood pressure 2023-04-29 18:32:00 122 mm[Hg] [facility] Diastolic blood pressure 2023-04-29 18:32:00 77 mm[Hg] [facility] Heart rate 2023-04-29 18:32:00 77 /min [facility] Body temperature 2023-04-29 18:32:00 36.33 Felipa [facility] Respiratory rate 2023-04-29 18:32:00 20 /min [facility] Body height 2023-04-29 18:32:00 144.8 cm [facility] Body weight 2023-04-29 18:32:00 62.143 kg [facility] BMI 2023-04-29 18:32:00 29.65 kg/m2 [facility] Oxygen saturation in Arterial blood by Pulse oximetry 2023-04-29 18:32:00 97 /min [facility] Systolic blood pressure 2022-09-02 15:22:00 117 mm[Hg] [facility] Diastolic blood pressure 2022-09-02 15:22:00 77 mm[Hg] [facility] Heart rate 2022-09-02 15:22:00 63 /min [facility] Body temperature 2022-09-02 15:22:00 36.17 Felipa [facility] Respiratory rate 2022-09-02 15:22:00 20 /min [facility] Body height 2022-09-02 15:22:00 144.8 cm [facility] Body weight 2022-09-02 15:22:00 64.774 kg [facility] BMI 2022-09-02 15:22:00 30.90 kg/m2 [facility] Procedures Procedure Date / Time Performed Performing Clinicia n Source PAP SMEAR-LIQUID BASED-CP 2024-02-09 21:49:00 Hunter Cartagena [facility] URINE CULTURE 2024-02-09 21:48:00 Hunter Cartagena [facility] POCT TEST 2024-02-09 20:46:00 Hunter Cartagena [facility] POCT URINALYSIS W/O SPECIFIC GRAVITY 2024-02-09 20:46:00 Hunter Cartagena [facility] ASSIGNMENT OF BENEFITS 2023-04-29 18:28:07 Docto r Unassigned, [place] [facility] Encounters Start Date/Time End Date/Time Encounter Type Admission Type Attending Clinicians Care Facility Care Department Encounter ID Source 2024-11-30 10:30:00 2024-11-30 10:30:00 Outpatient R CARLOSVAISHNAVIALMARITZA MARITZA ALVARADO [facility] [id number] [facility] 2024-06-22 10:00:00 2024-06-22 10:54:56 Outpatient R HUNTER CARTAGENA [facility] [id number] [facility] 2024-06-22 10:00:00 2024-06-22 10:54:56 Office Visit Hunter Cartagena [facility] FLASH [employer] OPERATOR [facility] .0.114 350.1.13.10 4.2.7.2.686 [id number] 107 [id number] [facility] 2024-05-03 16:00:00 2024-05-03 16:00:00 Outpatient R JAZMIN HUNTER [facility] [id number] [facility] 2024-03-07 09:15:00 2024-03-07 09:15:00 Outpatient R ANTHONY ALEJANDRO [facility] [id number] [facility] 2024-02-24 00:00:00 2024-02-24 15:58:32 Telephone Katie Reyes [facility] FLASH OV[employer] OPERATOR [facility] ..114 350.1.13.10 4.2.7.2.686 [id number] 107 [id number] [facility] 2024-02-12 00:00:00 2024-02-12 08:41:56 Case Management Hunter Cartagena [facility] FLASH OV[employer] OPERATOR [facility] .84.114 350.1.13.10 4.2.7.2.686 [id number] [facility] 2024-02-11 14:45:00 2024-02-11 14:45:00 Education Department Chair Visit Lab, Jarrett-Rmchp Sherif Cartagena [facility] FLASH OVEN OPERATOR [facility] ..114 350.1.13.10 4.2.7.2.686 [id number] [facility] 2024-02-11 14:45:00 2024-02-11 14:43:55 Outpatient R JAZMIN SHERIF MARGIE CARTAGENAAH [facility] [id number] [facility] 2024-02-09 15:30:00 2024-02-09 16:49:28 Outpatient R GALEN CARTAGENAICE [facility] [id number] [facility] 2024-02-09 15:30:00 2024-02-09 16:49:28 Office Visit Galen Cartagenaice [facility] FLASH OVEN OPERATOR [facility] [id number] 350.1.13.10 4.2.7.2.686 [id number] [facility] 2023-09-23 15:00:00 2023-09-23 15:00:00 Outpatient R MALA MCCLOUD [facility] [id number] [facility] 2023-09-21 00:00:00 2023-09-21 00:00:00 Telephone Irina Trevino 1.2.840.114 350.1.13.10 4.2.7.2.686 [id number] [facility] 2023-06-17 14:30:00 2023-06-17 14:30:00 Outpatient R KATIE REYES [facility] [id number] [facility] 2023-06-02 14:30:00 2023-06-02 14:30:00 Outpatient R ETHEL BENZ CHERYAL [facility] [id number] [facility] 2023-05-13 13:20:00 2023-05-13 13:20:00 Outpatient R OBI-JEF SAMPSON OBI-JEF , SAMPSON [facility] [id number] [facility] 2023-04-29 15:20:00 2023-04-29 15:20:00 Outpatient R OBI-JEF , SAMPSON OBI-JEF , SAMPSON [facility] [id number] [facility] 2023-04-29 13:20:00 2023-04-29 14:00:56 Outpatient R OBI-JEF , SAMPSON OBI-JEF , SAMPSON [facility] [id number] [facility] 2023-04-29 13:20:00 2023-04-29 14:00:56 Office Visit Obi-Jef , Sampson [facility] 1.84.114 350.1.13.10 4.2.7.2.686 [id number] [facility] 2023-04-29 00:00:00 2023-04-29 00:00:00 Orders Only Doctor Unassigned, [place] [facility] 1..114 350.1.13.10 4.2.7.2.686 [id number] [facility] 2023-03-20 14:00:00 2023-03-20 14:00:00 Outpatient R KATIE REYES [facility] [id number] [facility] 2023-02-06 17:09:18 2023-02-06 17:09:18 Outpatient SFA [facility] [id number] 0616 Bhaskar Zapien 2022-09-04 00:00:00 2022-09-04 00:00:00 Patient Secure Msg Katie Reyes [facility] FLASH OVEN OPERATOR [facility] 1.840.114 350.1.13.10 4.2.7.2.686 [id number] [facility] 2022-09-03 00:00:00 2022-09-03 00:00:00 Telephone Katie Reyes [facility] FLASH OVEN OPERATOR [facility] 1.84.114 350.1.13.10 4.2.7.2.686 [id number] 107 [id number] [facility] 2022-09-02 09:15:00 2022-09-02 10:00:59 Outpatient R KATIE REYES [facility] [id number] [facility] 2022-09-02 09:15:00 2022-09-02 10:00:59 Office Visit Katie Reyes [facility] FLASH OVEN OPERATOR [facility] .840.114 350..13.10 4.2.7.2.686 [id number] [facility] 2022-07-31 09:45:00 2022-07-31 09:45:00 Outpatient R MALA MCCLOUD [facility] [id number] [facility] 2022-06-06 13:30:00 2022-06-06 13:30:00 Outpatient R KATIE REYES [facility] [id number] [facility] 2022-06-02 08:15:00 2022-06-02 08:15:00 Outpatient R KATIE REYES [facility] [id number] [facility] 2022-05-14 00:00:00 2022-05-14 00:00:00 Refill Katie Reyes [facility] FLASH OVEN OPERATOR [facility] 840.114 350..13.10 4.2.7.2.686 [id number] [facility] 2022-05-01 13:45:00 2022-05-01 13:45:00 Outpatient R [facility] [id number] [facility] 2022-05-01 00:00:00 2022-05-01 00:00:00 Telephone Katie Reyes [facility] FLASH OVEN OPERATOR [facility] .840.114 350..13.10 4.2.7.2.686 [id number] [facility] 2022-04-30 00:00:00 2022-04-30 00:00:00 Telephone Katie Reyes [facility] FLASH OVEN OPERATOR [facility] 1.2.840.114 350.1.13.10 4.2.7.2.686 [id number] [facility] 2022-04-10 00:00:00 2022-04-10 00:00:00 Refill Katie Reyes [facility] FLASH OVEN OPERATOR [facility] 1.2.840.114 350.1.13.10 4.2.7.2.686 [id number] [facility] 2022-03-21 00:00:00 2022-03-21 00:00:00 Telephone Katie Reyes [facility] FLASH OVEN OPERATOR [facility] 1.2.840.114 350.1.13.10 4.2.7.2.686 [id number] [facility] 2022-03-21 00:00:00 2022-03-21 00:00:00 Telephone Katie Reyes [facility] FLASH OVEN OPERATOR [facility] 1.2.840.114 350.1.13.10 4.2.7.2.686 [id number] [facility] 2022-03-19 08:15:00 2022-03-19 09:30:09 Outpatient R KATIE REYES [facility] [id number] [facility] 2022-03-19 08:15:00 2022-03-19 09:30:09 Office Visit Katie Reyes [facility] FLASH OVEN OPERATOR [facility] 1.2.840.114 350.1.13.10 4.2.7.2.686 [id number] [facility] 2022-03-19 08:15:00 2022-03-19 08:15:00 Outpatient R DERRICK KATIE [facility] [id number] [facility] 2022-03-19 00:00:00 2022-03-19 00:00:00 Orders Only Doctor Unassigned, [place] [facility] 1.2.840.114 350.1.13.10 4.2.7.2.686 [id number] [facility] 2021-09-17 00:00:00 2021-09-17 00:00:00 Case Management Hetal Naa VARGAS 1..840.114 350.1.13.10 4.2.7.2.686 [id number] [facility] 2021-04-08 15:00:00 2021-04-08 15:00:00 Outpatient R CHALO HEATON [facility] [id number] [facility] 2021-03-04 15:00:00 2021-03-04 15:00:00 Outpatient R RADHAJUNE COLLINSTANY [facility] [id number] [facility] 2020-10-11 15:15:00 2020-10-11 15:15:00 Outpatient R AKINSIPECHIKIKATIE [facility] [id number] [facility] 2020-09-11 15:00:00 2020-09-11 15:00:00 Outpatient R AKINSIPECHIKIKATIE [facility] [id number] [facility] 2020-07-11 16:00:00 2020-07-11 16:00:00 Outpatient R AKINSIPECHIKIKATIE [facility] [id number] [facility] [facility] 2020-07-10 15:00:00 2020-07-10 15:00:00 Outpatient R [facility] [id number] [facility] 2020-06-20 08:15:00 2020-06-20 08:15:00 Outpatient R [facility] [id number] [facility] 2020-01-24 15:30:00 2020-01-24 15:30:00 Outpatient KATIE KENDALL [facility] [id number] [facility] Results Test Description Test Time Test Comments Results Result Co mments [facility] Specific [id number] 20:46:00* Test Item Value Reference Range Interpretation [...] = 3257) Trace Negative - Negati ve [facility] Notes Date/Time Note Provider Source 2024-02-24 15:54:46 Called pt, pt reports started cycle in the middle of pill back. Pt reports taking pills correctly, advised will take 2-3 pill packs for cycle to adjust. Advised pt to continue taking ocp. Pt verbalized understanding. Dahiana Oliveros RN 02/24/24 3:56 PM [facility] 2024-02-24 15:49:02 Pt is requesting call back about BC pills, states started cycle before it was time on her pills. Please call [phone] (home) NDERT ANGUS Yuan [facility] 2024-02-09 15:30:00 Addended by: HUNTER CARTAGENA on: 02/11/2024 12:46 PM Modules accepted: Orders [facility] 2023-09-21 14:32:36 Erna Villeda [id number] 09/21/23 Incoming call from patient after receiving a text message from [facility] regarding Well Women exam. Current overdue topics are as follows Health Maintenance Due Topic Date Due WELL CARE VISIT: 12-21 YEARS (yearly) Never done MENINGOCOCCAL B VACCINES (1 of 2 - Risk Bexsero 2-dose series) Never done SDOH Financial Resource Strain Never done SDOH Food Insecurity Never done SDOH Transportation Needs Never done HEPATITIS C (HCV) SCREEN Never done Cervical Cancer Screening Never done CHLAMYDIA SCREENING 09/02/2023 Incoming call from a patient who received a text for a Well Women exam. Patient was scheduled for a WWE on Saturday September 23, 2023 at 3:00pm and arrival at 2:45PM. Patient was given the date, time and location of the Well Women exam. Irina Trevino RN 09/21/2023 2:32 PM CTION THERAPIST Irina Trevino RN [facility]
[2024-12-15 11:22] LABS: Specific Gravity 1.026 (1.005-1.030)
[2024-12-15 11:23] LABS: Specific Gravity 1.026 (1.005-1.030); Sqamous Epithelial 20-50 /HPF (None Seen); Urine Bacteria <20 /HPF (<20); Urine Bilirubin NEGATIVE (Negative); Urine Blood Trace (Negative); Urine Clarity Extremely Turbid (Clear); Urine Color Yellow (Yellow); Urine Culture Reflex Order NOT NEEDED; Urine Glucose NEGATIVE (Negative); Urine Ketones NEGATIVE (Negative); Urine Microscopic Reflex YN ORDER UMIC; Urine Mucus 4+ /HPF (None Seen); Urine Nitrite NEGATIVE (Negative); Urine Protein TRACE (Negative); Urine Urobilinogen Normal (Normal)
--- NOTE | 2024-12-15 13:05 | RAD REPORT ---
EXAMINATION: US FIRST TRIMESTER TRANSVAGINAL WITH DOPPLER CLINICAL INDICATION: with pelvic pain TECHNIQUE: Real-time obstetrical ultrasonography of the maternal pelvis and first trimester was performed transvaginally. Color and spectral Doppler evaluation of the ovaries was performed. COMPARISON: No prior exam. FINDINGS: The uterus measures 7 x 4 x 5 The endometrial stripe measures 1 cm. A gestational sac within the endometrium is not seen. Right ovary normal in size and echotexture Left ovary normal in size and echotexture Right and left adnexa unremarkable No significant free fluid IMPRESSION: Non visualization of a gestational sac within the endometrium. This could be a viable intrauterine pr egnancy in which the gestational sac not seen secondary to the early gestation. Other considerations include an and even ectopic . This should be correlated clinically and with serial beta-hCG levels. Follow-up endovaginal sonogram in one week recommended for reevaluation
[2024-12-15 13:14] LABS: Absolute Eosinophils 0.1 K/uL (0-0.5); Absolute Lymphocytes (CBC) 2.9 K/uL (0.7-4.9); Absolute Monocytes 0.6 K/uL (0.1-1.3); Absolute Neutrophil 7.6 K/uL (1.8-8.0); Basophils % 0.4 % (0-1.3); Eosinophils % 1.2 % (0-4.4); Hematocrit 39.4 % (36.0-45.0); Hemoglobin 13.9 g/dL (12.0-15.0); Lymphocytes % 25.6 % (15.3-44.8); MCH 30.9 pg (27.0-35.0); MCHC 35.3 g/dL (32.0-36.0); MCV 87.6 fL (80-100); MPV 7.3 fL (7.6-11.3); Monocytes % 4.9 % (3.3-12.3); Neutrophils % 67.9 % (41.7-73.7); Nucleated Red Blood Cells % 0.1 % (0-0); Platelets 458 thou/uL (152-406); RBC Red Blood Cell Count 4.49 M/uL (3.86-4.86); Red Cell Distribution Width 12.6 % (12.1-15.2)
[2024-12-15 13:24] LABS: Albumin 4.3 g/dL (3.4-5.0); Albumin/Globulin Ratio 1.1 (1.1-1.8); Anion Gap 8.9 mEq/L (5.0-15.0); Bilirubin Total 0.4 mg/dL (0.2-1.0); Globulin 3.8 g/dL (2.3-3.5); Potassium 3.9 mEq/L (3.5-5.1); Protein, Total 8.1 g/dL (6.4-8.2)
--- NOTE | 2024-12-15 13:32 | EDPHYS ---
Physician Documentation [facility] Name: Erna Villeda Age: 24 yrs Sex: Female : 2000 Arrival Date: 12/15/2024 Time: 10:35 Bed Ultrasound Private MD: ED Physician Jaqueline Peralta HPI: 12/15 10:51 This 24 yrs old Female presents to ER via Ambulatory with complaints of sw6 Abdominal Pain, red discharge. 10:51 The patient presents from home for evaluation for pelvic pain for the past 3 days. No sw6 nausea or vomiting. No fevers or chills. No back pain. She also complains of some dark brown vaginal discharge. She reports her last menstrual period was in May 2024 however her menses are irregular and she denies being . She did have some ibuprofen for her pain yesterday and reports it helped for several hours. No dysuria. No prior abdominal surgeries. No history of high blood pressure or diabetes. Here for evaluation. 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 - Infectious Disease History:: Denies. - Social history:: Smoking status: Patient denies any tobacco usage or history of. ROS: 10:51 Positive for pelvic pain, vaginal bleeding, Negative for burning with urination, sw6 vaginal discharge, 10:51 Constitutional: Negative for fever, chills, and weight loss, Cardiovascular: Negative for chest pain, palpitations, and edema, Respiratory: Negative for shortness of breath, cough, wheezing, and pleuritic chest pain, Abdomen/GI: Negative for abdominal pain, nausea, vomiting, diarrhea, and constipation, 10:51 All other systems are negative, Exam: 10:51 Constitutional: This is a well developed, well nourished patient who is awake, alert, sw6 and in no acute distress. Chest/axilla: Normal chest wall appearance and motion. Nontender with no deformity. No lesions are appreciated. Cardiovascular: Regular rate and rhythm with a normal S1 and S2. No gallops, murmurs, or rubs. Normal PMI, no JVD. No pulse deficits. Respiratory: Lungs have equal breath sounds bilaterally, clear to auscultation and percussion. No rales, rhonchi or wheezes noted. No increased work of breathing, no retractions or nasal flaring. Abdomen/GI: Soft, non-tender, with normal bowel sounds. No distension or tympany. No guarding or rebound. No evidence of tenderness throughout. Back: No spinal tenderness. No costovertebral tenderness. Full range of motion. MS/ Extremity: Pulses equal, no cyanosis. Neurovascular intact. Full, normal range of motion. Neuro: Awake and alert, GCS 15, oriented to person, place, time, and situation. Cranial nerves II-XII grossly intact. Motor strength 5/5 in all extremities. Sensory grossly intact. Cerebellar exam normal. Normal gait. Psych: Awake, alert, with orientation to person, place and time. Behavior, mood, and affect are within normal limits. Vital Signs: 10:45 BP 133 / 91; Pulse 70; Resp 14; Pulse Ox 98% on R/A; ss 13:57 BP 131 / 71; Pulse 71; Resp 16; Temp 97.6; Pulse Ox 98% on R/A; ll1 MDM: 10:41 Medical Screening Exam initiated 10:51 Differential diagnosis: dysfunctional uterine bleeding, dysmenorrhea, ectopic sw6 , menorrhea, nonspecific abdominal pain, ovarian cyst, pelvic inflammatory disease, postcoital bleeding, urinary tract infection, vaginosis. Data reviewed: vital signs, nurses notes. 11:58 ED course: Her UPT is positive. Will obtain a transvaginal ultrasound.. 13:24 Data reviewed: lab test result(s), radiologic studies, ultrasound. ED course: The sw6 patient is doing well here in the ER. Her transvaginal ultrasound shows a thickened endometrial stripe as well as no free fluid and normal adnexa. Her beta-hCG has been sent and is pending. As she is with vaginal bleeding her diagnosis is a threatened miscarriage. She will need to follow-up with [facility] for continued management. Recommend she take vitamins daily. Her urinalysis does show leukocyte Estrace which we will treat with antibiotics given she is . She remained stable here in the ER and is okay for discharge home with PCP follow-up. 12/15 10:51 Order name: CBC with Diff; Complete Time: 13:26 12/15 13:26 Interpretation: Within normal limits. 12/15 10:51 Order name: CMP; Complete Time: 13:26 12/15 13:26 Interpretation: Within normal limits. 12/15 10:51 Order name: Lipase; Complete Time: 13:26 12/15 13:26 Interpretation: Within normal limits. 12/15 10:51 Order name: Test, Urine; Complete Time: 11:57 12/15 11:57 Interpretation: Abnormal: . 12/15 10:51 Order name: Urinalysis w/ reflexes; Complete Time: 11:57 12/15 13:29 Interpretation: Abnormal: Leukocyte esterase. 12/15 13:07 Order name: Beta hcg; Complete Time: 13:51 12/15 13:51 Interpretation: Within normal limits: HCGQ 109. 12/15 11:58 Order name: US Transvaginal Ob; Complete Time: 13:10 12/15 13:10 Interpretation: No acute disease. 12/15 10:51 Order name: IV Saline Lock; Complete Time: 12:50 12/15 10:51 Order name: Labs collected and sent; Complete Time: 12:50 Administered Medications: No medications were administered Disposition Summary: 12/15/24 13:31 Discharge Ordered Notes: Location: Home sw6 Problem: new sw6 Symptoms: are unchanged sw6 Condition: Stable sw6 Diagnosis - UTI/ Urinary tract infection, site not specified sw6 - threatened miscarriage sw6 Followup: sw6 - With: Chas Adams MD - When: 2 - 3 days - Reason: Discharge Instructions: - Discharge Summary Sheet sw6 - Urinary Tract Infection, Adult sw6 - Threatened Miscarriage, [id number] sw6 Forms: - Medication Reconciliation Form 6 - Antibiotic Education sw6 - Prescription Opioid Use sw6 - Patient Portal Instructions sw6 - Leadership Thank You Letter 6 Prescriptions: - Macrobid 100 mg Oral Capsule - take 1 capsule ORAL route every 12 hours for 10 days; 20 capsule; Refills: 0, sw6 Product Selection Permitted Signatures: Dispatcher [employer] Arabella Barker RN RN ss Kathy Corona RN RN ll1 Jaqueline Peralta MD MD sw6 Corrections: (The following items were deleted from the chart) 13:30 13:24 ED course: The patient is doing well here in the ER. Her transvaginal ultrasound sw6 shows a thickened endometrial stripe as well as no free fluid and normal adnexa. Her beta-hCG has been sent and is pending. As she is with vaginal bleeding her diagnosis is a threatened miscarriage. She will need to follow-up with [facility] for continued management. Recommend she take vitamins daily. She remained stable here in the ER and is okay for discharge home with PCP follow-up.. sw6
--- NOTE | 2024-12-15 13:32 | ER ---
Nurse's Notes [facility] Name: Erna Villeda Age: 24 yrs Sex: Female : 2000 Arrival Date: 12/15/2024 Time: 10:35 Bed Ultrasound Private MD: Diagnosis: UTI/ Urinary tract infection, site not specified;threatened miscarriage Presentation: 12/15 10:45 Chief complaint: Patient states: Suprapubic discomfort with dark brown discharge that ss began 3 days ago. Coronavirus screen: Client denies travel out of the [place] in the last 14 days. Ebola Screen: Patient denies exposure to infectious person. Patient denies travel to an Ebola-affected area in the 21 days before illness onset. Initial Sepsis Screen: Does the patient meet any 2 criteria? No. Patient's initial sepsis screen is negative. Does the patient have a suspected source of infection? No. Patient's initial sepsis screen is negative. Risk Assessment: Do you want to hurt yourself or someone else? Patient reports no desire to harm self or others. Onset of symptoms was December 12, 2024. 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 - Infectious Disease History:: Denies. - Social history:: Smoking status: Patient denies any tobacco usage or history of. Screenin:[address] [facility] ED Fall Risk Assessment (Adult) History of falling in the last 3 months, ll1 including since admission No falls in past 3 months (0 pts) Confusion or Disorientation No (0 pts) Intoxicated or Sedated No (0 pts) Impaired Gait No (0 pts) Mobility Assist Device Used No (0 pt) Altered Elimination No (0 pt) Score/Fall Risk Level 0 - 2 = Low Risk Maintained a safe environment, Hourly rounding (assess needs \T\ fall precautionary measures) done. Abuse screen: Denies threats or abuse. Nutritional screening: No deficits noted. Tuberculosis screening: No symptoms or risk factors identified. Assessment: 12:51 General: Appears in no apparent distress. Behavior is calm, cooperative, appropriate ld1 for age. Pain: Denies pain. : Reports vaginal bleeding that is brown, spotty. 13:57 Reassessment: No changes from previously documented assessment. Patient and/or family ll1 updated on plan of care and expected duration. Pain level reassessed. Patient is alert, oriented x 3, equal unlabored respirations, skin warm/dry/pink. 13:58 GI: Bowel sounds present X 4 quads. Abd is soft and non tender X 4 quads. ll1 Vital Signs: 10:45 BP 133 / 91; Pulse 70; Resp 14; Pulse Ox 98% on R/A; ss 13:57 BP 131 / 71; Pulse 71; Resp 16; Temp 97.6; Pulse Ox 98% on R/A; ll1 ED Course: 10:39 Patient arrived in ED. al6 10:40 Jaqueline Peralta MD is Attending Physician. sw6 10:47 Triage completed. ss 10:47 Arm band placed on right wrist. ss 12:00 Patient has correct armband on for positive identification. Provided Education on: ER ll1 procedures and process. 12:33 Transvaginal Ob In Process Unspecified. EDMS 12:33 Kathy Corona RN is Primary Nurse. ll1 12:50 Lipase Sent. ld1 12:50 CMP Sent. ld1 12:50 CBC with Diff Sent. ld1 12:50 Initial lab(s) drawn, by ut, sent to lab. Missed attempt(s): 22 gauge in left ld1 antecubital area. Bleeding controlled, band aid applied, catheter tip intact. 13:31 Chas Adams MD is Referral Physician. sw6 13:57 No provider procedures requiring assistance completed. Patient did not have IV access ll1 during this emergency room visit. Administered Medications: No medications were administered Medication: 14:06 VIS not applicable for this client. ll1 Outcome: 13:31 Discharge ordered by . sw6 13:58 Discharged to home ambulatory, ll1 13:58 Condition: stable 13:58 Discharge instructions given to patient, Instructed on discharge instructions, follow up and referral plans. medication usage, Demonstrated understanding of instructions, follow-up care, medications, Prescriptions given X 1, 14:07 Patient left the ED. ll1 Signatures: Dispatcher [employer] EDNY Arabella Amaya RN RN ss Kathy Corona RN RN ll1 Grace Bolivar RN RN ld1 Jaqueline Peralta MD MD sw6 Astrid [id number] Corrections: (The following items were deleted from the chart) 14:07 13:57 BP 131 / 71; Pulse 71bpm; Resp 16bpm; Pulse Ox 98% RA; ll1 ll1
[2024-12-15 14:28] VITALS: O2SAT 98
[2024-12-15 14:33] VITALS: BP 131/71; TEMP 97.6
== END 2024-12-15 14:07 | disposition home or self-care (01) ==
LOC: ER 10:35
DX: O20.0 Threatened abortion (principal); O23.40 Unspecified infection of urinary tract in pregnancy, unspecified trimester; N39.0 Urinary tract infection, site not specified; Z3A.00 Weeks of gestation of pregnancy not specified
CPT/HCPCS: 36415; 76817; 80053; 81001; 81025; 83690; 84702; 85025; 99283

== ENCOUNTER 2024-12-22 19:43 | Emergency (ER) | payer SELFPAY ==
--- OUTSIDE RECORDS SUMMARY | 2024-12-22 19:47 | XMS REPORT | Continuity of Care Document ---
Author Name Unknown Address [address] [place] [address] [facility] Address [address] [place] [address] Care Team Providers Care Financial Reporting Advisor Name Role Phone Katie Khan Primary Care Physicia n JAQUELINE GARCIA Attending Clinician UnavailJAQUELINE Rubio Attending Clinician UnavailAntione Mayer MD Attending Clinician [phone] Jaqueline Garcia DO Attending Clinician [phone] MARITZA ALVARADO Attending Clinician Unavailable MARITZA ALVARADO Attending Clinician Unavailable HUNTER CARTAGENA Attending Clinician Unavailable Hunter Valadez Attending Clinician [phone] ANTHONY ALEJANDRO Attending Clinician UnavailKatie Martinez Attending Clinician + [facility] Unavailable Sherif Cartagena MD Attending Clinician [phone] SHERIF CARTAGENA Attending Clinician Unavailable MALA MCCLOUD Attending Clinician UnavailIrina Roberts RN Attending Clinician Unav KATIE Castle Attending Clinician Unavail ETHEL Paredes Attending Clinician UnavailETHEL Mccabe Attending Clinician Unavaila daniel OBI-JEF, SAMPSON Attending Clinician Unavailab joey OBI-JEF SAMPSON Attending Clinician Unavailab joey Doctor Unassigned, [place] Attending Clinician U Naa Ratliff LMSW Attending Clinician CHALO Bullock Attending Clinician VICTORIA Anderson Attending Clinician Unavailabl e Payers Payer Name Policy Type Policy Number Effective Date Expirati on Date Source [facility] ROSIE [id number] 2024 00:00:00 Problems Condition Name Condition Details Condition Category Status Onset Date Resolution Date Last Treatment Date Treating Clinician Comments Source Vitamin D deficiency Vitamin D deficiency Disease Active 03-05 00:00: 00 [facility] Anxiety and depression Anxiety and depression Disease Active 03-05 00:00: 00 [facility] Irritabili ty and anger Irritabili ty and anger Disease Active 03-05 00:00: 00 [facility] Obesity (BMI 30-39.9) Obesity (BMI 30-39.9) Disease Active 03-05 00:00: 00 [facility] Other general counseling and advice for contracept nancie management Other general counseling and advice for contracept nancie management Disease Active 2018-08 00:00: 00 [facility] Ingrown hair Ingrown hair Disease Resolve d 09-19 00:00: 00 2024-02-11 00:00:00 2024-02-11 07:26:29 [facility] Nexplanon in place Nexplanon in place Disease Resolve d 2018-08 00:00: 00 2022-03-19 00:00:00 2022-03-19 09:01:02 [facility] Routine follow-up Routine follow-up Disease Resolve d 2018-08 00:00: 00 2022-03-19 00:00:00 2022-03-19 09:00:57 [facility] Single liveborn Single liveborn Disease Resolve d 05-15 00:00: 00 2019-06-06 00:00:00 2019-06-06 15:41:33 [facility] Pre-eclamp shelbi, antepartum Pre-eclamp shelbi, antepartum Disease Resolve d 05-15 00:00: 00 2019-06-06 00:00:00 2019-06-06 15:41:30 [facility] (spontaneo us vaginal delivery) (spontaneo us vaginal delivery) Disease Resolve d - 00:00: 00 2019-06-06 00:00:00 2019-06-06 15:41:35 [facility] Iron deficiency anemia due to chronic blood loss Iron deficiency anemia due to chronic blood loss Disease Resolve d - 00:00: 00 2019-06-06 00:00:00 2019-06-06 15:41:29 [facility] Second degree perineal laceration Second degree perineal laceration Disease Resolve d 05-15 00:00: 00 2019-06-06 00:00:00 2019-06-06 15:41:32 [facility] 39 weeks gestation of 39 weeks gestation of Disease Resolve d 05-14 00:00: 00 2019-06-06 00:00:00 2019-06-06 15:41:26 [facility] Vaginal bleeding in Vaginal bleeding in Disease Resolve d 5-09 00:00: 00 2019-06-06 00:00:00 2019-06-06 15:41:24 [facility] Abnormal maternal glucose tolerance, antepartum Abnormal maternal glucose tolerance, antepartum Disease Resolve d 3-21 00:00: 00 2019-06-06 00:00:00 2019-06-06 15:41:27 [facility] Supervisio n of high-risk of young primigravi da Supervisio n of high-risk of young primigravi da Disease Resolve d 3-20 00:00: 00 2019-06-06 00:00:00 2019-06-06 15:41:34 [facility] Allergies, Adverse Reactions, Alerts Allergy Name Allergy Type Status Severity Reaction(s) Onset Date Inactive Date Treating Clinician Comments Source NO KNOWN ALLERGIE S Drug Class Active [facility] Social History Social Habit Start Date Stop Date Quantity Comments Source [facility] ASSERTION Not [facility] History SDOH Alcohol Frequency [facility] History SDOH Alcohol Std Drinks [facility] History SDOH Alcohol Binge [facility] Alcoholic beverage intake 2024-12-19 00:00:00 2024-12-19 00:00:00 Current drinker of alcohol (finding) [facility] History of Social function 2024-02-09 00:00:00 2024-02-09 00:00:00 [facility] Tobacco use and exposure 2023-04-29 00:00:00 2023-04-29 00:00:00 Smokeless tobacco non-user [facility] Alcohol intake 2023-04-29 00:00:00 2023-04-29 00:00:00 Current drinker of alcohol (finding) [facility] Exposure to SARS-CoV-2 (event) 2022-08-23 00:00:00 2022-09-02 09:26:00 Not sure [facility] Alcohol Comment 2021-03-04 00:00:00 2021-03-04 00:00:00 occassional/rare [facility] Sex assigned at 2001 00:00:00 2000 00:00:00 [facility] Smoking Status Start Date Stop Date Source Never smoked tobacco [facility] Medications Ordered Medication Name Filled Medication Name Start Date Stop Date Current Medication? Ordering Clinician Indication Dosage Frequency Signature (SIG) Comments Components Source metroNIDAZO LE 500 mg tablet 02-11 00:00: 00 Yes [id number] 500mg Take 1 tablet by mouth every 12 (twelve) hours. [facility] Nitrofurant oin&Nit. Macrocryst (MACROBID) 100 mg capsule 02-10 00:00: 00 Yes [id number] 100mg Take 1 capsule by mouth in the morning and 1 capsule in the evening. [facility] levonorgest rel-ethinyl estradiol 0.1-20 mg-mcg per tablet 02-08 00:00: 00 Yes [id number] 1{tbl} Take 1 tablet by mouth in the morning. [facility] SERTraline 25 mg tablet 04-29 00:00: 00 Yes [id number] 25mg Take 1 tablet by mouth in the morning. [facility] levonorgest rel-ethinyl estradiol (SRONYX) 0.1-20 mg-mcg per tablet 05-19 00:00: 00 02-08 00:00 :00 No [id number] 1{tbl} Take 1 tablet by mouth in the morning. [facility] azithromyci n 500 mg tablet 03-21 00:00: 00 03-22 04:59 :00 No [id number] 1000mg Take 2 tablets by mouth once now for 1 dose. [facility] levonorgest rel-ethinyl estradiol (SRONYX) 0.1-20 mg-mcg per tablet 03-19 00:00: 00 05-14 00:00 :00 No [id number] 1{tbl} Take 1 tablet by mouth in the morning. [facility] Immunizations Ordered Immunization Name Filled Immunization Name Date Status Comments Source Influenza Virus Vaccine Quad .5 mL IM 6+ MO (FLUZONE/FLULAVAL/F LUARIX) 2024-02-24 00:00:00 Completed [facility] TDAP (ADACEL) VACCINE 2024-02-24 00:00:00 Completed [facility] HPV 2024-02-24 00:00:00 Completed [facility] HPV9 2024-02-24 00:00:00 Completed [facility] Influenza Virus Vaccine Quad .5 mL IM 6+ MO (FLUZONE/FLULAVAL/F LUARIX) 2023-09-21 00:00:00 Completed [facility] TDAP (ADACEL) VACCINE 2023-09-21 00:00:00 Completed [facility] HPV 2023-09-21 00:00:00 Completed [facility] HPV9 2023-09-21 00:00:00 Completed [facility] Influenza Virus Vaccine Quad .5 mL IM 6+ MO (FLUZONE/FLULAVAL/F LUARIX) 2022-09-04 00:00:00 Completed [facility] TDAP (ADACEL) VACCINE 2022-09-04 00:00:00 Completed [facility] HPV 2022-09-04 00:00:00 Completed [facility] HPV9 2022-09-04 00:00:00 Completed [facility] Influenza Virus Vaccine Quad .5 mL IM 6+ MO 2020-07-11 00:00:00 Completed [facility] Influenza Virus Vaccine Quad .5 mL IM 6+ MO 2020-07-11 00:00:00 Completed [facility] Influenza Virus Vaccine Quad .5 mL IM 6+ MO 2020-07-11 00:00:00 Completed [facility] Influenza Virus Vaccine Quad .5 mL IM 6+ MO 2020-07-11 00:00:00 Completed [facility] Influenza Virus Vaccine Quad .5 mL IM 6+ MO 2020-07-11 00:00:00 Completed [facility] Influenza Virus Vaccine Quad .5 mL IM 6+ MO 2020-07-11 00:00:00 Completed [facility] Influenza Virus Vaccine Quad .5 mL IM 6+ MO 2020-07-11 00:00:00 Completed [facility] Influenza Virus Vaccine Quad .5 mL IM 6+ MO (FLUZONE/FLULAVAL/F LUARIX) 2020-07-11 00:00:00 Completed [facility] Influenza Virus Vaccine Quad .5 mL IM 6+ MO (FLUZONE/FLULAVAL/F LUARIX) 2020-07-11 00:00:00 Completed [facility] Influenza Virus Vaccine Quad .5 mL IM 6+ MO (FLUZONE/FLULAVAL/F LUARIX) 2020-07-11 00:00:00 Completed HPV9 2019-05-16 00:00:00 Completed [facility] HPV9 2019-05-16 00:00:00 Completed [facility] HPV9 2019-05-16 00:00:00 Completed [facility] HPV9 2019-05-16 00:00:00 Completed [facility] HPV9 2019-05-16 00:00:00 Completed [facility] HPV9 2019-05-16 00:00:00 Completed [facility] HPV9 2019-05-16 00:00:00 Completed [facility] HPV9 2019-05-16 00:00:00 Completed [facility] HPV9 2019-05-16 00:00:00 Completed [facility] TDAP (ADACEL) VACCINE 2019-03-07 00:00:00 Completed [facility] TDAP (ADACEL) VACCINE 2019-03-07 00:00:00 Completed [facility] TDAP (ADACEL) VACCINE 2019-03-07 00:00:00 Completed [facility] TDAP (ADACEL) VACCINE 2019-03-07 00:00:00 Completed [facility] TDAP (ADACEL) VACCINE 2019-03-07 00:00:00 Completed [facility] TDAP (ADACEL) VACCINE 2019-03-07 00:00:00 Completed [facility] TDAP (ADACEL) VACCINE 2019-03-07 00:00:00 Completed [facility] TDAP (ADACEL) VACCINE 2019-03-07 00:00:00 Completed [facility] TDAP (ADACEL) VACCINE 2019-03-07 00:00:00 Completed [facility] Influenza Virus Vaccine Quad .5 mL IM 6+ MO 2018-11-10 00:00:00 Completed [facility] Influenza Virus Vaccine Quad .5 mL IM 6+ MO 2018-11-10 00:00:00 Completed [facility] Influenza Virus Vaccine Quad .5 mL IM 6+ MO 2018-11-10 00:00:00 Completed [facility] Influenza Virus Vaccine Quad .5 mL IM 6+ MO 2018-11-10 00:00:00 Completed [facility] Influenza Virus Vaccine Quad .5 mL IM 6+ MO 2018-11-10 00:00:00 Completed [facility] Influenza Virus Vaccine Quad .5 mL IM 6+ MO 2018-11-10 00:00:00 Completed [facility] Influenza Virus Vaccine Quad .5 mL IM 6+ MO 2018-11-10 00:00:00 Completed [facility] Influenza Virus Vaccine Quad .5 mL IM 6+ MO (FLUZONE/FLULAVAL/F LUARIX) 2018-11-10 00:00:00 Completed [facility] Influenza Virus Vaccine Quad .5 mL IM 6+ MO (FLUZONE/FLULAVAL/F LUARIX) 2018-11-10 00:00:00 Completed [facility] HPV 2015-04-17 00:00:00 Completed [facility] HPV 2015-04-17 00:00:00 Completed [facility] HPV 2015-04-17 00:00:00 Completed [facility] HPV 2015-04-17 00:00:00 Completed [facility] HPV 2015-04-17 00:00:00 Completed [facility] HPV 2015-04-17 00:00:00 Completed [facility] HPV 2015-04-17 00:00:00 Completed [facility] HPV 2015-04-17 00:00:00 Completed [facility] HPV 2015-04-17 00:00:00 Completed [facility] Vital Signs Vital Name Observation Time Observation Value Comments S ource Systolic blood pressure 2024-12-20 03:05:00 126 mm[Hg] [facility] Diastolic blood pressure 2024-12-20 03:05:00 76 mm[Hg] [facility] Heart rate 2024-12-20 03:05:00 86 [facility] Body temperature 2024-12-20 03:05:00 37 Felipa [facility] Respiratory rate 2024-12-20 03:05:00 16 /min [facility] Oxygen saturation in Arterial blood by Pulse oximetry 2024-12-20 03:05:00 99 /min [facility] Body height 2024-12-20 01:04:00 144.8 cm [facility] Body weight 2024-12-20 01:04:00 74.844 kg [facility] BMI 2024-12-20 01:04:00 35.71 kg/m2 [facility] Systolic blood pressure 2024-06-22 15:23:00 126 mm[Hg] [facility] Diastolic blood pressure 2024-06-22 15:23:00 81 mm[Hg] [facility] Heart rate 2024-06-22 15:23:00 80 /min [facility] Body temperature 2024-06-22 15:23:00 36.11 Felipa [facility] Respiratory rate 2024-06-22 15:23:00 18 /min [facility] Body height 2024-06-22 15:23:00 144.8 cm [facility] Body weight 2024-06-22 15:23:00 70.308 kg [facility] BMI 2024-06-22 15:23:00 33.54 kg/m2 [facility] Systolic blood pressure 2024-02-09 20:44:00 114 mm[Hg] [facility] Diastolic blood pressure 2024-02-09 20:44:00 70 mm[Hg] [facility] Heart rate 2024-02-09 20:44:00 67 /min Unive [facility] Body temperature 2024-02-09 20:44:00 36.56 Felipa [facility] Respiratory rate 2024-02-09 20:44:00 18 /min [facility] Body weight 2024-02-09 20:44:00 69.4 kg [facility] BMI 2024-02-09 20:44:00 33.11 kg/m2 [facility] Systolic blood pressure 2023-04-29 18:32:00 122 mm[Hg] [facility] Diastolic blood pressure 2023-04-29 18:32:00 77 mm[Hg] [facility] Heart rate 2023-04-29 18:32:00 77 /min [facility] Body temperature 2023-04-29 18:32:00 36.33 Felipa [facility] Respiratory rate 2023-04-29 18:32:00 20 /min [facility] Body height 2023-04-29 18:32:00 144.8 cm [facility] Body weight 2023-04-29 18:32:00 62.143 kg [facility] BMI 2023-04-29 18:32:00 29.65 kg/m2 [facility] Oxygen saturation in Arterial blood by Pulse oximetry 2023-04-29 18:32:00 97 /min [facility] Systolic blood pressure 2022-09-02 15:22:00 117 mm[Hg] [facility] Diastolic blood pressure 2022-09-02 15:22:00 77 mm[Hg] [facility] Heart rate 2022-09-02 15:22:00 63 /min [facility] Body temperature 2022-09-02 15:22:00 36.17 Felipa [facility] Respiratory rate 2022-09-02 15:22:00 20 /min [facility] Body height 2022-09-02 15:22:00 144.8 cm [facility] Body weight 2022-09-02 15:22:00 64.774 kg [facility] BMI 2022-09-02 15:22:00 30.90 kg/m2 [facility] Procedures Procedure Date / Time Performed Performing Clinicia n Source POCT TEST 2024-12-20 01:38:00 Marimar Garcia ra [facility] TOTAL BETA HCG ASSAY 2024-12-20 01:37:00 Edgar Garcia [facility] POCUS OB US ABD LIMITED 2024-12-20 01:08:25 Jaqueline Garcia [facility] PAP SMEAR-LIQUID BASED-CP 2024-02-09 21:49:00 Hunter Cartagena [facility] URINE CULTURE 2024-02-09 21:48:00 [facility] POCT TEST 2024-02-09 20:46:00 Hunter Cartagena [facility] POCT URINALYSIS W/O SPECIFIC GRAVITY 2024-02-09 20:46:00 Hunter Cartagena [facility] ASSIGNMENT OF BENEFITS 2023-04-29 18:28:07 Docto r Unassigned, [place] [facility] Encounters Start Date/Time End Date/Time Encounter Type Admission Type Attending [facility] Care Facility Care Department Encounter ID Source 2024-12-19 20:00:00 2024-12-19 22:08:00 Emergency X JAQUELINE GARCIA [facility] ERT [id number] [facility] 2024-12-19 20:00:00 2024-12-19 22:08:00 Emergency Antione Cr Sandra J [facility] [id number] 350.1.13.10 [id number] [id number] [facility] 2024-11-30 10:30:00 2024-11-30 10:30:00 Outpatient R JENNY MARTIZA ALVARADOALMARITZA [facility] [id number] [facility] 2024-06-22 10:00:00 2024-06-22 10:54:56 Outpatient R HUNTER CARTAGENA [facility] [id number] [facility] 2024-06-22 10:00:00 2024-06-22 10:54:56 Office Visit Hunter Cartagena [facility] OPERATOR INSULATION [facility]ILD [facility] .840.114 350.1.13.10 [id number] [id number] [facility] 2024-05-03 16:00:00 2024-05-03 16:00:00 Outpatient R HUNTER CARTAGENA [facility] [id number] [facility] 2024-03-07 09:15:00 2024-03-07 09:15:00 Outpatient R ANTHONY ALEJANDRO [facility] [id number] [facility] 2024-02-24 00:00:00 2024-02-24 15:58:32 Telephone Katie Reyes [facility] OPER[facility] INSULATION [facility]ILD [facility] .840.114 350.1.13.10 4.2.7.2.686 [id number] [facility] 2024-02-12 00:00:00 2024-02-12 08:41:56 Case Management Hnuter Cartagena [facility] ..840.114 350.1.13.10 4.2.7.2.686 [id number] [facility] 2024-02-11 14:45:00 2024-02-11 14:45:00 Supervisor [facility] INSULATION [facility]ILD [facility] 1.840.114 350.1.13.10 4.2.7.2.686 [id number] [facility] 2024-02-11 14:45:00 2024-02-11 14:43:55 Outpatient R SHERIF CARTAGENA SARAH [facility] [id number] [facility] 2024-02-09 15:30:00 2024-02-09 16:49:28 Outpatient R OSIEL HUNTER [facility] [id number] [facility] 2024-02-09 15:30:00 2024-02-09 16:49:28 Office Visit OsielHunter [facility] OPER[facility] INSULATION [facility] [id number] 350.1.13.10 4.2.7.2.686 [id number] [facility] 2023-09-23 15:00:00 2023-09-23 15:00:00 Outpatient R MALA MCCLOUD [facility] [id number] [facility] 2023-09-21 00:00:00 2023-09-21 00:00:00 Telephone Irina Trevino [id number] 350.1.13.10 4.2.7.2.686 [id number] [facility] 2023-06-17 14:30:00 2023-06-17 14:30:00 Outpatient R KATIE REYES [facility] [id number] [facility] 2023-06-02 14:30:00 2023-06-02 14:30:00 Outpatient R ETHEL BENZ CHERYAL [facility] [id number] [facility] 2023-05-13 13:20:00 2023-05-13 13:20:00 Outpatient R OBI-JEF , SAMPSON OBI-Anabella FUCHSZOMA [facility] [id number] [facility] 2023-04-29 15:20:00 2023-04-29 15:20:00 Outpatient R OBI-JEF , SAMPSON OBI-JEF , SAMPSON [facility] [id number] [facility] 2023-04-29 13:20:00 2023-04-29 14:00:56 Outpatient R OBI-JEF , SAMPSON OBI-JEF , SAMPSON [facility] [id number] [facility] 2023-04-29 13:20:00 2023-04-29 14:00:56 [facility]..840.114 350.1.13.10 4.2.7.2.686 [id number] [facility] 2023-04-29 00:00:00 2023-04-29 00:00:00 Orders Only Doctor Unassigned, [place] [facility] 1..840.114 350.1.13.10 4.2.7.2.686 [id number] [facility] 2023-03-20 14:00:00 2023-03-20 14:00:00 Outpatient R KATIE REYES [facility] [id number] [facility] 2023-02-06 17:09:18 2023-02-06 17:09:[address] [facility] [id number] 0616 Bhaskar Zapien 2022-09-04 00:00:00 2022-09-04 00:00:00 Patient Secure Msg Katie Reyes [facility] [employer] [facility] MATERNAL & [facility]ILD [facility] ..840.114 350.1.13.10 4.2.7.2.686 [id number] [facility] 2022-09-03 00:00:00 2022-09-03 00:00:00 Telephone Katie Reyes [facility] [employer] [facility] MATERNAL & CHILD [facility] 840.114 350.1.13.10 4.2.7.2.686 [id number] [facility] 2022-09-02 09:15:00 2022-09-02 10:00:59 Outpatient R KATIE REYES [facility] [id number] [facility] 2022-09-02 09:15:00 2022-09-02 10:00:59 Office Visit Katie Reyes [facility] [employer] [facility] & CHILD [facility] .840.114 350.1.13.10 4.2.7.2.686 [id number] [facility] 2022-07-31 09:45:00 2022-07-31 09:45:00 Outpatient R MALA MCCLOUD [facility] [id number] [facility] 2022-06-06 13:30:00 2022-06-06 13:30:00 Outpatient R KATIE REYES [facility] [id number] [facility] 2022-06-02 08:15:00 2022-06-02 08:15:00 Outpatient R KATIE REYES [facility] [id number] [facility] 2022-05-14 00:00:00 2022-05-14 00:00:00 Refill Katie Reyes [facility] [employer] [facility] CHILD [facility] 840.114 350.1.13.10 4.2.7.2.686 [id number] [facility] 2022-05-01 13:45:00 2022-05-01 13:45:00 Outpatient R [facility] [id number] [facility] 2022-05-01 00:00:00 2022-05-01 00:00:00 Telephone Katie Reyes [facility] [employer] & CHILD [facility] .840.114 350.1.13.10 4.2.7.2.686 [id number] [facility] 2022-04-30 00:00:00 2022-04-30 00:00:00 Telephone Katie Reyes [facility] [employer] [facility] CHILD [facility] 1.2.840.114 350.1.13.10 4.2.7.2.686 [id number] [facility] 2022-04-10 00:00:00 2022-04-10 00:00:00 Refill Katie Reyes [facility] [employer] [facility] CHILD [facility] 1.2.840.114 350.1.13.10 4.2.7.2.686 [id number] [facility] 2022-03-21 00:00:00 2022-03-21 00:00:00 Telephone Katie Reyes [facility] [facility] 1.2.840.114 350.1.13.10 4.2.7.2.686 [id number] [facility] 2022-03-21 00:00:00 2022-03-21 00:00:00 Telephone Katie Reyes [facility] [employer] [facility] 1.2.840.114 350.1.13.10 4.2.7.2.686 [id number] [facility] 2022-03-19 08:15:00 2022-03-19 09:30:09 [facility] [id number] 2022-03-19 08:15:00 2022-03-19 09:30:09 Office Visit Katie Reyes [facility] [employer] [facility] CHILD [facility] 1.2.840.114 350.1.13.10 4.2.7.2.686 [id number] [facility] 2022-03-19 08:15:00 2022-03-19 08:15:00 Outpatient R KATIE REYES [facility] [id number] [facility] 2022-03-19 00:00:00 2022-03-19 00:00:00 Orders Only Doctor Unassigned, [place] [facility] 1..840.114 350.1.13.10 4.2.7.2.686 [id number] [facility] 2021-09-17 00:00:00 2021-09-17 00:00:00 Case Management Naa Fong 1..840.114 350.1.13.10 4.2.7.2.686 [id number] [facility] 2021-04-08 15:00:00 2021-04-08 15:00:00 Outpatient R CHALO HEATON [facility] [id number] [facility] 2021-03-04 15:00:00 2021-03-04 15:00:00 Outpatient R VICTORIA GARCIA [facility] [id number] [facility] 2020-10-11 15:15:00 2020-10-11 15:15:00 Outpatient R KATIE REYES [facility] [id number] [facility] 2020-09-11 15:00:00 2020-09-11 15:00:00 Outpatient R KATIE REYES [facility] [id number] [facility] 2020-07-11 16:00:00 2020-07-11 16:00:00 Outpatient R KATIE REYES [facility] [id number] [facility] 2020-07-10 15:00:00 2020-07-10 15:00:00 Outpatient R KATIE REYES [facility] [id number] [facility] 2020-06-20 08:15:00 2020-06-20 08:15:00 Outpatient R DERRICK KATIE [facility] [id number] [facility] 2020-01-24 15:30:00 2020-01-24 15:30:00 Outpatient KATIE KENDALL [facility] [id number] [facility] Results Test Description Test Time Test Comments Results Resul t Comments Source POCUS OB US ABD Limited 2024-11-23 9 02:34:20 Study Date and Time: 2024-12-19 20:08Study Author: Jaqueline Garcia OB - TAUS:Indications: ? ?Indications for this focused Ultrasound:: Positive Hcg, Vaginal bleeding ? ?Other (answer below): N/AViews Obtained: ? ?The following structures were examined from a transabdominal approach: Transverse uterus and Vesicouterine/Recto uterine Spaces, Sagittal uterus and Vesicouterine/Recto uterine Spaces, Right Adnexa, Left Adnexa ? ?Other views: N/AUterine Findings: ? ?Uterus: N/A ? ?Vesicouterine/Rect outerine spaces: No fluid ? ?Intrauterine : Absent ? ?Findings visualized to confirm IUP: N/A ? ?FHR (bpm): N/A ? ?Other: N/ARight Adnexa: ? ?The right adnexa was visualized with the following findings:: Normal ? ?Other: N/A ? ?Spectral doppler flow: N/A ? ?Color Doppler flow: N/A ? ?Other right adnexal findings: N/ALeft Adnexa: ? ?The left adnexa was visualized with the following findings:: Normal ? ?Other: N/A ? ?Spectral doppler flow: N/A ? ?Color Doppler flow: N/AInterpretation: ? ?Images above were diagnostic for the following findings: No definitive intrauterine ? ?Other (answer below): N/A ? ?Other uterine or adnexal interpretation: N/AConfirmatory Study: ? ?What confirmatory study was performed during ED patient evaluation?: No additional imaging ordered ? ?Confirmatory study findings/comments: N/A Signed by Jaqueline Garcia on 2024-12-19 21:34 [facility] [id number] 20:46:00* Test Item Value Reference Range Interpretation Comme nts POCT PREG (test code = 1605) Negative On board controls acceptable with C Line (test code = 3574) Yes POCT PREG LOT # (test code = 3575) POCT PREG TEST DATE ( test code = 3576) [facility] Specific [id number] 20:46:00* Test Item Value Reference Range Interpretation [...] = 3257) Trace Negative - Negati ve [facility] Notes Date/Time Note Provider Source 2024-12-19 22:07:33 Pt given printed and verbal discharge instructions regarding bleeding during early , encouraged hydration, Pt verbalized understanding of instructions, pt awake alert oriented, resp reg unlabored, skin w/d, color appropriate for race, moves all ext well,pt encouraged to follow up with pcp and [employer] Advised to seek medical attention for new/prolonged/worsening of symptoms, Awake, alert oriented, resp reg unlabored, skin w/d, pt leaving amb with steady gait, in no apparent distress Jones Stoddard RN [facility] 2024-12-19 20:00:53 Patient arrived ambulatory to ED c/o vagina bleeding that started today. 0 pads soaked today. LMP was May. No control taken at this time. Patient found out that she was on the . States feeling abdominal pressure when sitting down. Stats having mucous discharge with the bleeding. 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 She reports the bleeding is light and she has no passage of clots or tissue. She reports she has a history of irregular menstrual periods and her last period was in May 2024. She reports she checked a test on the of this month and reports it was positive. That makes her 2 para 1-0-0-1. She is unsure how far along she is. She has started taking vitamins. No abdominal pain or cramping. No dysuria or hematuria. No nausea or vomiting. Here for evaluation. Past Medical History/Immunizations: Past Medical History: Diagnosis Date Abnormal maternal glucose tolerance, antepartum 11/11/2018 ADHD (attention deficit hyperactivity disorder) Anxiety and depression 03/05/2021 Dc'd meds 2022, reports resolved. Iron deficiency anemia due to chronic blood loss 05/15/2019 Pre-eclampsia, antepartum 05/15/2019 Tetanus received in last 5 years: Unknown Allergies: No Known Allergies Past Social History: Tobacco Use Never smoked or used smokeless tobacco. Vaping Use Never used Alcohol Use Yes. Comments: occassional/rare Drug Use No. Sexual Activity Sexually active; Partners: Male; Control/Protection: None. Comments: last intercourse: 02/03/2024 Past Surgical History: History reviewed. No pertinent surgical history. Review of Systems: Review of Systems Constitutional: Negative for chills and fever. Respiratory: Negative for cough and shortness of breath. Cardiovascular: Negative for chest pain. Gastrointestinal: Negative for abdominal pain, nausea and vomiting. Genitourinary: Positive for vaginal bleeding. Negative for dysuria. Musculoskeletal: Negative for arthralgias, neck pain and neck stiffness. Skin: Negative for wound. Neurological: Negative for dizziness. Psychiatric/Behavioral: Negative for agitation. Endocrine: Negative for goiter. Physical Exam: ED Triage Vitals [12/19/242003] Weight 74.8 kg (165 lb) Actual or estimated Estimated by patient/family report Height 1.448 m (4' 9") BP 137/81 Pulse 91 Resp 16 Temp 37.1 ?C (98.8 ?F) Temp source Oral SpO2 98 % Measured on Room air Physical Exam Vitals and nursing note reviewed. Constitutional: Appearance: Normal appearance. She is obese. HENT: Head: Normocephalic and atraumatic. Mouth/Throat: Mouth: Mucous membranes are dry. Cardiovascular: Rate and Rhythm: Normal rate. Pulses: Normal pulses. Pulmonary: Effort: Pulmonary effort is normal. No respiratory distress. Abdominal: General: There is no distension. Palpations: Abdomen is soft. There is no mass. Tenderness: There is no abdominal tenderness. There is no guarding or rebound. Hernia: No hernia is present. Musculoskeletal: General: Normal range of motion. Cervical back: Normal range of motion and neck supple. Skin: General: Skin is warm and dry. Neurological: General: No focal deficit present. Mental Status: She is alert and oriented to person, place, and time. Radiology: No orders to display Lab Results: Lab Results POCT TEST - Normal Result Value Ref Range POCT PREG Positive On board controls acceptable with C Line Yes POCT PREG LOT # [id number] POCT PREG TEST DATE 2026-01-16 TOTAL BETA HCG ASSAY BETA HCG 305.50 Non- female and male patients: <5 mIU/mL EKG: If EKG completed, see Procedure Note. Orders and Treatments: Orders Placed This Encounter Procedures POCUS OB US ABD Limited POCT TEST TOTAL BETA HCG ASSAY No orders of the defined types were placed in this encounter. First Provider Eval: ED Events Date/Time Event User Comments 12/19/241944 Medical Screening Begins ANTIONE CR MD -- 12/19/241944 First Provider Evaluation ANTIONE CR MD -- ED COURSE Diagnosis/Impression as of 12/19/242142 Vaginal bleeding affecting early Procedures: Procedures MDM: Medical Decision Making The patient presents from home for evaluation for vaginal bleeding that started several days ago. She reports the bleeding is light and she has no passage of clots or tissue. She reports she has a history of irregular menstrual periods and her last period was in May 2024. She reports she checked a test on the of this month and reports it was positive. That makes her 2 para 1-0-0-1. She is unsure how far along she is. She has started taking vitamins. No abdominal pain or cramping. No dysuria or hematuria. No nausea or vomiting. Vital signs are stable in the ER. Her abdomen is soft and nontender on examination. A limited transabdominal ultrasound shows a thickened endometrial stripe but no gestational sac or pole. She has no adnexal masses and no free fluid noted to suggest an ectopic . Her ABO Rh from previous visit is O+. Will check a beta hCG. Plan for discharge home later on. 2142 -the patient is doing well here in the ER. Her beta hCG is 305 today. She will need to follow-up with [employer] as an outpatient. She remained stable here in the ER and is okay for discharge home. Problems Addressed: Vaginal bleeding affecting early : acute illness or injury Amount and/or Complexity of Data Reviewed Labs: ordered. Decision-making details documented in ED Course. Radiology: independent interpretation performed. Decision-making details documented in ED Course. Risk OTC drugs. Flowsheet Documentation: Scoring Tools: No data recorded Disposition/Condition: ED Disposition ED Disposition Discharge Condition Stable Comment -- Discharge Medications: Patient's Medications START taking these medications No medications on file CONTINUE taking these medications which have NOT CHANGED LEVONORGESTREL-ETHINYL ESTRADIOL 0.1-20 MG-MCG PER TABLET Take 1 tablet by mouth in the morning. METRONIDAZOLE 500 MG TABLET Take 1 tablet by mouth every 12 (twelve) hours. NITROFURANTOIN&NIT. MACROCRYST (MACROBID) 100 MG CAPSULE Take 1 capsule by mouth in the morning and 1 capsule in the evening. SERTRALINE 25 MG TABLET Take 1 tablet by mouth in the morning. START taking Modified Medications as Prescribed No medications on file STOP taking these medications No medications on file Follow-up: Electronically signed by: Jaqueline Garcia DO 12/19/243 T [facility] 2024-02-24 15:54:46 Called pt, pt reports started cycle in the middle of pill back. Pt reports taking pills correctly, advised will take 2-3 pill packs for cycle to adjust. Advised pt to continue taking ocp. Pt verbalized understanding. Dahiana Oliveros RN 02/24/24 3:56 PM [facility] 2024-02-24 15:49:02 Pt is requesting call back about BC pills, states started cycle before it was time on her pills. Please call [phone] (home) ANGUS Yuan [facility] 2024-02-09 15:30:00 Addended by: HUNTER CARTAGENA on: 02/11/2024 12:46 PM Modules accepted: Orders [facility] 2023-09-21 14:32:36 Erna Ronal [id number] 09/21/23 Incoming call from patient after receiving [...] exam. Irina Trevino RN 09/21/2023 2:32 PM UE BRUSHER Irina Trevino RN [facility]
[2024-12-22 20:58] LABS: Absolute Basophils 0.1 K/uL (0-0.5); Absolute Eosinophils 0.2 K/uL (0-0.5); Absolute Lymphocytes (CBC) 3.1 K/uL (0.7-4.9); Absolute Monocytes 0.8 K/uL (0.1-1.3); Absolute Neutrophil 8.1 K/uL (1.8-8.0); Basophils % 0.7 % (0-1.3); Eosinophils % 1.5 % (0-4.4); Hematocrit 38.2 % (36.0-45.0); Hemoglobin 13.5 g/dL (12.0-15.0); Lymphocytes % 25.2 % (15.3-44.8); MCH 30.4 pg (27.0-35.0); MCHC 35.3 g/dL (32.0-36.0); MCV 86.2 fL (80-100); MPV 7.5 fL (7.6-11.3); Monocytes % 6.4 % (3.3-12.3); Neutrophils % 66.2 % (41.7-73.7); Nucleated Red Blood Cells % 0.1 % (0-0); Platelets 429 thou/uL (152-406); RBC Red Blood Cell Count 4.44 M/uL (3.86-4.86); Red Cell Distribution Width 12.5 % (12.1-15.2)
--- NOTE | 2024-12-22 20:58 | RAD REPORT ---
EXAMINATION: Transvaginal OB COMPARISON: 12/15/2024 HISTORY: ABD CRAMPING, TECHNIQUE: Real-time ultrasound was performed through the pelvis. A transvaginal scan was performed t o better visualize the intrauterine contents and adnexa. FINDINGS: The uterus measures 8.8 x 4.9 x 4.6 cm. Endometrium appears thickened to 11-12 mm. No gestational sac is seen. No pelvic ascites. Both ovaries are normal in size shape and echotexture with normal blood flow. IMPRESSION: Mildly thickened endometrial stripe without IUP identified. In the setting of a positive hCG level, t his would indicate of unknown location. Serial hCG level measurements and follow-up pelvic sonography in 7-10 days would be recommended. No pelvic ascites.
[2024-12-22 20:59] LABS: Specific Gravity 1.008 (1.005-1.030); Sqamous Epithelial <5 /HPF (None Seen); Urine Bacteria <20 /HPF (<20); Urine Bilirubin NEGATIVE (Negative); Urine Blood 3+ (OVER) (Negative); Urine Clarity Turbid (Clear); Urine Color Light-Yellow (Yellow); Urine Crystals Unidentified Few /HPF (None Seen); Urine Culture Reflex Order NOT NEEDED; Urine Glucose NEGATIVE (Negative); Urine Ketones NEGATIVE (Negative); Urine Microscopic Reflex YN ORDER UMIC; Urine Mucus Slight /HPF (None Seen); Urine Nitrite NEGATIVE (Negative); Urine Protein NEGATIVE (Negative); Urine Urobilinogen Normal (Normal); Urine WBC <5 /HPF (<5)
[2024-12-22 21:15] LABS: Anion Gap 12.6 mEq/L (5.0-15.0); Potassium 3.6 mEq/L (3.5-5.1)
[2024-12-22] MEDS ORDERED: NA CHLORIDE 0.9% 1,000 ML ONE (21:29)
--- NOTE | 2024-12-22 22:45 | EDPHYS ---
Physician Documentation [facility] Name: Erna Villeda Age: 24 yrs Sex: Female : 2000 Arrival Date: 12/22/2024 Time: 19:43 Bed 16 Private MD: ED Physician Maria G Rebolledo HPI: 12/22 22:40 This 24 yrs old Female presents to ER via Ambulatory with complaints of sp3 Vaginal Bleeding, + Preg <12wks. 22:40 24-year-old female G2, at unknown date secondary to LMP being in May 2020 for sp3 now presents to the ED with chief complaints of episodic vaginal bleeding. Patient was seen here on December 15 with a beta-hCG of 109, and Stevo on December 19 with a beta-hCG of 305. Patient states she has had continued off-and-on bleeding and is here for further evaluation. She denies any other symptoms including abdominal pain, back pain, bleeding elsewhere, syncope, near syncope, or any other signs or symptoms on ROS at this time. She is currently not having any bleeding at all.. Historical: - Allergies: 20:45 No Known Allergies; ha1 - PMHx: 20:45 UTI; ha1 - Immunization history:: Adult Immunizations up to date. - Infectious Disease History:: Denies. - Social history:: Smoking status: unknown. ROS: 22:41 Constitutional: Negative for fever, chills, and weight loss, Eyes: Negative for injury, sp3 pain, redness, and discharge, ENT: Negative for injury, pain, and discharge, Neck: Negative for injury, pain, and swelling, Cardiovascular: Negative for chest pain, palpitations, and edema, Respiratory: Negative for shortness of breath, cough, wheezing, and pleuritic chest pain, Abdomen/GI: Negative for abdominal pain, nausea, vomiting, diarrhea, and constipation, Back: Negative for injury and pain, MS/Extremity: Negative for injury and deformity, Skin: Negative for injury, rash, and discoloration, Neuro: Negative for headache, weakness, numbness, tingling, and seizure, Psych: Negative for depression, anxiety, suicide ideation, homicidal ideation, and hallucinations, Allergy/Immunology: Negative for hives, rash, and allergies, Endocrine: Negative for neck swelling, polydipsia, polyuria, polyphagia, and marked weight changes, Hematologic/Lymphatic: Negative for swollen nodes, abnormal bleeding, and unusual bruising, 22:41 All other systems are negative, Exam: 22:42 Constitutional: This is a well developed, well nourished patient who is awake, alert, sp3 and in no acute distress. Head/Face: Normocephalic, atraumatic. Eyes: Pupils equal round and reactive to light, extra-ocular motions intact. Lids and lashes normal. Conjunctiva and sclera are non-icteric and not injected. Cornea within normal limits. Periorbital areas with no swelling, redness, or edema. Neck: Trachea midline, no thyromegaly or masses palpated, and no cervical lymphadenopathy. Supple, full range of motion without nuchal rigidity, or vertebral point tenderness. No Meningismus. Chest/axilla: Normal chest wall appearance and motion. Nontender with no deformity. No lesions are appreciated. Cardiovascular: Regular rate and rhythm with a normal S1 and S2. No gallops, murmurs, or rubs. Normal PMI, no JVD. No pulse deficits. Respiratory: Lungs have equal breath sounds bilaterally, clear to auscultation and percussion. No rales, rhonchi or wheezes noted. No increased work of breathing, no retractions or nasal flaring. Abdomen/GI: Soft, non-tender, with normal bowel sounds. No distension or tympany. No guarding or rebound. No evidence of tenderness throughout. Back: No spinal tenderness. No costovertebral tenderness. Full range of motion. Skin: Warm, dry with normal turgor. Normal color with no rashes, no lesions, and no evidence of cellulitis. MS/ Extremity: Pulses equal, no cyanosis. Neurovascular intact. Full, normal range of motion. Neuro: Awake and alert, GCS 15, oriented to person, place, time, and situation. Cranial nerves II-XII grossly intact. Motor strength 5/5 in all extremities. Sensory grossly intact. Cerebellar exam normal. Normal gait. Psych: Awake, alert, with orientation to person, place and time. Behavior, mood, and affect are within normal limits. Vital Signs: 20:21 BP 127 / 78; Pulse 84; Resp 18 S; Temp 98.5(O); Pulse Ox 100% on R/A; Weight 79.38 kg; ha1 Height 5 ft. 0 in. ; 23:08 BP 122 / 75; Pulse 81; Resp 17 S; Temp 98.1(O); Pulse Ox 100% ; ha1 20:21 Body Mass Index 34.18 (79.38 kg, 152.4 cm) ha1 MDM: 19:56 Medical Screening Exam initiated lennie 22:43 Data reviewed: vital signs, nurses notes, old medical records, lab test result(s), sp3 radiologic studies. ED course: 24-year-old female less than 12 weeks with episodic vaginal bleeding now resolved. No current bleeding noted. Ultrasound demonstrates endometrial stripe without evidence of IUP. Today's hCG level at 350 so still going up but not as fast as expected though her last hCG on the was at a different lab. I have given her her values from our facility and have advised her to follow-up with her computer terminal operator for which she has an appointment on December 27. She will need repeat blood work at that time. I told her to return for any worsening bleeding, syncope or any other concerns. Patient acknowledged and will be discharged at this time. Have also advised her to avoid any strenuous exercise or sexual intercourse.. 12/22 19:57 Order name: Abo/rh Typing [facility] 12/22 19:57 Order name: Basic Metabolic Panel; Complete Time: 22:22 [facility] 12/22 19:57 Order name: CBC with Diff; Complete Time: 22:22 [facility] 12/22 19:57 Order name: Test, Urine; Complete Time: 22:22 [facility] 12/22 19:57 Order name: Quantitative Hcg; Complete Time: 22:22 [facility] 12/22 19:57 Order name: UA Rfx Chano Cult if indicated; Complete Time: 22:22 [facility] 12/22 19:57 Order name: US Transvaginal Ob; Complete Time: 22:22 [facility] 12/22 19:57 Order name: IV Saline Lock; Complete Time: 20:46 [facility] 12/22 19:57 Order name: Labs collected and sent; Complete Time: 20:46 [facility] 12/22 19:57 Order name: NPO; Complete Time: 20:46 [facility] Administered Medications: 21:44 Drug: NS 0.9% IV 1000 ml IV at 1000 ml once; to be given as a bolus over 60 minutes [facility] Route: IV; Rate: 1000 ml; Site: left antecubital; Disposition Summary: 12/22/24 22:44 Discharge Ordered Notes: Location: Home sp3 Condition: Stable sp3 Diagnosis - Threatened miscarriage, vaginal bleeding sp3 Followup: sp3 - With: Private Physician - When: Upon discharge from the Emergency Department - Reason: Continuance of care Discharge Instructions: - Discharge Summary Sheet sp3 - Threatened Miscarriage sp3 Forms: - Medication Reconciliation Form sp3 - Antibiotic Education sp3 - Prescription Opioid Use sp3 - Patient Portal Instructions sp3 - Leadership Thank You Letter sp3 Signatures: Dispatcher [employer] EDMS Don Alves MD MD cha Patel, Setul, MD MD sp3 Tatiana Woods, RN RN ha1 Corrections: (The following items were deleted from the chart) 19:58 19:57 ABO/RH TYPING+BB.LAB.BRZ ordered. EDMS EDMS 19:58 19:57 BASIC METABOLIC PANEL+C.LAB.BRZ ordered. EDMS EDMS 19:58 19:57 CBC+H.LAB.BRZ ordered. EDMS EDMS 19:58 19:58 Test, Urine+UC.LAB.BRZ ordered. EDMS EDMS 19:58 19:58 QUANTITATIVE HCG+C.LAB.BRZ ordered. EDMS EDMS 19:58 19:58 UA Rfx Chano Cult if indicated+U.LAB.BRZ ordered. EDMS EDMS
--- NOTE | 2024-12-22 22:45 | ER ---
Nurse's Notes [facility] Name: Erna Villeda Age: 24 yrs Sex: Female : 2000 Arrival Date: 12/22/2024 Time: 19:43 Bed 16 Private MD: Diagnosis: Threatened miscarriage, vaginal bleeding Presentation: 12/22 20:21 Chief complaint: Patient states: VAGINAL BLEEDING SINCE LAST WEEK. FOUR WEEKS . ha1 20:21 Coronavirus screen: Client denies travel out of the [place] in the last 14 days. Ebola ha1 Screen: No symptoms or risks identified at this time. Initial Sepsis Screen: Does the patient meet any 2 criteria? No. Patient's initial sepsis screen is negative. Does the patient have a suspected source of infection? No. Patient's initial sepsis screen is negative. Risk Assessment: Do you want to hurt yourself or someone else? Patient reports no desire to harm self or others. Onset of symptoms was December 22, 2024. 20:21 Method Of Arrival: Ambulatory ha1 20:21 Acuity: SIVA 3 ha1 Triage Assessment: 20:45 General: Appears comfortable, Behavior is calm, cooperative. Pain: Complains of pain in ha1 pelvis Pain currently is 5 out of 10 on a pain scale. Quality of pain is described as crampy. Neuro: Level of Consciousness is awake, alert, obeys commands, Oriented to person, place, time, situation. Cardiovascular: Patient's skin is warm and dry. Respiratory: Airway is patent Respiratory effort is even, unlabored, Respiratory pattern is regular, symmetrical. : Reports vaginal bleeding that is with clots, moderate flow. Historical: - Allergies: 20:45 No Known Allergies; ha1 - PMHx: 20:45 UTI; ha1 - Immunization history:: Adult Immunizations up to date. - Infectious Disease History:: Denies. - Social history:: Smoking status: unknown. Screenin:09 [facility] ED Fall Risk Assessment (Adult) History of falling in the last 3 months, ha1 including since admission No falls in past 3 months (0 pts) Confusion or Disorientation No (0 pts) Intoxicated or Sedated No (0 pts) Impaired Gait No (0 pts) Mobility Assist Device Used No (0 pt) Altered Elimination No (0 pt) Score/Fall Risk Level 0 - 2 = Low Risk Oriented to surroundings, Maintained a safe environment, Educated pt \T\ family on fall prevention, incl call for assistance when getting out of bed, Hourly rounding (assess needs \T\ fall precautionary measures) done. Abuse screen: Denies threats or abuse. Denies injuries from another. Nutritional screening: No deficits noted. Tuberculosis screening: No symptoms or risk factors identified. Assessment: 22:40 Reassessment: see triage assessment. ha1 23:08 Reassessment: Patient and/or family updated on plan of care and expected duration. Pain ha1 level reassessed. Patient is alert, oriented x 3, equal unlabored respirations, skin warm/dry/pink. Vital Signs: 20:21 BP 127 / 78; Pulse 84; Resp 18 S; Temp 98.5(O); Pulse Ox 100% on R/A; Weight 79.38 kg; ha1 Height 5 ft. 0 in. ; 23:08 BP 122 / 75; Pulse 81; Resp 17 S; Temp 98.1(O); Pulse Ox 100% ; ha1 20:21 Body Mass Index 34.18 (79.38 kg, 152.4 cm) ha1 ED Course: 12/21 22:30 Patient has correct armband on for positive identification. Bed in low position. Call ha1 light in reach. Side rails up X 1. Adult w/ patient. 22:30 Provided Education on: plan of care . ha1 05 19:45 Patient arrived in ED. im 19:56 Don Alves MD is Attending Physician. lennie 20:06 Attending Physician role handed off by Don Alves MD sp3 20:06 Maria G Rebolledo MD is Attending Physician. sp3 20:34 Transvaginal Ob In Process Unspecified. EDMS 20:45 Triage completed. ha1 20:46 Abo/rh Typing Sent. ha1 20:46 Basic Metabolic Panel Sent. ha1 20:46 CBC with Diff Sent. ha1 20:46 Test, Urine Sent. ha1 20:46 Quantitative Hcg Sent. ha1 20:46 UA Rfx [place] if indicated Sent. ha1 20:46 Inserted saline lock: 22 gauge in left antecubital area, using aseptic technique. Blood ha1 collected. Flushed with 10 mL NS. 23:10 No provider procedures requiring assistance completed. IV discontinued, intact, ha1 bleeding controlled, No redness/swelling at site. Pressure dressing applied. 23:10 Arm band placed on right wrist. ha1 Administered Medications: 21:44 Drug: NS 0.9% IV 1000 ml IV at 1000 ml once; to be given as a bolus over 60 minutes ha1 Route: IV; Rate: 1000 ml; Site: left antecubital; Medication: 23:11 VIS not applicable for this client. ha1 Outcome: :44 Discharge ordered by MD. shell3 23:10 Discharged to home ambulatory, with family, ha1 23:10 Condition: stable 23:10 Discharge instructions given to patient, Instructed on discharge instructions, follow up and referral plans. Demonstrated understanding of instructions, follow-up care, 23:11 Patient left the ED. ha1 Signatures: Dispatcher [employer] EDDon Cummings MD MD cha Patel, Setul, MD MD sp3 Tatiana Woods, RN RN ha1 Sarai Stinson
[2024-12-22 23:31] VITALS: O2SAT 100
[2024-12-22 23:33] VITALS: BP 122/75; TEMP 98.1
== END 2024-12-22 23:11 | disposition home or self-care (01) ==
LOC: ER 19:43
DX: O20.0 Threatened abortion (principal)
CPT/HCPCS: 36415; 76817; 80048; 81001; 81025; 84702; 85025; 86900; 86901; 99284; J7030